=== PATIENT | female | born 1945 | race Caucasian/White ===

== ENCOUNTER 2016-09-16 19:18 | Inpatient (IN) | payer MEDICARE, BC ==
[~2016-09-16] VITALS: Ht 167.6 cm; Wt 63.6 kg
[2016-09-16 19:18] VITALS: BP 130/80; PULSE 80; RESP 22; TEMP 98.9; O2SAT 98
[~2016-09-16 19:18] MED LIST: ADVA100A INH; ALBU1AER INH; ALPR-138 PO; AMPH1TAB36 PO; B COTAB3 PO; BIOT10004 PO; BUPR150T PO; CALC600T34 PO; CYMB60CA PO; FLEX10TA PEG; LEVO112T17 PO; ONDANSETRON HCL 4 MG/2 ML VIAL IV PUSH ONE; PARENTERAL ELECTROLYTES PH 7.4 1000 ML BAG IV ONE; PILO5 PO; PREG100 PO; PROPOFOL 200 MG/20 ML AMP IV ONE; TAB-TAB PO; TOPI25 PO; VALT500T PO; VITA100T55 OR; VITD400 PO
[2016-09-16] MEDS ORDERED: SODIUM CHLORIDE 0.9% FLUSH 10 ML FLUSH IV FLUSH PRN (19:45)
[2016-09-16] MEDS ORDERED: ONDANSETRON HCL 4 MG/2 ML VIAL IVP ONE (19:45)
[2016-09-16] MEDS ORDERED: MORPHINE SULFATE 8 MG/ML INJ IV PUSH ONE (19:45)
--- NOTE | 2016-09-16 19:56 | PD ---
HPI Chief Complaint: abdominal pain Time Seen by Provider: 19:35 Travel History International Travel<30 days: No Contact w/Intl Traveler<30days: No History of Present Illness HPI Patient 70-year-old female presents emergency department for evaluation of abdominal pain the left lower quadrant. Patient states he got fairly severe approximately 1500 this afternoon. She endorses mild nausea without vomiting. She also endorses some mild blood in stool. Patient states this feels like the last time she had an intussusception. Patient relates a complex abdominal surgical history from a gastric bypass sometime in the past where she had 80% of her stomach removed as well as a hernia repair which was Located by an intussusception. Patient states he pain is been gradually worsening since onset. Denies any dysuria. PFSH Past Medical History ADD: Yes Blood Disorders: No Anxiety: Yes Depression: Yes Cancer: No Cardiovascular Problems: No Diabetes: No Diminished Hearing: No Endocrine: Yes Fibromyalgia: Yes GERD: Yes Glaucoma: No Headaches: Yes Immune Disorder: No Kidney Stones: Yes Musculoskeletal: Yes (RIGHT ROTATOR CUFF REPAIR) Psychiatric: Yes (ADD) Reproductive: No Respiratory: No Migraines: Yes Thyroid Disease: Yes PNEUMOCCOCAL Vaccine (Year): 1 Menopausal: Yes Past Surgical History Abdominal Surgery: Yes (GASTRIC BYPASS, INTUSSUSCEPTION 2009) Gynecologic Surgery: Yes ( SECTION) Other Surgery: Yes (GASTRIC BYPASS) Social History Alcohol Use: Yes (occasionally) Tobacco Use: Yes (1 PPD) Substance Use: No Allergies-Medications (Allergen,Severity, Reaction): Coded Allergies: No Known Allergies (Verified , 07/17/15) Reported Meds & Prescriptions Reported Meds & Active Scripts Active Reported Topamax (Topiramate) 50 Mg Tab 50 Mg PO BID Synthroid (Levothyroxine Sodium) 100 Mcg Tab 100 Mcg PO DAILY Lyrica (Pregabalin) 100 Mg Cap 100 Mg PO BID Losartan (Losartan Potassium) 25 Mg Tab 12.5 Mg PO DAILY Cymbalta DR (Duloxetine HCl) 60 Mg Capdr 60 Mg PO DAILY Wellbutrin SR 12 HR (Bupropion HCl) 100 Mg Tab 100 Mg PO Q12HR Adderall Xr 24 HR (Amphetamine/Dextroamphetamine) 20 Mg Cap 20 Mg PO DAILY Once daily in the morning. Xanax (Alprazolam) 0.25 Mg Tab 0.25 Mg PO Q4H PRN Review of Systems Except as stated in HPI: all other systems reviewed are Neg Physical Exam Narrative GENERAL: Well-developed, thin line on her side in minimal discomfort. SKIN: Focused skin assessment warm/dry. HEAD: Atraumatic. Normocephalic. EYES: Pupils equal and round. No scleral icterus. No injection or drainage. ENT: No nasal bleeding or discharge. Mucous membranes pink and moist. NECK: Trachea midline. No JVD. CARDIOVASCULAR: Regular rate and rhythm. No murmur appreciated. RESPIRATORY: No accessory muscle use. Clear to auscultation. Breath sounds equal bilaterally. GASTROINTESTINAL: Abdomen soft, moderately tender in the left lower quadrant, nondistended. Voluntary guarding. No rebound no percussive tenderness. Hepatic and splenic margins not palpable. MUSCULOSKELETAL: No obvious deformities. No clubbing. No cyanosis. No edema. NEUROLOGICAL: Awake and alert. No obvious cranial nerve deficits. Motor grossly within normal limits. Normal speech. PSYCHIATRIC: Appropriate mood and affect; insight and judgment normal. Data Data Last Documented VS Vital Signs Date Time Temp Pulse Resp B/P Pulse Ox O2 Delivery O2 Flow Rate FiO2 09/16/16 19:18 22 09/16/16 19:18 98 Room Air 09/16/16:18 98.9 80 130/80 Orders Complete Blood Count With Diff (09/16/16 19:39) Comprehensive Metabolic Panel (09/16/16 19:39) Lipase (09/16/16 19:39) Lactic Acid (09/16/16 19:39) Prothrombin Time / Inr (Pt) (09/16/16:39) Act Partial Throm Time (Ptt) (09/16/16 19:39) Urinalysis - C+S If Indicated (09/16/16 19:39) Ct Abd/Pel W Iv Contrast(Rout) (09/16/16 19:39) Iv Access Insert/Monitor (09/16/16 19:39) Ecg Monitoring (09/16/16 19:39) Oximetry (09/16/16 19:39) Ondansetron Inj (Zofran Inj) (09/16/16 19:45) Sodium Chloride 0.9% Flush (Ns Flush) (09/16/16 19:45) Electrocardiogram (09/16/16 19:39) Morphine Inj (Morphine Inj) (09/16/16 19:45) Sodium Chlor 0.9% 1000 Ml Inj (Ns 1000 M (09/16/16 20:15) Type And Screen (09/16/16 20:03) Ed Poc Ultrasound (09/16/16 ) Hydromorphone Pf Inj (Dilaudid Pf Inj) (09/16/16 21:45) Iohexol 350 Inj (Omnipaque 350 Inj) (09/16/16 21:36) Hydromorphone Pf Inj (Dilaudid Pf Inj) (09/16/16 22:30) Sodium Chlor 0.9% 1000 Ml Inj (Ns 1000 M (09/16/16 22:45) Chest, Single Ap (09/16/16 ) Admit Order (Ed Use Only) (09/16/16 ) Ampicillin-Sulbactam Inj (Unasyn Inj) (09/16/16 23:15) Labs Laboratory Tests Test 09/16/16 19:50 White Blood Count 8.9 TH/MM3 Red Blood Count 3.39 MIL/MM3 Hemoglobin 9.7 GM/DL Hematocrit 28.7 % Mean Corpuscular Volume 84.8 FL Mean Corpuscular Hemoglobin 28.5 PG Mean Corpuscular Hemoglobin 33.7 % Concent Red Cell Distribution Width 17.9 % Platelet Count 134 TH/MM3 Mean Platelet Volume 10.7 FL Neutrophils (%) (Auto) 78.1 % Lymphocytes (%) (Auto) 14.4 % Monocytes (%) (Auto) 4.4 % Eosinophils (%) (Auto) 2.6 % Basophils (%) (Auto) 0.5 % Neutrophils # (Auto) 6.9 TH/MM3 Lymphocytes # (Auto) 1.3 TH/MM3 Monocytes # (Auto) 0.4 TH/MM3 Eosinophils # (Auto) 0.2 TH/MM3 Basophils # (Auto) 0.0 TH/MM3 CBC Comment DIFF FINAL Differential Comment Prothrombin Time 10.9 SEC Prothromb Time International 1.0 RATIO Ratio Activated Partial 24.4 SEC Thromboplast Time Sodium Level 141 MEQ/L Potassium Level 4.0 MEQ/L Chloride Level 107 MEQ/L Carbon Dioxide Level 26.5 MEQ/L Anion Gap 8 MEQ/L Blood Urea Nitrogen 11 MG/DL Creatinine 0.92 MG/DL Estimat Glomerular Filtration 61 ML/MIN Rate Random Glucose 98 MG/DL Lactic Acid Level 0.8 mmol/L Calcium Level 8.2 MG/DL Total Bilirubin 0.2 MG/DL Aspartate Amino Transf 15 U/L (AST/SGOT) Alanine Aminotransferase 26 U/L (ALT/SGPT) Alkaline Phosphatase 78 U/L Total Protein 5.9 GM/DL Albumin 3.3 GM/DL Lipase 119 U/L Blood Type A NEGATIVE Antibody Screen NEGATIVE Blood Bank Comment MDM Medical Decision Making Medical Screen Exam Complete: Yes Emergency Medical Condition: Yes Interpretation(s) EKG shows normal sinus rhythm normal axis and normal R-wave progression. There is T-wave flattening in 2,3,aVF as well as V5 and V6. No ST elevation seen.. Possible left atrial enlargement. This is a borderline EKG. Differential Diagnosis Intussusception, acute abdomen, ruptured aortic aneurysm, sepsis, urinary tract infection, chronic abdominal pain. Narrative Course Patient roomed in emergency department, my initial impression is a hypotensive patient with a blood pressure of 70 systolic. While nursing is read taking blood pressure I have fast the patient and found that she has no free fluid in the abdomen.. Aorta is normal in caliber. While I have completed this the patient has had her blood pressure cuff adjusted and retaken and her blood pressure is 120/80. Likely this was a falsely low reading. Patient is a very complicated abdominal surgical history, gastric bypass, gastric bypass leakage, intussusception repaired by Dr. Oren Castelan in 2009. Patient has obvious need for repeat CAT scan. Last 24 hours Impressions Abdomen/Pelvis CT 09/16/161938 Signed Impressions: Service Date/Time: Friday, September 16, 2016 21:31 - CONCLUSION: 1. Intussuscepted and dilated small bowel in the lower anterior mid abdomen extending over a length of at least 10 cm. Appearance is similar to a prior study from May 2010. 2. Mild constipation. No free air or free fluid. 3. Nonobstructing calculi right kidney. Previous gastric bypass surgery. Jese Ochoa MD Discussed with Dr. Brunner at 2230 he is in route to the hospital. Dr. Nereida Vázquez has seen and evaluated the patient and the plan is to give a dose of Unasyn on the way to the operating room. The time being I have placed an order for floor admit. Patient care was titrated to Dr. Brunner and the patient was taken to the operating room. Diagnosis Primary Impression: Intussusception of small intestine Admitting Information Admitting Physician Requests: Admit Condition: Stable Kevin Mackenzie MD Sep 16, 2016 19:56
[2016-09-16] MEDS ORDERED: SODIUM CHLOR 0.9% 1000 ML INJ 1,000 ML IV ONE ×2 (20:15→22:45)
[2016-09-16 20:35] LABS: APTT (PATIENT) 24.4 SEC (24.3-30.1); AUTOMATED NEUTROPHIL # 6.9 TH/MM3 (1.8-7.7); BASOPHIL % 0.5 % (0.0-2.0); EOSINOPHIL # 0.2 TH/MM3 (0-0.4); EOSINOPHIL % 2.6 % (0.0-4.0); HEMATOCRIT 28.7 % (35.0-46.0); HEMO FLAGS DIFF FINAL; LYMPH % 14.4 % (9.0-44.0); LYMPHOCYTE # 1.3 TH/MM3 (1.0-4.8); MEAN CELL VOLUME 84.8 FL (80.0-100.0); MEAN CORPUSCULAR HEMOGLOBIN 28.5 PG (27.0-34.0); MEAN CORPUSCULAR HGB CONC 33.7 % (32.0-36.0); MONO % 4.4 % (0.0-8.0); NEUT % 78.1 % (16.0-70.0); PLATELET COUNT 134 TH/MM3 (150-450); PROTHROMBIN TIME - PATIENT 10.9 SEC (9.8-11.6); RED BLOOD COUNT 3.39 MIL/MM3 (4.00-5.30); RED CELL DISTRIBUTION WIDTH 17.9 % (11.6-17.2); WHITE BLOOD COUNT 8.9 TH/MM3 (4.0-11.0)
[2016-09-16 20:41] LABS: ANION GAP 8 MEQ/L (5-15); AST (GOT) 15 U/L (15-37); BICARBONATE 26.5 MEQ/L (21.0-32.0); BLOOD UREA NITROGEN 11 MG/DL (7-18); CHLORIDE 107 MEQ/L (98-107); GLOMERULAR FILTRATION RATE 61 ML/MIN (>89); SODIUM (NA) 141 MEQ/L (136-145)
[2016-09-16 20:44] LABS: ALKALINE PHOSPHATASE 78 U/L (45-117); ALT (GPT) 26 U/L (10-53); TOTAL BILIRUBIN ADULT 0.2 MG/DL (0.2-1.0)
[2016-09-16] MEDS ORDERED: IOHEXOL 350 MG/ML 10 ML VIAL (for RAD DIAG) IV ONE (21:36)
[2016-09-16] MEDS ORDERED: HYDROmorphone HCL PF 1 MG/ML VIAL IV PUSH ONE ×2 (21:45→22:30)
--- NOTE | 2016-09-16 21:56 | RADRPT ---
EXAM DATE/TIME: 09/16/2016 21:31 [facility] COMPARISON: No previous studies available for comparison. INDICATIONS : Left lower quadrant pain. IV CONTRAST: 70 cc Omnipaque 350 (iohexol) IV ORAL CONTRAST: No oral contrast ingested. RADIATION DOSE: 4.73 CTDIvol (mGy) MEDICAL HISTORY : Renal calculi. SURGICAL HISTORY : Gastric bypass. Intussusception ENCOUNTER: Initial ACUITY: 1 day PAIN SCALE: 6/10 LOCATION: Left lower quadrant TECHNIQUE: Volumetric scanning of the abdomen and pelvis was performed. Using automated exposure control and ad justment of the mA and/or kV according to patient size, radiation dose was kept as low as reasonably achievable to obtain optimal diagnostic quality images. FINDINGS: There is a loop of intussuscepted bowel in the lower midline and left abdomen that is very similar ap pearance to prior CT examination from May 2010. There is mild dilatation of more proximal small bowel. There is also mild constipation. No free air. Minimal linear scarring at the lung bases. No acute findings in the liver, spleen, adrenals or pancreas. Previous gastric bypass surgery. No obs tructing calculus upper pole right kidney. Left kidney unremarkable. CONCLUSION: 1. Intussuscepted and dilated small bowel in the lower anterior mid abdomen extending over a length o f at least 10 cm. Appearance is similar to a prior study from May 2010. 2. Mild constipation. No free air or free fluid. 3. Nonobstructing calculi right kidney. Previous gastric bypass surgery. Jese Ochoa MD on September 16, 2016 at 21:46 Board Certified Radiologist. This report was verified electronically.
[2016-09-16] MEDS ORDERED: LOSA25TA PO (22:03)
[2016-09-16] MEDS ORDERED: ALPR.25 PO (22:03)
[2016-09-16] MEDS ORDERED: ADDE20XR PO (22:03)
[2016-09-16] MEDS ORDERED: LEVO.1 PO (22:03)
[2016-09-16] MEDS ORDERED: LYRI100C PO (22:03)
[2016-09-16] MEDS ORDERED: CYMB60CA PO (22:03)
[2016-09-16] MEDS ORDERED: BUPR100CR PO (22:03)
[2016-09-16] MEDS ORDERED: TOPA50TA7 PO (22:03)
--- NOTE | 2016-09-16 22:59 | EKG ---
Date Performed: 09/16/2016 Time Performed: 19:42:36 PTAGE: 70 years EKG: Sinus rhythm POSSIBLE LEFT ATRIAL ENLARGEMENT NONSPECIFIC T-WAVE ABNORMALITY BORDERLINE ECG PREVIOUS TRACING : 07/25/2011 13.04 Compared to prior tracing no significant change DOCTOR: Raman Barragan Interpretating Date/Time 09/16/2016 22:57:37
[2016-09-16 23:00] VITALS: BP 141/69; PULSE 79; RESP 18; O2SAT 98
[2016-09-16] MEDS ORDERED: AMPICILLIN-SULBACTAM INJ 3 GM in SODIUM CHLORIDE 0.9% INJ 100 ML IV ONE (23:15)
[2016-09-16] MEDS ORDERED: DEXAMETHASONE SOD PHOS 4 MG/ML VIAL ONE (23:31)
[2016-09-16] MEDS ORDERED: fentaNYL CITRATE 250 MCG/5 ML AMP ONE (23:31)
[2016-09-16] MEDS ORDERED: SUGAMMADEX SODIUM 200 MG/2 ML VIAL IV PUSH ONE ×2 (23:31)
[2016-09-16] MEDS ORDERED: ACETAMINOPHEN 1000 MG/100 ML VIAL IV ONE (23:31)
[2016-09-16] MEDS ORDERED: BUPIVACAINE/EPINEPHRINE 0.25% PF 30 ML VIAL ONE (23:33)
[2016-09-17] VITALS (8 sets, daily range): BP systolic 107–157; BP diastolic 48–72; PULSE 63–72; RESP 16–20; TEMP 97–99.5; O2SAT 93–99
--- NOTE | 2016-09-17 00:05 | RADRPT ---
EXAM DATE/TIME: 09/16/2016 23:38 [facility] COMPARISON: No previous studies available for comparison. INDICATIONS : Shortness of breath. MEDICAL HISTORY : Renal calculi. SURGICAL HISTORY : Gastric bypass. Intussusception ENCOUNTER: Initial ACUITY: 1 day PAIN SCORE: 6/10 LOCATION: Bilateral chest FINDINGS: A single view of the chest demonstrates the lungs to be symmetrically aerated without evidence of mas s, infiltrate or effusion. The cardiomediastinal contours are unremarkable. Osseous structures are intact. CONCLUSION: Normal examination. Leon Sorenson MD on September 17, 2016 at 0:04 Board Certified Radiologist. This report was verified electronically.
[2016-09-17] MEDS: SODIUM CHLOR 0.9% 1000 ML INJ 1,000 ML IV SCH ×2 (00:33→13:53)
--- NOTE | 2016-09-17 00:41 | HHI.PR ---
Immediate Post Op Note Procedure Date: Sep 17, 2016 Pre Op Diagnosis: (1) Intussusception of small intestine Post Op Diagnosis: (1) Intussusception of small intestine Surgeon: Israel Stauffer [employer] Consultant(s): none Procedure: exploratory laparotomy, reduction of intussusception Findings: intussusception Complications: none Specimen(s) removed: none Estimated blood loss: 10ml Anesthesia: General, Local Drains: None IVF Patient to: PACU Patient Condition: Good Israel Stauffer MD Sep 17, 2016 00:41
[2016-09-17] MEDS ORDERED: SODIUM CHLORIDE 0.9% FLUSH 10 ML FLUSH IV FLUSH PRN (00:45)
[2016-09-17] MEDS ORDERED: PILL SPLITTER OTHER PRN (01:00)
[2016-09-17] MEDS: KETOROLAC TROMETHAMINE 30 MG/ML (IVP) VIAL IV PUSH PRN ×2 (01:14→09:15)
[2016-09-17] MEDS: SODIUM CHLORIDE 0.9% FLUSH 10 ML FLUSH IV FLUSH SCH ×3 (02:11→20:52)
[2016-09-17] MEDS: ACETAMINOPHEN/HYDROcodone 325 MG/5 MG TAB PO PRN ×5 (02:12→22:30)
[2016-09-17] MEDS: LEVOTHYROXINE SODIUM 100 MCG TAB PO SCH (04:16)
--- NOTE | 2016-09-17 05:39 | MH ---
cc: VICK HERRERA DATE OF ADMISSION: 09/16/2016 CHIEF COMPLAINT Intussusception. HISTORY OF PRESENT ILLNESS The patient is a 60-year-old female with complex past surgical history to include gastric bypass who presents in the emergency department at [facility] with severe abdominal pain. The patient underwent CT scan for abdominal pain which showed an acute intussusception. The patient had a previous episode of intussusception in 2009 treated by Oren Castelan MD, with laparotomy and reduction of intussusception. The patient also underwent a recent robotic revision of a gastric bypass followed by emergency exploration for a complication, so the patient describes in March at the [facility]. The patient states that since her surgery at the [facility] she has done well until a today at 3 o'clock this afternoon when she developed mild nausea without vomiting, with worsening pain and blood in her stool. REVIEW OF SYSTEMS A 12-point review of systems done with the patient and is negative except for the pertinent positives mentioned above in the History of Present Illness. PAST MEDICAL HISTORY 1. Anxiety and depression. 2. Fibromyalgia. 3. Gastroesophageal reflux disease. 4. Headaches. PAST SURGICAL HISTORY 1. Gastric bypass in early 1999. 2. Intussusception in 2009. 3. Revision of gastric bypass surgeries at [facility] in March x 2, robotic followed by open. SOCIAL HISTORY Occasionally drinks alcohol. ALLERGIES No known drug allergies. MEDICATIONS 1. Topamax. 2. Synthroid. 3. Lyrica. 4. Losartan. 5. Cymbalta. 6. Wellbutrin. 7. Adderall. 8. Xanax. FAMILY HISTORY Noncontributory. PHYSICAL EXAMINATION VITAL SIGNS: Temperature 98.9 degrees, pulse 80, blood pressure 130/80, O2 saturation 98%. GENERAL: The patient is a female and very uncomfortable, in no acute distress. HEENT: Head normocephalic, atraumatic. Pupils round and reactive to accommodate and light. Sclerae anicteric. LUNGS: Clear to auscultation bilaterally. Nonlabored breathing pattern. HEART: Regular rhythm. ABDOMEN: Soft, nondistended. Severe pain in epigastric. No focal peritonitis in epigastric area; without diffuse rebound or guarding or peritonitis. No ascites. Previous surgical scars without hernia. EXTREMITIES: No clubbing, cyanosis or edema. BACK: No CVA tenderness. NEUROLOGIC EXAM: The patient is alert, oriented x 3. Moving all extremities nonfocally. Cranial nerves II-XII are grossly intact. ASSESSMENT/PLAN The patient is a 70-year-old female with acute abdominal pain and intussusception found on CT scan. I discussed with the patient options including transfer to a tertiary center for bariatric surgery and surgical evaluation due to her complexity as well as nonoperative management versus operation here at [facility] urgently. The patient very much wishes to undergo urgent surgery at [facility] at this time. The risks, benefits and alternatives to exploratory laparotomy, reduction of intussusception and possible bowel resection were explained to the patient in detail and she agrees to undergo the procedure. We will proceed to the emergency room urgently for exploratory laparotomy. Vick Herrera MD AWG/SSB /11:16 PM /5:26 AM
[2016-09-17] MEDS: buPROPion HCL 100 MG SUSTAINED RELEASE TAB PO SCH ×2 (09:00→20:51)
[2016-09-17] MEDS: DEXTROAMPHETAMINE/AMPHETAMINE XR 20 MG CAP PO SCH (09:00)
[2016-09-17] MEDS: LOSARTAN 25 MG TAB PO SCH (09:00)
[2016-09-17] MEDS: PANTOPRAZOLE SODIUM 40 MG VIAL IV SCH (09:14)
[2016-09-17] MEDS: PREGABALIN 100 MG CAP PO SCH ×2 (09:15→20:51)
[2016-09-17] MEDS: TOPIRAMATE 25 MG TAB PO SCH ×2 (09:15→20:51)
[2016-09-17] MEDS: DULoxetine HCl DR 60 MG CAP PO SCH (09:16)
[2016-09-17 09:26] LABS: BLOOD, URINE NEG (NEG); GLUCOSE,URINE NEG (NEG); KETONE, URINE NEG (NEG); NITRITE,URINE NEG (NEG); URINE COLOR YELLOW (YELLW/STRAW)
[2016-09-17 09:30] LABS: COMMENT (UR) CULT NOT INDICATED; CULTURE IF INDICATED CULT NOT INDICATED
[2016-09-17] MEDS: MORPHINE SULFATE 4 MG/ML INJ IV PUSH PRN ×2 (12:08→21:02)
[2016-09-17] MEDS: ALPRAZolam 0.25 MG TAB PO PRN ×2 (12:08→22:15)
--- NOTE | 2016-09-17 18:02 | HHI.PR ---
Subjective Subjective Notes pain controlled Objective Vitals/I&O Vital Signs Date Time Temp Pulse Resp B/P Pulse Ox O2 Delivery O2 Flow Rate FiO2 09/17/16 16:30 99.5 68 20 140/65 97 09/17/16 12:11 Nasal Cannula 2.00 Labs Laboratory Tests Test 09/16/16 09/17/16 19:50 09:00 Prothrombin Time 10.9 Prothromb Time International 1.0 Ratio Activated Partial 24.4 Thromboplast Time Sodium Level 141 Potassium Level 4.0 Chloride Level 107 Carbon Dioxide Level 26.5 Anion Gap 8 Blood Urea Nitrogen 11 Creatinine 0.92 Estimat Glomerular Filtration 61 Rate Random Glucose 98 Lactic Acid Level 0.8 Calcium Level 8.2 Total Bilirubin 0.2 Aspartate Amino Transf 15 (AST/SGOT) Alanine Aminotransferase 26 (ALT/SGPT) Alkaline Phosphatase 78 Total Protein 5.9 Albumin 3.3 Lipase 119 Blood Type A NEGATIVE Antibody Screen NEGATIVE Blood Bank Comment White Blood Count 8.9 Red Blood Count 3.39 Hemoglobin 9.7 Hematocrit 28.7 Mean Corpuscular Volume 84.8 Mean Corpuscular Hemoglobin 28.5 Mean Corpuscular Hemoglobin 33.7 Concent Red Cell Distribution Width 17.9 Platelet Count 134 Mean Platelet Volume 10.7 Neutrophils (%) (Auto) 78.1 Lymphocytes (%) (Auto) 14.4 Monocytes (%) (Auto) 4.4 Eosinophils (%) (Auto) 2.6 Basophils (%) (Auto) 0.5 Neutrophils # (Auto) 6.9 Lymphocytes # (Auto) 1.3 Monocytes # (Auto) 0.4 Eosinophils # (Auto) 0.2 Basophils # (Auto) 0.0 CBC Comment DIFF FINAL Differential Comment Urine Color YELLOW Urine Turbidity CLEAR Urine pH 5.0 Urine Specific [place] 1.037 Urine Protein NEG Urine Glucose (UA) NEG Urine Ketones NEG Urine Occult Blood NEG Urine Nitrite NEG Urine Bilirubin NEG Urine Urobilinogen LESS THAN 2.0 Urine Leukocyte Esterase NEG Urine RBC LESS THAN 1 Urine WBC 1 Microscopic Urinalysis Comment CULT NOT INDICATED Cardiovascular: Regular Lungs: Clear Abdomen: Non-distended, Post-op tenderness Extremities: No edema, Perfused Narrative Exam incision c/d/i A/P Assessment and Plan 70yo female s/p exLap, reduction of intussusception, stable clears pain control OOB Israel Stauffer MD Sep 17, 2016 18:02
[2016-09-17] MEDS: ENOXAPARIN SODIUM 40 MG/0.4 ML SYRINGE SQ SCH (22:16)
[2016-09-18 00:35] VITALS: BP 125/64; PULSE 75; RESP 17; TEMP 99.3; O2SAT 96
[2016-09-18] MEDS: SODIUM CHLOR 0.9% 1000 ML INJ 1,000 ML IV SCH ×2 (02:14→16:33)
[2016-09-18] MEDS: LEVOTHYROXINE SODIUM 100 MCG TAB PO SCH (03:55)
[2016-09-18] MEDS: ACETAMINOPHEN/HYDROcodone 325 MG/5 MG TAB PO PRN ×5 (03:56→20:10)
[2016-09-18] MEDS: ALPRAZolam 0.25 MG TAB PO PRN ×3 (04:10→20:10)
[2016-09-18 08:00] VITALS: BP 146/79; PULSE 81; RESP 20; TEMP 96.3; O2SAT 94
[2016-09-18] MEDS: DULoxetine HCl DR 60 MG CAP PO SCH (08:10)
[2016-09-18] MEDS: buPROPion HCL 100 MG SUSTAINED RELEASE TAB PO SCH ×2 (08:10→20:09)
[2016-09-18] MEDS: PREGABALIN 100 MG CAP PO SCH ×2 (08:10→20:09)
[2016-09-18] MEDS: TOPIRAMATE 25 MG TAB PO SCH ×2 (08:10→20:09)
[2016-09-18] MEDS: LOSARTAN 25 MG TAB PO SCH (08:11)
[2016-09-18] MEDS: PANTOPRAZOLE SODIUM 40 MG VIAL IV SCH (08:11)
[2016-09-18] MEDS: DEXTROAMPHETAMINE/AMPHETAMINE XR 20 MG CAP PO SCH (08:12)
[2016-09-18] MEDS: KETOROLAC TROMETHAMINE 30 MG/ML (IVP) VIAL IV PUSH PRN ×3 (08:12→23:37)
[2016-09-18] MEDS: SODIUM CHLORIDE 0.9% FLUSH 10 ML FLUSH IV FLUSH SCH ×2 (08:24→20:12)
--- NOTE | 2016-09-18 11:29 | RADRPT ---
EXAM DATE/TIME: 09/18/2016 10:37 [facility] COMPARISON: CT ABDOMEN & PELVIS W CONTRAST, September 16, 2016, 21:31. INDICATIONS : Abdominal intussception. MEDICAL HISTORY : Renal calculi. SURGICAL HISTORY : Gastric bypass. Intussusception ENCOUNTER: Subsequent ACUITY: 3 days PAIN SCORE: 3/10 LOCATION: Abdomen, all quadrants. FINDINGS: The cecum is distended measuring 11.3 cm in size. There is moderate amount of stool involving the lashawn cending colon. No definite free air is identified for technique. Small bowel loops are nonspecific. T he patient's prior CT examination demonstrated small bowel intussusception. Inhomogeneous area of gas collection is present across the upper abdomen from the patient's transverse colon collapsed. CONCLUSION: Dilated cecum and the rest of the colon appears decompressed with extensive stool and the visualized bowel gas appear nonspecific for technique in this patient with known intussusception. Dawit Curtis MD on September 18, 2016 at 11:25 Board Certified Radiologist. This report was verified electronically.
[2016-09-18 12:00] VITALS: BP 119/57; PULSE 68; RESP 20; TEMP 96.1; O2SAT 96
--- NOTE | 2016-09-18 12:07 | MP ---
cc: VICK HERRERA DATE OF SURGERY 09/16/2016 PREOPERATIVE DIAGNOSES 1. History of gastric bypass. 2. Intussusception. POSTOPERATIVE DIAGNOSES 1. History of gastric bypass. 2. Intussusception. PROCEDURE 1. Exploratory laparotomy. 2. Open reduction of intussusception. ATTENDING SURGEON MD [employer] Staff. ANESTHESIA General. BLOOD LOSS Less than 10 cc. COMPLICATIONS None. FINDINGS A long intussusception, approximately 25 cm, completely reduced without evidence of any bowel ischemia or injury, lead point being the J/J anastomosis. INDICATIONS FOR PROCEDURE The patient is a 70-year-old female with a history of [place]-en-Y gastric bypass and previous history of intussusception who presented to [facility] with severe onset of abdominal pain. The patient states that the pain is similar to her episode of intussusception seven years ago that was treated with open reduction by Dr. Oren Castelan. The patient underwent a CT scan which was concerning for intussusception. The patient was seen and noted to be stable, without peritonitis but significant tenderness and discussion with the patient about treatment including the risks, benefits and alternatives to exploratory laparotomy were discussed with the patient. The patient agreed to undergo the procedure. All her questions were answered to her satisfaction. PROCEDURE After informed consent was obtained, the patient was taken to the operating and placed in position, the patient given general endotracheal anesthesia. The patient's abdomen was prepped and draped in the usual sterile fashion. Time-out was performed. The abdomen was entered just above the umbilicus. There was an approximately 6 cm incision in the patient's previous scar with an 11 blade scalpel. Using Bovie electrocautery, dissected the subcutaneous tissue, carried down to the midline fascia. The belly was reopened with the Bovie electrocautery over a hemostat. Once we got the layer to the peritoneum, we were able to place our finger into the abdominal cavity and were able to retract the abdominal wall up and opened the fascia the complete length of the incision. There were minimal adhesions. We lysed a few small adhesions and then we identified intussusception under the incision. This was somewhat delivered into the incision and we found the proximal and distal areas. There was an intussusception with the lead point at the J/J anastomosis with distal bowel intussuscepted into the more proximal point of the J/J anastomosis. This was milked back with very minimal retraction placed on the intussuscepted bowel and this delivered quite easily with some slow, constant pressure. The bowel was clearly viable and intact with no signs of any significant ischemia or trauma. There was a little mild edema of the bowel on the external portion of the intussusception. At this point in time we did quickly evaluated the remainder of the abdomen. There was no evidence of any intraabdominal pathology. There were minimal adhesions throughout the abdomen and the liver, the intraperitoneal portion of the colon and small bowel felt normal and in normal anatomic position. At this point in time, the bowel was in normal anatomic position and turned our attention towards closure. We closed the abdomen with a single #1 looped PDS. We closed the skin with 3-0 Vicryl, 4-0 Monocryl and Dermabond. Of note, the patient did have some local anesthetic instilled into the incision prior to closure of the skin. The patient was brought to the recovery room in stable condition. The patient tolerated the procedure well with no apparent complications. All counts were correct present. I was present and scrubbed for the entire procedure. MD EDUARD Biggs/MILLI /12:53 AM /11:46 AM
--- NOTE | 2016-09-18 18:40 | HHI.PR ---
Subjective Subjective Notes gas pain, KUB with dilated colon/constipation Objective Vitals/I&O Vital Signs Date Time Temp Pulse Resp B/P Pulse Ox O2 Delivery O2 Flow Rate FiO2 09/18/16 17:40 21 09/18/16 12:00 96.1 68 20 119/57 96 09/17/16 18:30 Nasal Cannula 2.00 Cardiovascular: Regular Lungs: Clear Abdomen: Post-op tenderness Extremities: No edema, Perfused Narrative Exam incision c/d/i A/P Assessment and Plan 70yo female s/p exLap, reduction of intussusception, stable clears constipation, try fleets enema OOB Israel Stauffer MD Sep 18, 2016 18:40
[2016-09-18 20:15] VITALS: BP 113/51; PULSE 70; RESP 17; TEMP 98.3; O2SAT 98
[2016-09-18] MEDS ORDERED: SOD PHOSPHATE/SOD BIPHOSPHATE (ADULT) ENEMA 133ML RECTAL ONE (20:15)
[2016-09-18] MEDS: ENOXAPARIN SODIUM 40 MG/0.4 ML SYRINGE SQ SCH (23:00)
[2016-09-19] VITALS (7 sets, daily range): BP systolic 116–138; BP diastolic 56–82; PULSE 66–88; RESP 16–18; TEMP 96.3–98.4; O2SAT 95–100
[2016-09-19] MEDS: ACETAMINOPHEN/HYDROcodone 325 MG/5 MG TAB PO PRN ×4 (03:40→17:47)
[2016-09-19] MEDS: SODIUM CHLOR 0.9% 1000 ML INJ 1,000 ML IV SCH ×2 (05:53→19:13)
[2016-09-19] MEDS: LEVOTHYROXINE SODIUM 100 MCG TAB PO SCH (06:13)
--- NOTE | 2016-09-19 07:02 | RADRPT ---
EXAM DATE/TIME: 09/19/2016 06:33 [facility] COMPARISON: ABDOMEN KUB ONLY, September 18, 2016, 10:37. INDICATIONS : Abdominal intussusception, evaluate ileus MEDICAL HISTORY : Renal calculi. intussusception SURGICAL HISTORY : repair of intussusception, partial gastrectomy ENCOUNTER: Subsequent ACUITY: 3 days PAIN SCORE: 3/10 LOCATION: Bilateral abdomen FINDINGS: Supine view of the abdomen was performed. The abdominal bowel gas pattern is normal. Gas-filled loop s of nondilated large and small bowel. No abnormal masses, calcifications, or organomegaly is seen. The osseous structures are unremarkable. CONCLUSION: Normal examination. Nestor Park Jr., MD on September 19, 2016 at 7:00 Board Certified Radiologist. This report was verified electronically.
[2016-09-19] MEDS: DULoxetine HCl DR 60 MG CAP PO SCH (08:23)
[2016-09-19] MEDS: DEXTROAMPHETAMINE/AMPHETAMINE XR 20 MG CAP PO SCH (08:25)
[2016-09-19] MEDS: ALPRAZolam 0.25 MG TAB PO PRN ×3 (08:25→17:46)
[2016-09-19] MEDS: SODIUM CHLORIDE 0.9% FLUSH 10 ML FLUSH IV FLUSH SCH ×2 (08:25→20:26)
[2016-09-19] MEDS: PREGABALIN 100 MG CAP PO SCH ×2 (08:26→20:26)
[2016-09-19] MEDS: buPROPion HCL 100 MG SUSTAINED RELEASE TAB PO SCH ×2 (08:26→20:26)
[2016-09-19] MEDS: TOPIRAMATE 25 MG TAB PO SCH ×2 (08:27→20:26)
[2016-09-19] MEDS: LOSARTAN 25 MG TAB PO SCH (08:27)
[2016-09-19] MEDS: PANTOPRAZOLE SODIUM 40 MG VIAL IV SCH (08:27)
[2016-09-19] MEDS: KETOROLAC TROMETHAMINE 30 MG/ML (IVP) VIAL IV PUSH PRN ×2 (09:50→16:41)
--- NOTE | 2016-09-19 13:01 | HHI.PR ---
Subjective Subjective Notes feels better, passing flatus Objective Vitals/I&O Vital Signs Date Time Temp Pulse Resp B/P Pulse Ox O2 Delivery O2 Flow Rate FiO2 09/19/16 09:36 98 09/19/16 08:00 97.8 85 16 138/74 09/18/16 20:00 Room Air 09/18/16 17:40 21 09/17/16 18:30 2.00 Cardiovascular: Regular Lungs: Clear Abdomen: Post-op tenderness Extremities: No edema, Perfused Narrative Exam incision c/d/i A/P Assessment and Plan 70yo female s/p exLap, reduction of intussusception, stable regular diet constipation, add colace OOB KUB looks better Israel Stauffer MD Sep 19, 2016 13:01
[2016-09-19] MEDS ORDERED: MAGNESIUM HYDROXIDE SUSP 30 ML CUP PO ONE (13:15)
[2016-09-19] MEDS: DOCUSATE SODIUM 100 MG CAP PO SCH ×2 (13:25→20:26)
[2016-09-19] MEDS: ENOXAPARIN SODIUM 40 MG/0.4 ML SYRINGE SQ SCH (23:00)
[2016-09-20] VITALS: BP_SYST 0; BP_SYST 121; BP_DIAS 0; BP_DIAS 59; PULSE 0; PULSE 93; RESP 0; RESP 20; TEMP 100.6; O2SAT 0; O2SAT 93
[2016-09-20 04:10] VITALS: TEMP 98.9
[2016-09-20] MEDS: KETOROLAC TROMETHAMINE 30 MG/ML (IVP) VIAL IV PUSH PRN ×2 (04:27→10:12)
[2016-09-20] MEDS: LEVOTHYROXINE SODIUM 100 MCG TAB PO SCH (04:32)
[2016-09-20 08:00] VITALS: BP 103/58; PULSE 75; RESP 18; TEMP 98.4; O2SAT 100
[2016-09-20] MEDS: SODIUM CHLOR 0.9% 1000 ML INJ 1,000 ML IV SCH (08:33)
[2016-09-20] MEDS: DEXTROAMPHETAMINE/AMPHETAMINE XR 20 MG CAP PO SCH (09:00)
[2016-09-20] MEDS: LOSARTAN 25 MG TAB PO SCH (09:00)
[2016-09-20 09:26] VITALS: O2SAT 96
[2016-09-20] MEDS: buPROPion HCL 100 MG SUSTAINED RELEASE TAB PO SCH (10:02)
[2016-09-20] MEDS: TOPIRAMATE 25 MG TAB PO SCH (10:03)
[2016-09-20] MEDS: DULoxetine HCl DR 60 MG CAP PO SCH (10:03)
[2016-09-20] MEDS: DOCUSATE SODIUM 100 MG CAP PO SCH (10:03)
[2016-09-20] MEDS: PREGABALIN 100 MG CAP PO SCH (10:04)
[2016-09-20] MEDS: PANTOPRAZOLE SODIUM 40 MG VIAL IV SCH (10:05)
[2016-09-20] MEDS: SODIUM CHLORIDE 0.9% FLUSH 10 ML FLUSH IV FLUSH SCH (10:06)
--- NOTE | 2016-09-20 11:32 | HHI.DS ---
Discharge Summary Admission Date Sep 16, 2016 at 23:08 Discharge Date: Sep 20, 2016 Admitting Diagnosis Intussception (1) Intussusception of small intestine Diagnosis: Principal Procedures Exploratory Laparotomy, reduction of intussusception Brief History The patient is a 70yo female with history of gastric bypass and intussusception who [place] [facility] [place] and recurrent intussusception. CBC/BMP: 09/16/16 1950 09/16/16 1950 PE at Discharge incision c/d/i Hospital Course The patient is a 70yo female with history of gastric bypass and intussusception who presented [place] [facility] [place] pain and recurrent intussusception. She was taken to the OR for Exploratory Laparotomy, reduction of intussusception, which she tolerated well. Her pain was controlled and she remained stable postoperatively. She was discharged home after an uncomplicated course. Pt Condition on Discharge: Good Discharge Disposition: Discharge Home Discharge Instructions DIET: Follow Instructions for: As Tolerated, No Restrictions Activities you can perform: Partial Weight Bearing Israel Stauffer MD Sep 20, 2016 11:32
== END 2016-09-20 13:32 | disposition home or self-care (01) | DRG 346 ==
LOC: NEPD 19:18 → NEDA 23:08 → N06B 09-17 02:26
PROVIDERS: ADMIT Surgery; ATTEND Surgery
PROC: 0WJP0ZZ Inspection of Gastrointestinal Tract, Open Approach (ICD-10-PCS; 2016-09-16)
PROC: 0DSA0ZZ Reposition Jejunum, Open Approach (ICD-10-PCS; principal; 2016-09-16 23:53)
DX: K56.1 Intussusception (principal); N20.0 Calculus of kidney; F32.9 Major depressive disorder, single episode, unspecified; F41.9 Anxiety disorder, unspecified; Z98.84 Bariatric surgery status; M79.7 Fibromyalgia; K21.9 Gastro-esophageal reflux disease without esophagitis; Z87.442 Personal history of urinary calculi; F17.210 Nicotine dependence, cigarettes, uncomplicated; K59.00 Constipation, unspecified
CPT/HCPCS: 71010; 74000; 74177; 80053; 81001; 83605; 83690; 85025; 85610; 85730; 86850; 86900; 86901; 93005; 96361; 96374; 96375; 96376; C9113; J0131; J0295; J1100; J1170; J1885; J2270; J2405; J3010; J7030; Q9967

== ENCOUNTER 2016-10-11 07:57 | Inpatient (IN) | payer MEDICARE, BC ==
[~2016-10-11] VITALS: Ht 167.6 cm; Wt 53.0 kg
[2016-10-11] VITALS (7 sets, daily range): BP systolic 132–159; BP diastolic 64–74; PULSE 86–105; RESP 14–20; TEMP 98.6–101.2; O2SAT 96–98
[~2016-10-11 07:57] MED LIST changes: +ADDE20XR PO; -ADVA100A INH; -ALBU1AER INH; -ALPR-138 PO; +ALPR.25 PO; -AMPH1TAB36 PO; -B COTAB3 PO; -BIOT10004 PO; +BUPR100CR PO; -BUPR150T PO; -CALC600T34 PO; -FLEX10TA PEG; +LEVO.1 PO; -LEVO112T17 PO; +LOSA25TA PO; +LYRI100C PO; -ONDANSETRON HCL 4 MG/2 ML VIAL IV PUSH ONE; -PARENTERAL ELECTROLYTES PH 7.4 1000 ML BAG IV ONE; -PILO5 PO; -PREG100 PO; -PROPOFOL 200 MG/20 ML AMP IV ONE; -TAB-TAB PO; +TOPA50TA7 PO; -TOPI25 PO; -VALT500T PO; -VITA100T55 OR; -VITD400 PO
--- NOTE | 2016-10-11 08:26 | PD ---
HPI Chief Complaint: Wound/Suture/Staple Re-Check Time Seen by Provider: 08:11 Travel History International Travel<30 days: No Contact w/Intl Traveler<30days: No Traveled to known affect area: No History of Present Illness HPI 71yo F with a complicated surgical history presents with c/o worsening abdominal pain. Pt had ex lap and reduction of intussusception for Dr. Stauffer 09/16/16 and was hospitalized till 09/20/16. Pt followed up with Dr. Stauffer October [address] scan in [place] October 08. That was reviewed by surgery and did not show any abscess but pt was informed to come to the ED if pain worsens. Pt states that pain has worsened and is periumbilical and right sided. Denies any fever at home. Denies any chest pains, sob, n/v, urinary complaints. Took narco this morning which did help with pain. Last drank water /coffee at 7am. PFSH Past Medical History ADD: Yes Arthritis: No Asthma: No Blood Disorders: No Anxiety: Yes Depression: Yes Cancer: No Cardiovascular Problems: No Cerebrovascular Accident: No Diabetes: No Diminished Hearing: No Endocrine: Yes Fibromyalgia: Yes GERD: Yes Glaucoma: No Headaches: Yes Immune Disorder: No Kidney Stones: Yes Musculoskeletal: Yes (RIGHT ROTATOR CUFF REPAIR) Psychiatric: Yes (ADD) Reproductive: No Respiratory: No Migraines: Yes Thyroid Disease: Yes Ulcer: No PNEUMOCCOCAL Vaccine (Year): 1 Menopausal: Yes Past Surgical History Abdominal Surgery: Yes (GASTRIC BYPASS, INTUSSUSCEPTION 2009) Gynecologic Surgery: Yes ( SECTION) Other Surgery: Yes (GASTRIC BYPASS) Social History Alcohol Use: No Tobacco Use: No Substance Use: No Allergies-Medications (Allergen,Severity, Reaction): Coded Allergies: No Known Allergies (Verified , 07/17/15) Reported Meds & Prescriptions Reported Meds & Active Scripts Active Reported Lortab (Hydrocodone-Acetaminophen) 5-325 Mg Tab 1 Tab PO Q6H PRN Topamax (Topiramate) 50 Mg Tab 50 Mg PO BID Synthroid (Levothyroxine Sodium) 100 Mcg Tab 100 Mcg PO DAILY Lyrica (Pregabalin) 100 Mg Cap 100 Mg PO BID Losartan (Losartan Potassium) 25 Mg Tab 12.5 Mg PO DAILY Cymbalta DR (Duloxetine HCl) 60 Mg Capdr 60 Mg PO DAILY Wellbutrin SR 12 HR (Bupropion HCl) 100 Mg Tab 100 Mg PO Q12HR Adderall Xr 24 HR (Amphetamine/Dextroamphetamine) 20 Mg Cap 20 Mg PO DAILY Once daily in the morning. Xanax (Alprazolam) 0.25 Mg Tab 0.25 Mg PO Q4H PRN Review of Systems Except as stated in HPI: all other systems reviewed are Neg Physical Exam Narrative GENERAL: 71yo F in mild distress. SKIN: Focused skin assessment warm/dry. HEAD: Atraumatic. Normocephalic. CARDIOVASCULAR: Regular rate and rhythm. No murmur appreciated. RESPIRATORY: No accessory muscle use. Clear to auscultation. Breath sounds equal bilaterally. GASTROINTESTINAL: Abdomen soft, +Midline surgical scar with some surrounding erythema but no purulent discharge or drainage. Mild edema surrounding surgical site and pt states it has gotten worst, ttp. +TTP suprapubic, LUQ, RUQ , RLQ. MUSCULOSKELETAL: No obvious deformities. No clubbing. No cyanosis. No edema. NEUROLOGICAL: Awake and alert. No obvious cranial nerve deficits. Motor grossly within normal limits. Normal speech. PSYCHIATRIC: Appropriate mood and affect; insight and judgment normal. Data Data Last Documented VS Vital Signs Date Time Temp Pulse Resp B/P Pulse Ox O2 Delivery O2 Flow Rate FiO2 10/11/16 10:40 90 18 133/67 98 Room Air 10/11/16 08:12 98.6 Orders Complete Blood Count With Diff (10/11/16 08:20) Comprehensive Metabolic Panel (10/11/16 08:20) Lipase (10/11/16 08:20) Prothrombin Time / Inr (Pt) (10/11/16 08:20) Act Partial Throm Time (Ptt) (10/11/16 08:20) Urinalysis - C+S If Indicated (10/11/16 08:20) Ct Abd/Pel W Iv Contrast(Rout) (10/11/16 08:20) Iv Access Insert/Monitor (10/11/16 08:20) Ecg Monitoring (10/11/16 08:20) Oximetry (10/11/16 08:20) Sodium Chloride 0.9% Flush (Ns Flush) (10/11/16 08:30) Morphine Inj (Morphine Inj) (10/11/16 08:30) Urine Culture (10/11/16 08:25) Piperacil-Tazo 3.375 Gm Premix (Zosyn 3. (10/11/16 09:30) Blood Culture (10/11/16 09:19) Lactic Acid Sepsis Protocol (10/11/16 09:19) Sodium Chlor 0.9% 1000 Ml Inj (Ns 1000 M (10/11/16 09:30) Iohexol 350 Inj (Omnipaque 350 Inj) (10/11/16 09:36) Morphine Inj (Morphine Inj) (10/11/16 10:15) Consult General Surgery (10/11/16 ) Admit Order (Ed Use Only) (10/11/16 10:58) Labs Laboratory Tests Test 10/11/16 10/11/16 08:25 09:00 White Blood Count 21.4 TH/MM3 Red Blood Count 3.55 MIL/MM3 Hemoglobin 9.4 GM/DL Hematocrit 29.1 % Mean Corpuscular Volume 82.1 FL Mean Corpuscular Hemoglobin 26.6 PG Mean Corpuscular Hemoglobin 32.4 % Concent Red Cell Distribution Width 18.1 % Platelet Count 355 TH/MM3 Mean Platelet Volume 9.9 FL Neutrophils (%) (Auto) 87.9 % Lymphocytes (%) (Auto) 5.3 % Monocytes (%) (Auto) 6.0 % Eosinophils (%) (Auto) 0.2 % Basophils (%) (Auto) 0.6 % Neutrophils # (Auto) 18.8 TH/MM3 Lymphocytes # (Auto) 1.1 TH/MM3 Monocytes # (Auto) 1.3 TH/MM3 Eosinophils # (Auto) 0.0 TH/MM3 Basophils # (Auto) 0.1 TH/MM3 CBC Comment DIFF FINAL Differential Comment Prothrombin Time 11.4 SEC Prothromb Time International 1.0 RATIO Ratio Activated Partial 33.7 SEC Thromboplast Time Urine Color YELLOW Urine Turbidity HAZY Urine pH 6.0 Urine Specific [place] 1.019 Urine Protein 30 mg/dL Urine Glucose (UA) NEG mg/dL Urine Ketones 10 mg/dL Urine Occult Blood SMALL Urine Nitrite NEG Urine Bilirubin NEG Urine Urobilinogen 2.0 MG/DL Urine Leukocyte Esterase MOD Urine RBC 4 /hpf Urine WBC 10 /hpf Urine Squamous Epithelial 18 /hpf Cells Urine Bacteria MOD /hpf Urine Mucus MANY /lpf Microscopic Urinalysis Comment CULTURE INDICATED Sodium Level 132 MEQ/L Potassium Level 4.4 MEQ/L Chloride Level 98 MEQ/L Carbon Dioxide Level 24.1 MEQ/L Anion Gap 10 MEQ/L Blood Urea Nitrogen 7 MG/DL Creatinine 0.72 MG/DL Estimat Glomerular Filtration 80 ML/MIN Rate Random Glucose 96 MG/DL Calcium Level 8.5 MG/DL Total Bilirubin 0.4 MG/DL Aspartate Amino Transf 55 U/L (AST/SGOT) Alanine Aminotransferase 22 U/L (ALT/SGPT) Alkaline Phosphatase 144 U/L Total Protein 7.0 GM/DL Albumin 2.3 GM/DL Lipase 45 U/L Lactic Acid Level 1.4 mmol/L [facility] Medical Decision Making Medical Screen Exam Complete: Yes Emergency Medical Condition: Yes Interpretation(s) Laboratory Tests Test 10/11/16 10/11/16 08:25 09:00 White Blood Count 21.4 TH/MM3 (4.0-11.0) Red Blood Count 3.55 MIL/MM3 (4.00-5.30) Hemoglobin 9.4 GM/DL (11.6-15.3) Hematocrit 29.1 % (35.0-46.0) Mean Corpuscular Volume 82.1 FL (80.0-100.0) Mean Corpuscular Hemoglobin 26.6 PG (27.0-34.0) Mean Corpuscular Hemoglobin 32.4 % Concent (32.0-36.0) Red Cell Distribution Width 18.1 % (11.6-17.2) Platelet Count 355 TH/MM3 (150-450) Mean Platelet Volume 9.9 FL (7.0-11.0) Neutrophils (%) (Auto) 87.9 % (16.0-70.0) Lymphocytes (%) (Auto) 5.3 % (9.0-44.0) Monocytes (%) (Auto) 6.0 % (0.0-8.0) Eosinophils (%) (Auto) 0.2 % (0.0-4.0) Basophils (%) (Auto) 0.6 % (0.0-2.0) Neutrophils # (Auto) 18.8 TH/MM3 (1.8-7.7) Lymphocytes # (Auto) 1.1 TH/MM3 (1.0-4.8) Monocytes # (Auto) 1.3 TH/MM3 (0-0.9) Eosinophils # (Auto) 0.0 TH/MM3 (0-0.4) Basophils # (Auto) 0.1 TH/MM3 (0-0.2) CBC Comment DIFF FINAL Differential Comment Prothrombin Time 11.4 SEC (9.8-11.6) Prothromb Time International 1.0 RATIO Ratio Activated Partial 33.7 SEC Thromboplast Time (24.3-30.1) Urine Color YELLOW (YELLW/STRAW) Urine Turbidity HAZY (CLEAR) Urine pH 6.0 (5.0-8.5) Urine Specific [place] 1.019 (1.002-1.035) Urine Protein 30 mg/dL (NEG-TRACE) Urine Glucose (UA) NEG mg/dL (NEG) Urine Ketones 10 mg/dL (NEG) Urine Occult Blood SMALL (NEG) Urine Nitrite NEG (NEG) Urine Bilirubin NEG (NEG) Urine Urobilinogen 2.0 MG/DL (LESS THAN 2.0) Urine Leukocyte Esterase MOD (NEG) Urine RBC 4 /hpf (0-3) Urine WBC 10 /hpf (0-5) Urine Squamous Epithelial 18 /hpf (0-5) Cells Urine Bacteria MOD /hpf (NONE) Urine Mucus MANY /lpf (OCC) Microscopic Urinalysis Comment CULTURE INDICATED Sodium Level 132 MEQ/L (136-145) Potassium Level 4.4 MEQ/L (3.5-5.1) Chloride Level 98 MEQ/L (98-107) Carbon Dioxide Level 24.1 MEQ/L (21.0-32.0) Anion Gap 10 MEQ/L (5-15) Blood Urea Nitrogen 7 MG/DL (7-18) Creatinine 0.72 MG/DL (0.50-1.00) Estimat Glomerular Filtration 80 ML/MIN (>89) Rate Random Glucose 96 MG/DL (74-106) Calcium Level 8.5 MG/DL (8.5-10.1) Total Bilirubin 0.4 MG/DL (0.2-1.0) Aspartate Amino Transf 55 U/L (15-37) (AST/SGOT) Alanine Aminotransferase 22 U/L (10-53) (ALT/SGPT) Alkaline Phosphatase 144 U/L (45-117) Total Protein 7.0 GM/DL (6.4-8.2) Albumin 2.3 GM/DL (3.4-5.0) Lactic Acid Level 1.4 mmol/L (0.4-2.0) Last Impressions Abdomen/Pelvis CT 10/11/16 0820 Signed Impressions: Service Date/Time: Tuesday, October 11, 2016 09:31 - CONCLUSION: 1. There is an abscess arising the right lower quadrant tracking superiorly and anteriorly communicating with the skin where patient had previous incision from previous surgery. This is amenable to percutaneous CT-guided drainage placement. 2. Nonobstructing right-sided renal calculi. 3. Gastric bypass. Lars Bishop MD Differential Diagnosis Abdominal abscess vs. intussusception vs. fistula vs. nephrolithiasis vs. pyelonephritis Narrative Course 71yo F with periumbilical abdominal pain that is worsening. Labs reviewed, leukocytosis at 21.4. H/H is low, similar to last admission. Elevated AST and alk phos. Lactic acid 1.4. Na 132. UA showed moderate leukocyte WBC only 10. CT a/p showed abscess arising the right lower quadrant tracking superiorly and anteriorly communicating with the skin where patient had previous incision from previous surgery. This is amendable to percutaneous CT guided drainage placement. Nonobstructing right sided renal calculi. Discussed with Dr. Velasquez who is covering Dr. Stauffer and he recommended to admit to medicine , consult IR for drainage and he will see the patient as a consult. Discussed with Dr. Galaviz and accepted to his service. Placed a consult for IR for drainage. Pt given NS IVF, morphine 4mg IV x2, and zosyn. Critical Care Narrative Aggregate critical care time was 40 minutes. Time to perform other separately billable procedures was not included in the critical care time. My time did not include minutes spent treating any other patients simultaneously or on activities that did not directly contribute to the patient's treatment. The services I provided to this patient were to treat and/or prevent clinically significant deterioration that could result in: cardiovascular collapse or . I provided critical care services requiring my management, as noted below: Chart data review, documentation time, medication orders and management, vital sign assessments/reviewing monitor data, ordering and reviewing lab tests, ordering and interpreting/reviewing x-rays and diagnostic studies, care of the patient and discussion of the patient with the admitting physicians. Sepsis Criteria SIRS Criteria (2 or more): Temp > 100.9 or < 96.8, Heart rate over 90, WBC > 04789, < 4000 or > 10% bands Sepsis Criteria (SIRS+source): Infect source susp/known Diagnosis Primary Impression: Abdominal abscess Admitting Information Admitting Physician Requests: Admit Юлия Ji DO October 11, 2016 08:26
[2016-10-11] MEDS ORDERED: MORPHINE SULFATE 4 MG/ML INJ IV PUSH ONE ×2 (08:30→10:15)
[2016-10-11] MEDS ORDERED: SODIUM CHLORIDE 0.9% FLUSH 10 ML FLUSH IV FLUSH PRN ×2 (08:30→11:00)
[2016-10-11 08:53] LABS: AUTOMATED NEUTROPHIL # 18.8 TH/MM3 (1.8-7.7); BASOPHIL # 0.1 TH/MM3 (0-0.2); BASOPHIL % 0.6 % (0.0-2.0); EOSINOPHIL % 0.2 % (0.0-4.0); HEMATOCRIT 29.1 % (35.0-46.0); HEMO FLAGS DIFF FINAL; LYMPH % 5.3 % (9.0-44.0); LYMPHOCYTE # 1.1 TH/MM3 (1.0-4.8); MEAN CELL VOLUME 82.1 FL (80.0-100.0); MEAN CORPUSCULAR HEMOGLOBIN 26.6 PG (27.0-34.0); MEAN CORPUSCULAR HGB CONC 32.4 % (32.0-36.0); NEUT % 87.9 % (16.0-70.0); PLATELET COUNT 355 TH/MM3 (150-450); RED BLOOD COUNT 3.55 MIL/MM3 (4.00-5.30); RED CELL DISTRIBUTION WIDTH 18.1 % (11.6-17.2); WHITE BLOOD COUNT 21.4 TH/MM3 (4.0-11.0)
[2016-10-11] MEDS ORDERED: HYDR-3533 PO (09:00)
[2016-10-11 09:03] LABS: APTT (PATIENT) 33.7 SEC (24.3-30.1); BACTERIA, URINE MOD /hpf; BLOOD, URINE SMALL (NEG); COMMENT (UR) CULTURE INDICATED; CULTURE IF INDICATED CULTURE INDICATED; GLUCOSE,URINE NEG (NEG); KETONE, URINE 10 mg/dL (NEG); MUCUS URINE MANY /lpf (OCC); NITRITE,URINE NEG (NEG); PROTHROMBIN TIME - PATIENT 11.4 SEC (9.8-11.6); SQUAMOUS EPITHELIAL CELL URINE 18 /hpf (0-5); URINE COLOR YELLOW (YELLW/STRAW)
[2016-10-11 09:21] LABS: ALKALINE PHOSPHATASE 144 U/L (45-117); ALT (GPT) 22 U/L (10-53); ANION GAP 10 MEQ/L (5-15); AST (GOT) 55 U/L (15-37); BICARBONATE 24.1 MEQ/L (21.0-32.0); BLOOD UREA NITROGEN 7 MG/DL (7-18); CHLORIDE 98 MEQ/L (98-107); GLOMERULAR FILTRATION RATE 80 ML/MIN (>89); SODIUM (NA) 132 MEQ/L (136-145); TOTAL BILIRUBIN ADULT 0.4 MG/DL (0.2-1.0)
[2016-10-11 09:22] LABS: POTASSIUM 4.4 MEQ/L (3.5-5.1)
[2016-10-11] MEDS ORDERED: SODIUM CHLOR 0.9% 1000 ML INJ 1,000 ML IV ONE (09:30)
[2016-10-11] MEDS ORDERED: PIPERACIL-TAZO 3.375 GM PREMIX 50 ML IV ONE (09:30)
[2016-10-11] MEDS ORDERED: IOHEXOL 350 MG/ML 10 ML VIAL (for RAD DIAG) IV ONE (09:36)
--- NOTE | 2016-10-11 10:01 | RADRPT ---
EXAM DATE/TIME: 10/11/2016 09:31 [place] COMPARISON: No previous studies available for comparison. INDICATIONS : Worsening periumbilical pain for thee days; status post intussusception reduction. IV CONTRAST: 85 cc Omnipaque 350 (iohexol) IV ORAL CONTRAST: No oral contrast ingested. RADIATION DOSE: 9.96 CTDIvol (mGy) MEDICAL HISTORY : Renal calculi. Intussusception. SURGICAL HISTORY : Gastric bypass. section.Intussusception reduction. ENCOUNTER: Initial ACUITY: 3 days PAIN SCALE: 6/10 LOCATION: Bilateral periumbilical. TECHNIQUE: Volumetric scanning of the abdomen and pelvis was performed. Using automated exposure control and ad justment of the mA and/or kV according to patient size, radiation dose was kept as low as reasonably achievable to obtain optimal diagnostic quality images. FINDINGS: LOWER LUNGS: The visualized lower lungs are clear. LIVER: Homogeneous density without lesion. There is no dilation of the biliary tree. No calcified gallston es. SPLEEN: Normal size without lesion. PANCREAS: Within normal limits. KIDNEYS: Normal in size and shape. There is no mass, stone or hydronephrosis on the left. Several punctate no nobstructing upper pole calculi again seen measuring 2-3 mm.. ADRENAL GLANDS: Within normal limits. VASCULAR: There is no aortic aneurysm. BOWEL/MESENTERY: There is no free intraperitoneal air or fluid. Evidence of previous gastric bypass. There is an absce ss in the right lower quadrant tracking superiorly and anteriorly extending to the skin surface for p atient had previous incision. There is air and enhancement of the wall. This measures approximately 5 .5 x 3.4 x 11.9 cm. ABDOMINAL WALL: Within normal limits. RETROPERITONEUM: There is no lymphadenopathy. BLADDER: No wall thickening or mass. REPRODUCTIVE: Within normal limits. INGUINAL: There is no lymphadenopathy or hernia. MUSCULOSKELETAL: Within normal limits for patient age. CONCLUSION: 1. There is an abscess arising the right lower quadrant tracking superiorly and anteriorly communicat ing with the skin where patient had previous incision from previous surgery. This is amenable to perc utaneous CT-guided drainage placement. 2. Nonobstructing right-sided renal calculi. 3. Gastric bypass. Lars Bishop MD on October 11, 2016 at 9:54 Board Certified Radiologist. This report was verified electronically.
[2016-10-11] MEDS ORDERED: ONDANSETRON HCL 4 MG/2 ML VIAL IVP PRN (11:00)
[2016-10-11] MEDS ORDERED: NALOXONE HCL 0.4 MG/ML AMP IV PRN (11:00)
[2016-10-11] MEDS ORDERED: TEMAZEPAM 15 MG CAP PO PRN (11:00)
[2016-10-11] MEDS ORDERED: ACETAMINOPHEN 325 MG TAB PO PRN ×2 (11:00)
[2016-10-11] MEDS ORDERED: RESP: ALBUTEROL 2.5 MG/IPRATROPIUM 0.5 MG NEB (PRN) NEB (11:00)
[2016-10-11] MEDS ORDERED: MORPHINE SULFATE 4 MG/ML INJ IV PRN (11:00)
[2016-10-11] MEDS: SODIUM CHLOR 0.9% 1000 ML INJ 1,000 ML IV SCH (13:07)
[2016-10-11] MEDS: metroNIDAZOLE 500 MG INJ 100 ML IV SCH ×2 (13:23→22:04)
[2016-10-11] MEDS: ACETAMINOPHEN/HYDROcodone 325 MG/5 MG TAB PO PRN (13:45)
--- NOTE | 2016-10-11 14:15 | HHI.HP ---
[facility] Service [facility] Primary Care Physician Francisco Beltran MD Admission Diagnosis Abdominal abscess Diagnoses: (1) Abdominal abscess Chief Complaint: Abdominal pain Travel History International Travel<30 Days: No Contact w/Intl Traveler <30 Da: No Traveled to Known Affected Are: No Sepsis Criteria SIRS Criteria (2 or more): Heart rate over 90, WBC > 83163, < 4000 or > 10% bands Sepsis Criteria (SIRS+source): Infect source susp/known Criteria Outcome: Meets sepsis criteria History of Present Illness 71 year-old female was had a few abdominal surgeries complicated by intussusception for which she has been seen by Dr. Stauffer who had Performed lap and reduction of intussusception on 09/16/16; presented to the ED today for evaluation of worsening abdominal pain rated 10/10 in intensity with radiation without any associated nausea and vomiting or febrile episode. Patient was seen recently by general surgery on 10/06/[address] abdomen was ordered which was performed on 10/08/16 and review by without any evidence of abscess at a time. Current CT abdomen/pelvis revealed abscess and patient has elevated WBC. She denies any GI bleed Review of Systems Other 12 systems reviewed and are negative except for the one mentioned in history of present illness Past Family Social History Past Medical History ADD: Yes Anxiety: Yes Depression: Yes Endocrine: Yes Fibromyalgia: Yes GERD: Yes Headaches: Yes Kidney Stones: Yes Musculoskeletal: Yes (RIGHT ROTATOR CUFF REPAIR) Migraines: Yes Thyroid Disease: Yes Past Surgical History Abdominal Surgery: Yes (GASTRIC BYPASS, INTUSSUSCEPTION 2009) Gynecologic Surgery: Yes ( SECTION) Other Surgery: Yes (GASTRIC BYPASS) Reported Medications Lortab (Hydrocodone-Acetaminophen) 5-325 Mg Tab 1 Tab PO Q6H PRN Topamax (Topiramate) 50 Mg Tab 50 Mg PO BID Synthroid (Levothyroxine Sodium) 100 Mcg Tab 100 Mcg PO DAILY Lyrica (Pregabalin) 100 Mg Cap 100 Mg PO BID Losartan (Losartan Potassium) 25 Mg Tab 12.5 Mg PO DAILY Cymbalta DR (Duloxetine HCl) 60 Mg Capdr 60 Mg PO DAILY Wellbutrin SR 12 HR (Bupropion HCl) 100 Mg Tab 100 Mg PO Q12HR Adderall Xr 24 HR (Amphetamine/Dextroamphetamine) 20 Mg Cap 20 Mg PO DAILY Once daily in the morning. Xanax (Alprazolam) 0.25 Mg Tab 0.25 Mg PO Q4H PRN Allergies: Coded Allergies: No Known Allergies (Verified , 07/17/15) Family History father had head disease Mother has CVA Social History Alcohol Use: No Tobacco Use: No Substance Use: No Physical Exam Vital Signs Vital Signs Date Time Temp Pulse Resp B/P Pulse Ox O2 Delivery O2 Flow Rate FiO2 10/11/16 12:35 89 16 133/67 98 Room Air 10/11/16 10:40 90 18 133/67 98 Room Air 10/11/16 08:12 98.6 92 18 132/74 96 Room Air 10/11/16 08:11 89 18 10/11/16 08:01 99.0 105 14 137/66 98 Physical Exam GENERAL: This is a well-nourished, well-developed patient, in no apparent distress. SKIN: No rashes, ecchymoses or lesions. Cool and dry. HEAD: Atraumatic. Normocephalic. No temporal or scalp tenderness. EYES: Pupils equal round and reactive. Extraocular motions intact. No scleral icterus. No injection or drainage. ENT: Nose without bleeding, purulent drainage or septal hematoma. Throat without erythema, tonsillar hypertrophy or exudate. Uvula midline. Airway patent. NECK: Trachea midline. No JVD or lymphadenopathy. Supple, nontender, no meningeal signs. CARDIOVASCULAR: Regular rate and rhythm without murmurs, gallops, or rubs. RESPIRATORY: Clear to auscultation. Breath sounds equal bilaterally. No wheezes , rales, or rhonchi. GASTROINTESTINAL: Abdomen soft, non-tender, nondistended. +palpable masses at incision site with some surrounding cellulitis. No guarding. MUSCULOSKELETAL: Extremities without clubbing, cyanosis, or edema. No joint tenderness, effusion, or edema noted. No calf tenderness. Negative Homans sign bilaterally. NEUROLOGICAL: Awake and alert. Cranial nerves II through XII intact. Motor and sensory grossly within normal limits. Five out of 5 muscle strength in all muscle groups. Normal speech. Laboratory Laboratory Tests Test 10/11/16 10/11/16 08:25 09:00 White Blood Count 21.4 Red Blood Count 3.55 Hemoglobin 9.4 Hematocrit 29.1 Mean Corpuscular Volume 82.1 Mean Corpuscular Hemoglobin 26.6 Mean Corpuscular Hemoglobin 32.4 Concent Red Cell Distribution Width 18.1 Platelet Count 355 Mean Platelet Volume 9.9 Neutrophils (%) (Auto) 87.9 Lymphocytes (%) (Auto) 5.3 Monocytes (%) (Auto) 6.0 Eosinophils (%) (Auto) 0.2 Basophils (%) (Auto) 0.6 Neutrophils # (Auto) 18.8 Lymphocytes # (Auto) 1.1 Monocytes # (Auto) 1.3 Eosinophils # (Auto) 0.0 Basophils # (Auto) 0.1 CBC Comment DIFF FINAL Differential Comment Prothrombin Time 11.4 Prothromb Time International 1.0 Ratio Activated Partial 33.7 Thromboplast Time Urine Color YELLOW Urine Turbidity HAZY Urine pH 6.0 Urine Specific [place] 1.019 Urine Protein 30 Urine Glucose (UA) NEG Urine Ketones 10 Urine Occult Blood SMALL Urine Nitrite NEG Urine Bilirubin NEG Urine Urobilinogen 2.0 Urine Leukocyte Esterase MOD Urine RBC 4 Urine WBC 10 Urine Squamous Epithelial 18 Cells Urine Bacteria MOD Urine Mucus MANY Microscopic Urinalysis Comment CULTURE INDICATED Sodium Level 132 Potassium Level 4.4 Chloride Level 98 Carbon Dioxide Level 24.1 Anion Gap 10 Blood Urea Nitrogen 7 Creatinine 0.72 Estimat Glomerular Filtration 80 Rate Random Glucose 96 Calcium Level 8.5 Total Bilirubin 0.4 Aspartate Amino Transf 55 (AST/SGOT) Alanine Aminotransferase 22 (ALT/SGPT) Alkaline Phosphatase 144 Total Protein 7.0 Albumin 2.3 Lipase 45 Lactic Acid Level 1.4 Date/Time Procedure Status Source Growth 10/11/16 09:05 Aerobic Blood Culture Received Blood Peripheral Pending 10/11/16 09:05 Anaerobic Blood Culture Received Blood Peripheral Pending 10/11/16 08:25 Urine Culture Received Urine Clean Catch Pending Result Diagram: 10/11/1682410/11/16824 Imaging Last Impressions Abdomen/Pelvis CT 10/11/16819 Signed Impressions: Service Date/Time: Tuesday, October 11, 2016 09:31 - CONCLUSION: 1. There is an abscess arising the right lower quadrant tracking superiorly and anteriorly communicating with the skin where patient had previous incision from previous surgery. This is amenable to percutaneous CT-guided drainage placement. 2. Nonobstructing right-sided renal calculi. 3. Gastric bypass. Lars Bishop MD Assessment and Plan Problem List: (1) Abdominal abscess ICD Code: K65.1 Status: Acute (2) Sepsis ICD Code: A41.9 Status: Acute Assessment and Plan CC 11-year-old female with Sepsis: Meets sepsis criteria; Heart rate over 90, WBC > 59869, < 4000 or > 10% bands; Infect source susp/known (abdominal abscess); s/p Zosyn IV x1 in ED, Start Flagyl 500mg IV Q8H and continue with Zosyn IV Q8H pending culture Abdominal abscess CT abdomen/pelvics noted and review by me with finding of There is an abscess arising the right lower quadrant tracking superiorly and anteriorly communicating with the skin where patient had previous incision from previous surgery. Status post Zosyn in ED 1, continue with antibiotics and start Flagyl 500 mg IV every 8 Gen. surgery consultation and consider interventional radiology consultation for evaluation for CT-guided drainage Pain management accordingly Keep nothing by mouth, IV fluid hydration DVT prophylaxis: Bilateral SCDs Code Status Full code Discussed Condition With Patient, ED physician Physician Certification 2 Midnight Certification Type: Admission for Inpatient Services Order for Inpatient Services The services are ordered in accordance with Medicare regulations or non- Medicare payer requirements, as applicable. In the case of services not specified as inpatient-only, they are appropriately provided as inpatient services in accordance with the 2-midnight benchmark. Estimated LOS (days): 2 days is the estimated time the patient will need to remain in the hospital, assuming treatment plan goals are met and no additional complications. Post-Hospital Plan: Not yet determined Lars Galaviz MD October 11, 2016 14:15
[2016-10-11] MEDS ORDERED: PILL SPLITTER OTHER PRN (14:30)
[2016-10-11] MEDS ORDERED: LIDOCAINE 1%/EPINEPHrine 1:100,000 SOLN 20 ML VIAL ONE (16:22)
--- NOTE | 2016-10-11 16:29 | MB ---
cc: LOUISE KWON M.D. DATE OF CONSULTATION: 10/11/2016. REASON FOR CONSULTATION: Intra-abdominal abscess. HISTORY OF PRESENT ILLNESS: This is a pleasant 71-year-old female who has had a few surgeries in the who past developed intussusception. She was operated on by Dr. Stauffer over a month ago and then subsequently developed an intraabdominal abscess. She was admitted to the hospital to aid in treatment. Surgery was consulted to assist in management. PAST MEDICAL HISTORY: 1. Significant for intussusception previously done a few years back by Dr. Oren Castelan and then after that she had a gastric bypass up at the [place] complicated by what sounds like a wound infection and/or fistula and then she got better and then had another intussusception recently that was reduced by Dr. Stauffer and then developed this intra-abdominal abscess. 2. She has never had any cardiac problems. Her blood pressure is a little bit elevated sometimes. 3. No GI complaints except for the gastric bypass surgery and the intussusception. 4. Some reflux in the past. 5. She has had a section as well. 6. History of kidney stones. ALLERGIES: No known allergies. MEDICATIONS Outpatient medications include: 1. Xanax. 2. Adderall. 3. Wellbutrin. 4. Cymbalta. 5. Lortab. 6. Synthroid. 7. Losartan. 8. Lyrica. 9. Topamax. PHYSICAL EXAMINATION: GENERAL: On physical exam she is sitting up. She is a thin lady. NECK: Supple. CHEST: Clear. HEART: Regular rate. ABDOMEN: Thin soft with surgical wound with some puffiness in the midline at the inferior aspect. She has some mild soreness of the right lower quadrant. EXTREMITIES: Moves all extremities. No cyanosis or edema. NEUROLOGIC: She is alert and oriented. LABORATORY DATA: She had a white count of 21, hemoglobin and hematocrit of 9 and 29. Coags normal. Comprehensive metabolic panel is fairly normal. RADIOLOGICAL STUDIES: Imaging studies show an intra-abdominal abscess and subcutaneous abscess. Measured the abscess in the abdomen about 11 cm. ASSESSMENT: Intra-abdominal abscess with small subcutaneous components. PLAN: I talked to Dr. Bishop_. He feels this is amenable to CT-guided drainage, which I agree with. She may have some to rain in the subcutaneous tissue as well but with her recent surgery and her clinical status at this time, I think she is best served with CT-guided drainage of the intra-abdominal process. This was explained to the patient and the and they appeared to understand. MD PABLO Argueta/NELDA /3:46 PM /4:20 PM MTDTrish
[2016-10-11] MEDS ORDERED: LORazepam 2 MG/ML VIAL ONE (16:42)
[2016-10-11] MEDS ORDERED: fentaNYL CITRATE 250 MCG/5 ML AMP ONE (16:42)
[2016-10-11] MEDS ORDERED: MIDAZOLAM HCL 2 MG/2 ML VIAL ONE (17:07)
--- NOTE | 2016-10-11 17:38 | PD.RAD ---
Post CT Procedure Prog Note Pre Procedure Diagnosis: (1) Abdominal abscess (2) Sepsis Post Procedure Diagnosis: (1) Abdominal abscess (2) Sepsis Procedure Date: October 11, 2016 Supervising Radiologist: Tim Green Anesthesia: Local, Conscious Sedation Plan of Activity Patient to Unit: Nursing Unit Patient Condition: Fair See PACS Report for procedural detail/treatment Drainage Procedure Procedure 1 Imaging Guidance: CT Side: Right Procedure Type: Abscess Drainage Procedure: Placement Drainage: Suction Fluid Removal (CCs): 200 Fluid Description: Purulent Tim Green MD October 11, 2016 17:38
[2016-10-11] MEDS: PIPERACIL-TAZO 3.375 GM PREMIX 50 ML IV SCH (20:29)
[2016-10-11] MEDS: SODIUM CHLORIDE 0.9% FLUSH 10 ML FLUSH IV FLUSH SCH (21:00)
[2016-10-11] MEDS: PREGABALIN 100 MG CAP PO SCH (22:04)
[2016-10-11] MEDS: buPROPion HCL 100 MG SUSTAINED RELEASE TAB PO SCH (22:04)
[2016-10-11] MEDS: TOPIRAMATE 25 MG TAB PO SCH (22:05)
[2016-10-12] VITALS: BP 135/62; PULSE 92; RESP 20; TEMP 101.4; O2SAT 96
[2016-10-12] MEDS: SODIUM CHLOR 0.9% 1000 ML INJ 1,000 ML IV SCH ×2 (01:30→16:02)
[2016-10-12] MEDS: PIPERACIL-TAZO 3.375 GM PREMIX 50 ML IV SCH ×3 (02:15→18:02)
[2016-10-12 04:00] VITALS: BP 138/75; PULSE 85; RESP 20; TEMP 100.7; O2SAT 96
[2016-10-12 05:24] LABS: AUTOMATED NEUTROPHIL # 16.3 TH/MM3 (1.8-7.7); BASOPHIL % 0.2 % (0.0-2.0); EOSINOPHIL % 0.1 % (0.0-4.0); HEMATOCRIT 23.8 % (35.0-46.0); HEMO FLAGS DIFF FINAL; LYMPH % 5.4 % (9.0-44.0); MEAN CELL VOLUME 81.6 FL (80.0-100.0); MEAN CORPUSCULAR HEMOGLOBIN 26.7 PG (27.0-34.0); MEAN CORPUSCULAR HGB CONC 32.8 % (32.0-36.0); MONO % 6.2 % (0.0-8.0); NEUT % 88.1 % (16.0-70.0); PLATELET COUNT 281 TH/MM3 (150-450); RED BLOOD COUNT 2.91 MIL/MM3 (4.00-5.30); RED CELL DISTRIBUTION WIDTH 17.5 % (11.6-17.2); WHITE BLOOD COUNT 18.5 TH/MM3 (4.0-11.0)
[2016-10-12] MEDS: metroNIDAZOLE 500 MG INJ 100 ML IV SCH ×3 (05:47→20:28)
[2016-10-12] MEDS: LEVOTHYROXINE SODIUM 100 MCG TAB PO SCH (05:47)
[2016-10-12 05:51] LABS: ALKALINE PHOSPHATASE 144 U/L (45-117); ALT (GPT) 16 U/L (10-53); ANION GAP 11 MEQ/L (5-15); AST (GOT) 20 U/L (15-37); BICARBONATE 22.3 MEQ/L (21.0-32.0); BLOOD UREA NITROGEN 4 MG/DL (7-18); CHLORIDE 103 MEQ/L (98-107); GLOMERULAR FILTRATION RATE 122 ML/MIN (>89); POTASSIUM 3.3 MEQ/L (3.5-5.1); SODIUM (NA) 136 MEQ/L (136-145); TOTAL BILIRUBIN ADULT 0.5 MG/DL (0.2-1.0)
[2016-10-12] MEDS ORDERED: POTASSIUM CHLORIDE 10 MEQ CONTROLLED RELEASE TAB PO ONE (07:15)
[2016-10-12 08:00] VITALS: BP 138/69; PULSE 76; RESP 16; TEMP 99.6; O2SAT 97
[2016-10-12] MEDS: SODIUM CHLORIDE 0.9% 10 ML VIAL IRRIGATION SCH (09:00)
--- NOTE | 2016-10-12 09:27 | HHI.PR ---
Subjective Remarks Follow-up abdominal abscess 10/12/16-patient seen and examined, she is status post CT-guided aspiration of abdominal abscess, denies any significant abdominal pain. Spiking fevers. by the bedside. Objective Vitals Vital Signs Date Time Temp Pulse Resp B/P Pulse Ox O2 Delivery O2 Flow Rate FiO2 10/12/16 04:00 100.7 85 20 138/75 96 10/12/16 00:00 101.4 92 20 135/62 96 10/11/16 23:23 18 10/11/16 23:23 18 10/11/16 20:00 100.1 95 20 146/69 97 10/11/16 18:44 83 18 135/53 96 Room Air 10/11/16 18:30 86 23 136/60 99 Room Air 10/11/16 18:15 89 22 145/57 100 Room Air 10/11/16 18:00 88 22 155/70 100 Nasal Cannula 2 10/11/16 17:49 100.2 90 16 148/65 97 Nasal Cannula 2 10/11/16 16:00 100.3 86 18 133/64 96 10/11/16 14:00 101.2 94 18 159/73 98 10/11/16 12:35 89 16 133/67 98 Room Air 10/11/16 10:40 90 18 133/67 98 Room Air I/O 10/11/16 10/11/16 10/11/16 10/12/16 10/12/16 10/12/16 07:00 15:00 23:00 07:00 15:00 23:00 Intake Total 0 ml 100 ml 1224 ml Output Total 200 ml 75 ml Balance 0 ml -100 ml 1149 ml Intake Oral 0 ml 0 ml 480 ml IV Total 0 ml 744 ml Other 100 ml Output Drainage Total 200 ml 75 ml # Voids 1 5 Result Diagram: 10/12/16 0448 10/12/16 0448 Imaging Last Impressions Abdomen/Pelvis CT 10/11/16 0820 Signed Impressions: Service Date/Time: Tuesday, October 11, 2016 09:31 - CONCLUSION: 1. There is an abscess arising the right lower quadrant tracking superiorly and anteriorly communicating with the skin where patient had previous incision from previous surgery. This is amenable to percutaneous CT-guided drainage placement. 2. Nonobstructing right-sided renal calculi. 3. Gastric bypass. Lars Bishop MD Objective Remarks GENERAL: NAD SKIN: Warm and dry. HEAD: Normocephalic. EYES: No scleral icterus. No injection or drainage. NECK: Supple, trachea midline. No JVD or lymphadenopathy. CARDIOVASCULAR: Regular rate and rhythm without murmurs, gallops, or rubs. RESPIRATORY: Breath sounds equal bilaterally. No accessory muscle use. GASTROINTESTINAL: Abdomen soft, non-tender, nondistended. Surrounding and improving erythema at incision site. Drain in place MUSCULOSKELETAL: No cyanosis, or edema. BACK: Nontender without obvious deformity. No CVA tenderness. A/P Problem List: (1) Abdominal abscess ICD Code: K65.1 Status: Acute (2) Sepsis ICD Code: A41.9 Status: Acute Assessment and Plan 71-year-old female with Sepsis: Heart rate over 90, WBC > 04856, < 4000 or > 10% bands; Infect source susp/known (abdominal abscess); s/p Zosyn IV x1 in ED, continue Flagyl 500mg IV Q8H and continue with Zosyn IV Q8H pending culture Abdominal abscess Febrile episodes CT abdomen/pelvics finding of There is an abscess arising the right lower quadrant tracking superiorly and anteriorly communicating with the skin where patient had previous incision from previous surgery. Status post CT-guided drainage of abscess 10/11/16 and monitor drain output Currently on Zosyn and Flagyl 500 mg IV every 8H pending culture reports Appreciate input from neurosurgery Pain management accordingly, IV fluid hydration DVT prophylaxis: Bilateral SCDs Lars Galaviz MD October 12, 2016 09:27 Lars Galaviz MD October 12, 2016 09:27
[2016-10-12] MEDS: ACETAMINOPHEN/HYDROcodone 325 MG/5 MG TAB PO PRN ×3 (10:12→20:29)
[2016-10-12] MEDS: LOSARTAN 25 MG TAB PO SCH (10:13)
[2016-10-12] MEDS: DEXTROAMPHETAMINE/AMPHETAMINE XR 20 MG CAP PO SCH (10:13)
[2016-10-12] MEDS: DULoxetine HCl DR 60 MG CAP PO SCH (10:13)
[2016-10-12] MEDS: buPROPion HCL 100 MG SUSTAINED RELEASE TAB PO SCH ×2 (10:14→20:25)
[2016-10-12] MEDS: PREGABALIN 100 MG CAP PO SCH ×2 (10:14→20:25)
[2016-10-12] MEDS: TOPIRAMATE 25 MG TAB PO SCH ×2 (10:16→20:25)
[2016-10-12 12:00] VITALS: BP 128/76; PULSE 77; RESP 22; TEMP 97.2; O2SAT 99
[2016-10-12] MEDS: SODIUM CHLORIDE 0.9% FLUSH 10 ML FLUSH IV FLUSH SCH ×2 (12:32→20:24)
--- NOTE | 2016-10-12 13:04 | HHI.PR ---
Subjective Subjective Notes feels much better Objective Vitals/I&O Vital Signs Date Time Temp Pulse Resp B/P Pulse Ox O2 Delivery O2 Flow Rate FiO2 10/12/16 04:00 100.7 85 20 138/75 96 10/11/16 18:44 Room Air 10/11/16 18:00 2 Labs Laboratory Tests Test 10/12/16 04:48 White Blood Count 18.5 Red Blood Count 2.91 Hemoglobin 7.8 Hematocrit 23.8 Mean Corpuscular Volume 81.6 Mean Corpuscular Hemoglobin 26.7 Mean Corpuscular Hemoglobin 32.8 Concent Red Cell Distribution Width 17.5 Platelet Count 281 Mean Platelet Volume 9.2 Neutrophils (%) (Auto) 88.1 Lymphocytes (%) (Auto) 5.4 Monocytes (%) (Auto) 6.2 Eosinophils (%) (Auto) 0.1 Basophils (%) (Auto) 0.2 Neutrophils # (Auto) 16.3 Lymphocytes # (Auto) 1.0 Monocytes # (Auto) 1.1 Eosinophils # (Auto) 0.0 Basophils # (Auto) 0.0 CBC Comment DIFF FINAL Differential Comment Sodium Level 136 Potassium Level 3.3 Chloride Level 103 Carbon Dioxide Level 22.3 Anion Gap 11 Blood Urea Nitrogen 4 Creatinine 0.50 Estimat Glomerular Filtration 122 Rate Random Glucose 94 Calcium Level 8.4 Total Bilirubin 0.5 Aspartate Amino Transf 20 (AST/SGOT) Alanine Aminotransferase 16 (ALT/SGPT) Alkaline Phosphatase 144 Total Protein 5.5 Albumin 2.1 Date/Time Procedure Status Source Growth 10/11/16 18:42 Gram Stain - Final Resulted Wound Abdomen 10/11/16 18:42 Wound Culture Resulted Wound Abdomen Pending 10/11/16 09:05 Aerobic Blood Culture - Preliminary Resulted Blood Peripheral NO GROWTH IN 1 DAY 10/11/16 09:05 Anaerobic Blood Culture - Preliminary Resulted Blood Peripheral NO GROWTH IN 1 DAY 10/11/16 08:25 Urine Culture - Final Complete Urine Clean Catch 50-100,000 CFU/ML MIXED ESEQUIEL... Abdomen: Non-distended, Non-tender Narrative Exam incision c/d/i A/P Assessment and Plan 71yo female with IAA after reduction of intussusception, doing well. continue ABX, drain, likely infected hematoma will ask bariatrics to see f/u culture, ask ID to see on Thursday Israel Stauffer MD October 12, 2016 13:04
[2016-10-12 16:00] VITALS: BP 129/68; PULSE 75; RESP 20; TEMP 97.7; O2SAT 98
[2016-10-12 20:00] VITALS: BP 130/77; PULSE 86; RESP 20; TEMP 97.6; O2SAT 100
[2016-10-13] VITALS: BP 132/75; PULSE 82; RESP 20; TEMP 98.2; O2SAT 98
[2016-10-13] MEDS: ACETAMINOPHEN/HYDROcodone 325 MG/5 MG TAB PO PRN ×4 (00:50→16:39)
[2016-10-13] MEDS: PIPERACIL-TAZO 3.375 GM PREMIX 50 ML IV SCH ×2 (00:51→08:42)
[2016-10-13] MEDS: SODIUM CHLOR 0.9% 1000 ML INJ 1,000 ML IV SCH ×2 (05:05→23:20)
[2016-10-13] MEDS: metroNIDAZOLE 500 MG INJ 100 ML IV SCH ×2 (05:14→12:26)
[2016-10-13] MEDS: LEVOTHYROXINE SODIUM 100 MCG TAB PO SCH (05:15)
[2016-10-13 08:00] VITALS: BP 138/70; PULSE 68; RESP 16; TEMP 96; O2SAT 99
[2016-10-13] MEDS: SODIUM CHLORIDE 0.9% 10 ML VIAL IRRIGATION SCH (08:42)
[2016-10-13] MEDS: SODIUM CHLORIDE 0.9% FLUSH 10 ML FLUSH IV FLUSH SCH ×2 (08:42→20:41)
[2016-10-13] MEDS: TOPIRAMATE 25 MG TAB PO SCH ×2 (08:42→20:41)
[2016-10-13] MEDS: DEXTROAMPHETAMINE/AMPHETAMINE XR 20 MG CAP PO SCH (08:42)
[2016-10-13] MEDS: buPROPion HCL 100 MG SUSTAINED RELEASE TAB PO SCH ×2 (08:42→20:41)
[2016-10-13] MEDS: DULoxetine HCl DR 60 MG CAP PO SCH (08:42)
[2016-10-13] MEDS: LOSARTAN 25 MG TAB PO SCH (08:42)
[2016-10-13] MEDS: PREGABALIN 100 MG CAP PO SCH ×2 (08:42→20:40)
--- NOTE | 2016-10-13 10:50 | PD.ID.CON ---
History of Present Illness Service ID Consult Requested By Dr Calderon Reason for Consult IAA Primary Care Physician Francisco Beltran MD Diagnoses: History of Present Illness 71 yo female with remote gastric bypass underwent open reduction of intersusseption on 09/[address] Richards Pt followed up with Dr. Stauffer October [address] scan in [place] October 08 which showed no abscess She presented 2 days ago with c/o worsening abdominal pain. She presented with significant leukocytosis of 21 K and fever of 101.4 CT from 10/11 showed an abscess arising the right lower quadrant tracking superiorly and anteriorly communicating with the skin where patient had previous incision from previous surgery Pt was started on zosyn and flagyl and she was seen by Dr Calderon who recommended CT guided drainage Pt underwent CT guided drainage with 200 cc of purulent fluid removed The clx growing satrr S E.coli she co that tender red area around her drain is gettig lasrger " spreding to the back" she also co maliase, poor appetite and abd pain No BM Review of Systems Constitutional: COMPLAINS OF: Diaphoretic episodes, Fatigue, Weight loss, Change in appetite Gastrointestinal: COMPLAINS OF: Abdominal pain, Constipation, Nausea, Anorexia Except as stated in HPI: all other systems reviewed are Neg Past Family Social History Allergies: Coded Allergies: No Known Allergies (Verified , 07/17/15) Past Medical History fibromyalgia depresision Past Surgical History gastric bypass 1999 intussuption sp sx by Dr Castelan 2009 revision in March,, followed by open Active Ordered Medications Medications where reviewed in EMR Antibiotics Include: zosyn flagyl Family History Non-Contributory. Social History No Tobacco. No ETOH. No Illicit Drugs. Physical Exam Vital Signs Vital Signs Date Time Temp Pulse Resp B/P Pulse Ox O2 Delivery O2 Flow Rate FiO2 10/13/16 08:00 96.0 68 16 138/70 99 10/13/16 00:00 98.2 82 20 132/75 98 10/12/16 20:00 97.6 86 20 130/77 100 10/12/16 16:00 97.7 75 20 129/68 98 10/12/16 12:00 97.2 77 22 128/76 99 Physical Exam CONSTITUTIONAL/GENERAL: This is a thin poorly nourished patient, in no apparent distress. TUBES/LINES/DRAINS: SKIN: No jaundice, rashes, or lesions. Skin temperature appropriate. Not diaphoretic. HEAD: Atraumatic. Normocephalic. EYES: Pupils equal and round and reactive. Extraocular motions intact. No scleral icterus. No injection or drainage. Fundi not examined. ENT: Hearing grossly normal. Nose without bleeding or purulent drainage. Oral mucosae without visible erythema, exudates, masses, or lesions. NECK: Trachea midline. Supple, nontender. CARDIOVASCULAR: Regular rate and rhythm without murmurs, gallops, or rubs. No JVD. Peripheral pulses symmetric. RESPIRATORY/CHEST: Symmetric, unlabored respirations. Clear to auscultation. Breath sounds equal bilaterally. No wheezes, rales, or rhonchi. GASTROINTESTINAL: Abdomen soft, + tender LLQ, minimallly distended. drain i place LLQ with brown thick purulent drainage The re is a large area of erythema, induration and tenderness arounf the drain spreading to the back No hepato-splenomegaly, or palpable masses. No guarding. Bowel sounds present. GENITOURINARY: Without palpable bladder distension. MUSCULOSKELETAL: Extremities without clubbing, cyanosis, or edema. No joint tenderness or effusion noted. No calf tenderness. No mottling or clubbing. LYMPHATICS: No palpable cervical or supraclavicular adenopathy. NEUROLOGICAL: Awake and alert. Motor and sensory grossly within normal limits. Follows commands. Normal speech . Moves all extremities. PSYCHIATRIC: No obvious anxiety/depression. no apparent hallucinations or other psychotic thought process. Laboratory Date/Time Procedure Status Source Growth 10/11/16 18:42 Gram Stain - Final Complete Wound Abdomen 10/11/16 18:42 Wound Culture - Final Complete Escherichia Coli 10/11/16 09:05 Aerobic Blood Culture - Preliminary Resulted Blood Peripheral NO GROWTH IN 1 DAY 10/11/16 09:05 Anaerobic Blood Culture - Preliminary Resulted Blood Peripheral NO GROWTH IN 1 DAY 10/11/16 08:25 Urine Culture - Final Complete Urine Clean Catch 50-100,000 CFU/ML MIXED ESEQUIEL... Result Diagram: 10/12/16 0448 10/12/16 0448 Imaging Last Impressions Abdomen/Pelvis CT 10/11/16 0820 Signed Impressions: Service Date/Time: Tuesday, October 11, 2016 09:31 - CONCLUSION: 1. There is an abscess arising the right lower quadrant tracking superiorly and anteriorly communicating with the skin where patient had previous incision from previous surgery. This is amenable to percutaneous CT-guided drainage placement. 2. Nonobstructing right-sided renal calculi. 3. Gastric bypass. Lars Bishop MD Assessment and Plan Assessment and Plan Intraabdominal abscess, E.coli - CT with air/enchanceent in abd wall sp recent surgery for intusseption Abdominal wall cellulitis related to the infection Multile intraabdominal surgeries dc current abd - Unasyn - anticipate transion to po abx - monitor the area of cellulitis and consider to repeat CT if worse or non resolving quickly will quirino hart call placed Aydee Mai MD October 13, 2016 10:50
--- NOTE | 2016-10-13 11:13 | RADRPT ---
EXAM DATE/TIME: 10/11/2016 16:43 [facility] COMPARISON: CT ABDOMEN & PELVIS W CONTRAST, October 11, 2016, 9:31. INDICATIONS : Abscess. SEDATION TIME: 45 minutes MEDICATION(S): 1.) 2 mg midazolam (Versed) IV 2.) 150 mcg fentanyl (Sublimaze) IV DEVICE(S): 1.) 18 gauge Alcantara blunt needle 2.) Locking pigtail 14 Fr FLUID: Total volume of 200 cc of purulent foul-smelling fluid was removed. Fluid was sent for laboratory ordered studies. MEDICAL HISTORY : Renal calculi. Gastroesophageal reflux disease. SURGICAL HISTORY : section. ENCOUNTER: Initial ACUITY: 1 day PAIN SCORE: 7/10 LOCATION: Bilateral lower quadrant PROCEDURE: 1.) Conscious sedation with continuous EKG and oximetry monitoring. 2.) EKG and oximetry remained stable throughout the procedure. PROCEDURE : 1. CT guided drainage of the right-sided abdominal abscess 2. Conscious sedation with continuous EKG and oximetry monitoring. The risks, benefits and alternatives to the procedure were explained and verbal and written consent w as obtained. Using automated exposure control and adjustment of the mA and/or kV according to patient size, radiation dose was kept as low as reasonably achievable to obtain optimal diagnostic quality i mages. The site was prepped in sterile fashion. Full sterile technique was used, including cap, ma sk, sterile gloves and gown and a large sterile sheet. Hand hygiene and 2% chlorhexidine and/or beta dine/alcohol prep was utilized per protocol for cutaneous antisepsis. The skin and subcutaneous tiss ues were infiltrated with local anesthetic solution. Using CT guidance the prescribed site was localized. Drainage was performed using the prescribed cat heter The patient tolerated the procedure well and there were no complications. Conscious sedation was per formed with the prescribed dosages and duration as above in the presence of an independent trained ra diology nurse to assist in the monitoring of the patient. EKG and oximetry remained stable throughou t the procedure. The patient tolerated the procedure well and there were no complications. The patient was sent to pos t anesthesia recovery in stable condition. CONCLUSION: Uncomplicated CT guided drainage. Tim Green MD on October 13, 2016 at 11:07 Board Certified Radiologist. This report was verified electronically.
--- NOTE | 2016-10-13 11:16 | HHI.PR ---
Subjective Remarks Follow-up abdominal abscess 10/12/16-patient seen and examined, she is status post CT-guided aspiration of abdominal abscess, denies any significant abdominal pain. Spiking fevers. by the bedside. 10/13/16-patient seen and examined, complains of right-sided masslike pain, afebrile Objective Vitals Vital Signs Date Time Temp Pulse Resp B/P Pulse Ox O2 Delivery O2 Flow Rate FiO2 10/13/16 08:00 96.0 68 16 138/70 99 10/13/16 00:00 98.2 82 20 132/75 98 10/12/16 20:00 97.6 86 20 130/77 100 10/12/16 16:00 97.7 75 20 129/68 98 10/12/16 12:00 97.2 77 22 128/76 99 I/O 10/12/16 10/12/16 10/12/16 10/13/16 10/13/16 10/13/16 07:00 15:00 23:00 07:00 15:00 23:00 Intake Total 1224 ml 1469 ml 1852 ml 520 ml Output Total 75 ml 625 ml Balance 1149 ml 1469 ml 1852 ml -105 ml Intake Oral 480 ml 840 ml 440 ml 220 ml IV Total 744 ml 629 ml 1412 ml 300 ml Output Urine Total 550 ml Drainage Total 75 ml Estimated Blood Loss 75 ml # Voids 5 5 3 # Bowel Movements 0 0 0 Result Diagram: 10/12/1644710/12/16447 Objective Remarks GENERAL: NAD SKIN: Warm and dry. HEAD: Normocephalic. EYES: No scleral icterus. No injection or drainage. NECK: Supple, trachea midline. No JVD or lymphadenopathy. CARDIOVASCULAR: Regular rate and rhythm without murmurs, gallops, or rubs. RESPIRATORY: Breath sounds equal bilaterally. No accessory muscle use. GASTROINTESTINAL: Abdomen soft, tender, nondistended. Right sided masslike with improving erythema . Drain in place MUSCULOSKELETAL: No cyanosis, or edema. BACK: Nontender without obvious deformity. No CVA tenderness. A/P Problem List: (1) Abdominal abscess ICD Code: K65.1 Status: Acute (2) Sepsis ICD Code: A41.9 Status: Acute (3) Infection of hematoma of wound ICD Code: T14.8 Status: Acute Assessment and Plan 71-year-old female with Sepsis: Heart rate over 90, WBC > 83294, < 4000 or > 10% bands; Infect source susp/known (abdominal abscess); s/p Zosyn IV x1 in ED, continue Flagyl 500mg IV Q8H and continue with Zosyn IV Q8H pending culture Abdominal abscess Infected hematoma-Escherichia coli Febrile episodes CT abdomen/pelvics finding of There is an abscess arising the right lower quadrant tracking superiorly and anteriorly communicating with the skin where patient had previous incision from previous surgery. Status post CT-guided drainage of abscess 10/11/16 and monitor drain output Currently on Zosyn and Flagyl 500 mg IV every 8H with culture Escherichia coli positive Appreciate input from Gen. surgery Infectious disease patient has been consulted Pain management accordingly, IV fluid hydration DVT prophylaxis: Bilateral SCDs Lars Galaviz MD October 13, 2016 11:16
[2016-10-13 12:00] VITALS: BP 127/84; PULSE 84; RESP 15; TEMP 97.7; O2SAT 92
[2016-10-13] MEDS ORDERED: AMPICILLIN-SULBACTAM INJ 3 GM VIAL IM SCH (13:15)
[2016-10-13] MEDS: AMPICILLIN/SULBAC 3 GM/NS 100 ML IV SCH ×4 (13:41→20:43)
--- NOTE | 2016-10-13 15:04 | HHI.PR ---
Subjective Subjective Notes Resting in bed at bedside Request Boost supplement drink Objective Vitals/I&O Vital Signs Date Time Temp Pulse Resp B/P Pulse Ox O2 Delivery O2 Flow Rate FiO2 10/13/16 12:00 97.7 84 15 127/84 92 10/11/16 18:44 Room Air 10/11/16 18:00 2 Labs Date/Time Procedure Status Source Growth 10/11/16 18:42 Gram Stain - Final Complete Wound Abdomen 10/11/16 18:42 Wound Culture - Final Complete Escherichia Coli 10/11/16 09:05 Aerobic Blood Culture - Preliminary Resulted Blood Peripheral NO GROWTH IN 2 DAYS 10/11/16 09:05 Anaerobic Blood Culture - Preliminary Resulted Blood Peripheral NO GROWTH IN 2 DAYS 10/11/16 08:25 Urine Culture - Final Complete Urine Clean Catch 50-100,000 CFU/ML MIXED ESEQUIEL... Cardiovascular: Regular Lungs: Clear Abdomen: Other (healed midline incision; accodrian drain with thick purulent fluid in collection bag ) Extremities: No edema A/P Assessment and Plan 71 year old female s/p drainage of intra-abdominal abscess -Cultures show E.Coli -Consult to ID -Regular diet + Ensure -OOB and mobilize -Pain control Attending Statement The exam, history, and the medical decision-making described in the above note were completed with the assistance of the mid-level provider. I reviewed and agree with the findings presented. I attest that I had a [id number] encounter with the patient on the same day, and personally performed and documented my assessment and findings in the medical record. Abdominal exam stable, minimal tenderness on exam, no rebound tenderness or peritonitis, continue ABX per ID, likely infected hematoma from previous exlap, will follow Elaine Mahoney October 13, 2016 15:04 Israel Stauffer MD October 28, 2016 16:51
[2016-10-13 16:00] VITALS: BP 144/68; PULSE 69; RESP 16; TEMP 96.5; O2SAT 100
[2016-10-13 20:00] VITALS: BP 173/98; PULSE 82; RESP 20; TEMP 97.6; O2SAT 97
[2016-10-13] MEDS: ACETAMINOPHEN/HYDROcodone 325 MG/7.5 MG TAB PO PRN (20:41)
[2016-10-13] MEDS: ALPRAZolam 0.25 MG TAB PO PRN (20:41)
[2016-10-14] VITALS: BP 161/79; PULSE 78; RESP 20; TEMP 98; O2SAT 97
[2016-10-14] MEDS: AMPICILLIN/SULBAC 3 GM/NS 100 ML IV SCH ×8 (01:38→20:07)
[2016-10-14] MEDS: ACETAMINOPHEN/HYDROcodone 325 MG/7.5 MG TAB PO PRN ×2 (03:54→07:56)
[2016-10-14] MEDS: LEVOTHYROXINE SODIUM 100 MCG TAB PO SCH (05:47)
[2016-10-14] MEDS: DULoxetine HCl DR 60 MG CAP PO SCH (07:55)
[2016-10-14] MEDS: buPROPion HCL 100 MG SUSTAINED RELEASE TAB PO SCH ×2 (07:55→20:06)
[2016-10-14] MEDS: PREGABALIN 100 MG CAP PO SCH ×2 (07:55→20:06)
[2016-10-14] MEDS: TOPIRAMATE 25 MG TAB PO SCH ×2 (07:55→20:06)
[2016-10-14] MEDS: LOSARTAN 25 MG TAB PO SCH (07:56)
[2016-10-14] MEDS: SODIUM CHLORIDE 0.9% FLUSH 10 ML FLUSH IV FLUSH SCH ×2 (07:56→20:09)
[2016-10-14] MEDS: SODIUM CHLORIDE 0.9% 10 ML VIAL IRRIGATION SCH (07:56)
[2016-10-14] MEDS: DEXTROAMPHETAMINE/AMPHETAMINE XR 20 MG CAP PO SCH (07:56)
[2016-10-14] MEDS: SODIUM CHLOR 0.9% 1000 ML INJ 1,000 ML IV SCH (07:57)
[2016-10-14 08:00] VITALS: BP 156/78; PULSE 69; RESP 17; TEMP 96.8; O2SAT 100
--- NOTE | 2016-10-14 10:07 | HHI.PR ---
Subjective Remarks Follow-up abdominal abscess 10/12/16-patient seen and examined, she is status post CT-guided aspiration of abdominal abscess, denies any significant abdominal pain. Spiking fevers. by the bedside. 10/13/16-patient seen and examined, complains of right-sided masslike pain, afebrile 10/14/16-patient seen and examined, denies any significant right lower quadrant and side pain. Afebrile and currently on Unasyn Objective Vitals Vital Signs Date Time Temp Pulse Resp B/P Pulse Ox O2 Delivery O2 Flow Rate FiO2 10/14/16 08:00 96.8 69 17 156/78 100 10/14/16 00:00 98.0 78 20 161/79 97 10/13/16 20:00 97.6 82 20 173/98 97 10/13/16 16:00 96.5 69 16 144/68 100 10/13/16 12:00 97.7 84 15 127/84 92 I/O 10/13/16 10/13/16 10/13/16 10/14/16 10/14/16 10/14/16 07:00 15:00 23:00 07:00 15:00 23:00 Intake Total 520 ml 1137 ml 1357 ml 852 ml Output Total 625 ml 35 ml 575 ml 510 ml Balance -105 ml 1102 ml 782 ml 342 ml Intake Oral 220 ml 480 ml 720 ml 240 ml IV Total 300 ml 657 ml 637 ml 612 ml Output Urine Total 550 ml 550 ml 500 ml Drainage Total 35 ml 25 ml 10 ml Estimated Blood Loss 75 ml # Voids 3 # Bowel Movements 0 0 0 Result Diagram: 10/12/16 0448 10/12/16 0448 Objective Remarks GENERAL: NAD SKIN: Warm and dry. HEAD: Normocephalic. EYES: No scleral icterus. No injection or drainage. NECK: Supple, trachea midline. No JVD or lymphadenopathy. CARDIOVASCULAR: Regular rate and rhythm without murmurs, gallops, or rubs. RESPIRATORY: Breath sounds equal bilaterally. No accessory muscle use. GASTROINTESTINAL: Abdomen soft, tender, nondistended. Improving Right sided masslike with improving erythema . Drain in place MUSCULOSKELETAL: No cyanosis, or edema. BACK: Nontender without obvious deformity. No CVA tenderness. A/P Problem List: (1) Abdominal abscess ICD Code: K65.1 Status: Acute (2) Sepsis ICD Code: A41.9 Status: Acute (3) Infection of hematoma of wound ICD Code: T14.8 Status: Acute Assessment and Plan 71-year-old female with Sepsis: Resolved Abdominal abscess Infected hematoma-Escherichia coli Febrile episodes CT abdomen/pelvics finding of There is an abscess arising the right lower quadrant tracking superiorly and anteriorly communicating with the skin where patient had previous incision from previous surgery. Status post CT-guided drainage of abscess 10/11/16 and monitor drain output Currently on Unasyn with culture Escherichia coli positive Appreciate input from Gen. surgery Infectious disease following Pain management accordingly,d/c IV fluid hydration Plan for repeat CT abdomen/pelvics today 10/14/16 DVT prophylaxis: Bilateral SCDs Lars Galaviz MD October 14, 2016 10:07
--- NOTE | 2016-10-14 11:14 | HHI.PR ---
Addendum to Inpatient Note Additional Information case was dw Dr Stauffer will get a fu CT with IV contrast Aydee Mai MD October 14, 2016 11:13
[2016-10-14 12:00] VITALS: BP 157/81; PULSE 77; RESP 18; TEMP 96.7; O2SAT 100
--- NOTE | 2016-10-14 12:13 | HHI.PR ---
Subjective Subjective Notes Seen just prior to leaving for CT scan Objective Vitals/I&O Vital Signs Date Time Temp Pulse Resp B/P Pulse Ox O2 Delivery O2 Flow Rate FiO2 10/14/16 08:00 96.8 69 17 156/78 100 10/11/16 18:44 Room Air 10/11/16 18:00 2 Labs Date/Time Procedure Status Source Growth 10/11/16 18:42 Gram Stain - Final Complete Wound Abdomen 10/11/16 18:42 Wound Culture - Final Complete Escherichia Coli 10/11/16 09:05 Aerobic Blood Culture - Preliminary Resulted Blood Peripheral NO GROWTH IN 3 DAYS 10/11/16 09:05 Anaerobic Blood Culture - Preliminary Resulted Blood Peripheral NO GROWTH IN 3 DAYS 10/11/16 08:25 Urine Culture - Final Complete Urine Clean Catch 50-100,000 CFU/ML MIXED ESEQUIEL... Cardiovascular: Regular Lungs: Clear Abdomen: Other (drain in place; redness decreased; tender around drain site otherwise soft; midline incision healing ) Extremities: No edema A/P Assessment and Plan 71 year old female s/p drainage of intra-abdominal abscess -CT abd/pelvis today to eval abscess -Cultures show E.Coli -Ampicillin IV -Regular diet + Boost -OOB and mobilize -Pain control Attending Statement The exam, history, and the medical decision-making described in the above note were completed with the assistance of the mid-level provider. I reviewed and agree with the findings presented. I attest that I had a [id number] encounter with the patient on the same day, and personally performed and documented my assessment and findings in the medical record. Abdominal exam stable, tenderness on exam, no rebound tenderness or peritonitis , improving overall Elaine Mahoney October 14, 2016 12:13 Israel Stauffer MD October 28, 2016 16:55
[2016-10-14] MEDS ORDERED: IOHEXOL 350 MG/ML 10 ML VIAL (for RAD DIAG) IV ONE ×2 (12:19→12:51)
--- NOTE | 2016-10-14 12:37 | RADRPT ---
EXAM DATE/TIME: 10/14/2016 12:15 [place] COMPARISON: CT ABDOMEN & PELVIS W CONTRAST, October 11, 2016, 9:31. INDICATIONS : Evaluate abdominal abscess. IV CONTRAST: 71 cc Omnipaque 350 (iohexol) IV ORAL CONTRAST: No oral contrast ingested. RADIATION DOSE: 4.57 CTDIvol (mGy) MEDICAL HISTORY : Hypertension. Renal calculi. Abdominal abscess,intussusception SURGICAL HISTORY : Gastric bypass. intussusception repair ENCOUNTER: Initial ACUITY: 3 days PAIN SCALE: 4/10 LOCATION: Bilateral abdominal TECHNIQUE: Volumetric scanning of the abdomen and pelvis was performed. Using automated exposure control and ad justment of the mA and/or kV according to patient size, radiation dose was kept as low as reasonably achievable to obtain optimal diagnostic quality images. FINDINGS: Examination of the lung bases demonstrates no abnormality. No pleural fluid is identified. No pulmona ry nodules are present. A drain is present in the right upper quadrant and the previously seen absces s has resolved. The liver and spleen are normal in size and no focal defects are identified. A staple line is present at the gastroesophageal junction. The gallbladder and pancreas are unremarkable. No intrahepatic or extrahepatic ductal dilatation is seen. The adrenal glands and kidneys appear normal bilaterally. No hydronephrosis or mass lesions are identified. Examination of the pelvis demonstrates no evidence of free fluid or pelvic mass. No abnormally enlarg ed inguinal or retroperitoneal lymph nodes are present. The bladder is unremarkable. CONCLUSION: 1. Resolution of the previously seen abdominal abscess Ashkan Parry MD on October 14, 2016 at 12:31 Board Certified Radiologist. This report was verified electronically.
--- NOTE | 2016-10-14 13:02 | HHI.IDPN ---
Subjective Subjective Remarks pt feels better eating no BM + tender spot around the drain CT A/P from today showed resolution of the abscess Antibiotics Unasyn Allergies: Coded Allergies: No Known Allergies (Verified , 07/17/15) Objective . Vital Signs Date Time Temp Pulse Resp B/P Pulse Ox O2 Delivery O2 Flow Rate FiO2 10/14/16 12:00 96.7 77 18 157/81 100 10/14/16 08:00 96.8 69 17 156/78 100 10/14/16 00:00 98.0 78 20 161/79 97 10/13/16 20:00 97.6 82 20 173/98 97 10/13/16 16:00 96.5 69 16 144/68 100 10/13/16 10/13/16 10/14/16 15:00 23:00 07:00 Intake Total 1137 ml 1357 ml 852 ml Output Total 35 ml 575 ml 510 ml Balance 1102 ml 782 ml 342 ml Intake Oral 480 ml 720 ml 240 ml IV Total 657 ml 637 ml 612 ml Output Urine Total 550 ml 500 ml Drainage Total 35 ml 25 ml 10 ml # Voids 3 # Bowel Movements 0 0 . Microbiology Date/Time Procedure Status Source Growth 10/11/16 18:42 Gram Stain - Final Complete Abscess Abdomen 10/11/16 18:42 Wound Culture - Final Complete Escherichia Coli 10/11/16 18:42 Gram Stain - Final Complete Wound Abdomen 10/11/16 18:42 Wound Culture - Final Complete Escherichia Coli Imaging Last Impressions Abdomen/Pelvis CT 10/11/16 0820 Signed Impressions: Service Date/Time: Tuesday, October 11, 2016 09:31 - CONCLUSION: 1. There is an abscess arising the right lower quadrant tracking superiorly and anteriorly communicating with the skin where patient had previous incision from previous surgery. This is amenable to percutaneous CT-guided drainage placement. 2. Nonobstructing right-sided renal calculi. 3. Gastric bypass. Lars Bishop MD Abscess Drainage CT 10/11/16 0000 Signed Impressions: Service Date/Time: Tuesday, October 11, 2016 16:43 - CONCLUSION: Uncomplicated CT guided drainage. Tim Green MD Physical Exam CONSTITUTIONAL/GENERAL: This is a thin poorly nourished patient, in no apparent distress. TUBES/LINES/DRAINS: SKIN: No jaundice, rashes, or lesions. CARDIOVASCULAR: Regular rate and rhythm without murmurs, gallops, or rubs. RESPIRATORY/CHEST: Symmetric, unlabored respirations. Clear to auscultation. GASTROINTESTINAL: Abdomen soft, + tender LLQ, not distended. drain i place LLQ with minimal primarily serosang drainage The previously seen large area of erythema markedly im[proved though induration and exquisit tenderness arounf the drain still persist; no fluctuance No hepato-splenomegaly, or palpable masses. No guarding. Bowel sounds present. GENITOURINARY: Without palpable bladder distension. MUSCULOSKELETAL: Extremities without clubbing, cyanosis, or edema. NEUROLOGICAL: Awake and alert. Non focal Assessment & Plan Remarks Intraabdominal abscess, E.coli - repeat CT with no fluid collection Suspect phlegmone of abdominal wall sp recent surgery for intusseption Abdominal wall cellulitis related to the infection Multile intraabdominal surgeries - cont Unasyn - anticipate transion to po abx - monitor the area of cellulitis for developping abscess and need of I&D dw Aydee Marie MD October 14, 2016 13:02
[2016-10-14 16:00] VITALS: BP 160/88; PULSE 79; RESP 18; TEMP 98.6; O2SAT 100
[2016-10-14 20:00] VITALS: BP 153/74; PULSE 92; RESP 16; TEMP 98; O2SAT 99
[2016-10-14] MEDS: ACETAMINOPHEN/HYDROcodone 325 MG/5 MG TAB PO PRN (20:10)
[2016-10-14] MEDS: ALPRAZolam 0.25 MG TAB PO PRN (23:15)
[2016-10-15] MEDS: AMPICILLIN/SULBAC 3 GM/NS 100 ML IV SCH ×8 (02:11→20:02)
[2016-10-15] MEDS: LEVOTHYROXINE SODIUM 100 MCG TAB PO SCH (05:52)
[2016-10-15 08:00] VITALS: BP 162/77; PULSE 64; RESP 16; TEMP 96.4; O2SAT 97
[2016-10-15] MEDS: SODIUM CHLORIDE 0.9% 10 ML VIAL IRRIGATION SCH (09:00)
[2016-10-15] MEDS: LOSARTAN 25 MG TAB PO SCH (09:05)
[2016-10-15] MEDS: DULoxetine HCl DR 60 MG CAP PO SCH (09:05)
[2016-10-15] MEDS: DEXTROAMPHETAMINE/AMPHETAMINE XR 20 MG CAP PO SCH (09:05)
[2016-10-15] MEDS: buPROPion HCL 100 MG SUSTAINED RELEASE TAB PO SCH ×2 (09:05→20:02)
[2016-10-15] MEDS: TOPIRAMATE 25 MG TAB PO SCH ×2 (09:05→20:02)
[2016-10-15] MEDS: PREGABALIN 100 MG CAP PO SCH ×2 (09:05→20:02)
[2016-10-15] MEDS: SODIUM CHLORIDE 0.9% FLUSH 10 ML FLUSH IV FLUSH SCH ×2 (09:06→20:02)
[2016-10-15] MEDS: ACETAMINOPHEN/HYDROcodone 325 MG/7.5 MG TAB PO PRN ×3 (09:18→20:33)
--- NOTE | 2016-10-15 10:44 | HHI.PR ---
Subjective Remarks Follow-up abdominal abscess 10/12/16-patient seen and examined, she is status post CT-guided aspiration of abdominal abscess, denies any significant abdominal pain. Spiking fevers. by the bedside. 10/13/16-patient seen and examined, complains of right-sided masslike pain, afebrile 10/14/16-patient seen and examined, denies any significant right lower quadrant and side pain. Afebrile and currently on Unasyn 10/15/16-patient seen and examined, denies any abdominal pain. CT abdomen with improved resolution of abdominal abscess Objective Vitals Vital Signs Date Time Temp Pulse Resp B/P Pulse Ox O2 Delivery O2 Flow Rate FiO2 10/15/16 08:00 96.4 64 16 162/77 97 10/14/16 20:00 98.0 92 16 153/74 99 10/14/16 16:00 98.6 79 18 160/88 100 10/14/16 12:00 96.7 77 18 157/81 100 I/O 10/14/16 10/14/16 10/14/16 10/15/16 10/15/16 10/15/16 07:00 15:00 23:00 07:00 15:00 23:00 Intake Total 852 ml 661 ml 221 ml 100 ml Output Total 510 ml 5 ml 1 ml 20 ml Balance 342 ml 656 ml 220 ml 80 ml Intake Oral 240 ml 240 ml 120 ml IV Total 612 ml 421 ml 101 ml 100 ml Output Urine Total 500 ml 1 ml Drainage Total 10 ml 5 ml 0 ml 20 ml # Voids 9 # Bowel Movements 0 0 1 Result Diagram: 10/12/16 0448 10/12/16 0448 Imaging Last Impressions Abdomen/Pelvis CT 10/14/16 0000 Signed Impressions: Service Date/Time: Friday, October 14, 2016 12:15 - CONCLUSION: 1. Resolution of the previously seen abdominal abscess Ashkan Parry MD Abscess Drainage CT 10/11/16 0000 Signed Impressions: Service Date/Time: Tuesday, October 11, 2016 16:43 - CONCLUSION: Uncomplicated CT guided drainage. Tim Green MD Objective Remarks GENERAL: NAD SKIN: Warm and dry. HEAD: Normocephalic. EYES: No scleral icterus. No injection or drainage. NECK: Supple, trachea midline. No JVD or lymphadenopathy. CARDIOVASCULAR: Regular rate and rhythm without murmurs, gallops, or rubs. RESPIRATORY: Breath sounds equal bilaterally. No accessory muscle use. GASTROINTESTINAL: Abdomen soft, tender, nondistended. Drain in place MUSCULOSKELETAL: No cyanosis, or edema. BACK: Nontender without obvious deformity. No CVA tenderness. A/P Problem List: (1) Abdominal abscess ICD Code: K65.1 Status: Acute (2) Sepsis ICD Code: A41.9 Status: Acute (3) Infection of hematoma of wound ICD Code: T14.8 Status: Acute (4) Benign labile hypertension ICD Code: I10 Status: Acute (5) Macrocytic anemia ICD Code: D53.9 Status: Acute Assessment and Plan 71-year-old female with Sepsis: Resolved Abdominal abscess Infected hematoma-Escherichia coli Febrile episodes CT abdomen/pelvics finding of There is an abscess arising the right lower quadrant tracking superiorly and anteriorly communicating with the skin where patient had previous incision from previous surgery. Status post CT-guided drainage of abscess 10/11/16 and monitor drain output Currently on Unasyn with culture Escherichia coli positive Appreciate input from Gen. surgery Infectious disease following Pain management accordingly,s/p IV fluid hydration repeat CT abdomen/pelvics 10/14/16 noted a review by me with Resolution of the previously seen abdominal abscess Macrocytic anemia Stable however will check iron study and treat accordingly Transfuse for hemoglobin less than 7 Repeat H&H in a.m. Labile benign hypertension Give extra 25 mg times one of losartan now Increase losartan to 25 mg by mouth daily DVT prophylaxis: Bilateral SCDs Lars Galaviz MD October 15, 2016 10:44
[2016-10-15] MEDS ORDERED: LOSARTAN 25 MG TAB PO ONE (10:45)
[2016-10-15 12:00] VITALS: BP 138/80; PULSE 68; RESP 14; TEMP 97.4; O2SAT 99
--- NOTE | 2016-10-15 14:52 | HHI.PR ---
Subjective Subjective Notes Resting in bed No issues overnight Pain better today Has been ambulating in the hallway at bedside Objective Vitals/I&O Vital Signs Date Time Temp Pulse Resp B/P Pulse Ox O2 Delivery O2 Flow Rate FiO2 10/15/16 12:00 97.4 68 14 138/80 99 10/11/16 18:44 Room Air 10/11/16 18:00 2 Labs Date/Time Procedure Status Source Growth 10/11/16 18:42 Gram Stain - Final Complete Wound Abdomen 10/11/16 18:42 Wound Culture - Final Complete Escherichia Coli 10/11/16 09:05 Aerobic Blood Culture - Preliminary Resulted Blood Peripheral NO GROWTH IN 4 DAYS 10/11/16 09:05 Anaerobic Blood Culture - Preliminary Resulted Blood Peripheral NO GROWTH IN 4 DAYS 10/11/16 08:25 Urine Culture - Final Complete Urine Clean Catch 50-100,000 CFU/ML MIXED ESEQUIEL... Cardiovascular: Regular Lungs: Clear Abdomen: Other (abdomen soft; tender at drain insertion site---purulent drainage in collectin bag; healed midline incision ) Extremities: No edema A/P Assessment and Plan 71 year old female s/p drainage of intra-abdominal abscess -CT abd/pelvis yesterday to eval abscess shows resolution of abscess -Cultures show E.Coli -Antibiotics per ID -Regular diet + Boost -OOB and mobilize -Pain control Attending Statement The exam, history, and the medical decision-making described in the above note were completed with the assistance of the mid-level provider. I reviewed and agree with the findings presented. I attest that I had a [id number] encounter with the patient on the same day, and personally performed and documented my assessment and findings in the medical record. Abdominal exam stable, no cellulitis, infection clearing up Elaine Mahoney October 15, 2016 14:52 Israel Stauffer MD October 28, 2016 16:56
[2016-10-15 16:00] VITALS: BP 160/71; PULSE 81; RESP 18; TEMP 98.3; O2SAT 95
[2016-10-15] MEDS: ALPRAZolam 0.25 MG TAB PO PRN ×2 (16:16→20:33)
--- NOTE | 2016-10-15 16:55 | HHI.IDPN ---
Subjective Subjective Remarks pt feels better tenderness, pain resolving draining less Antibiotics Unasyn Allergies: Coded Allergies: No Known Allergies (Verified , 07/17/15) Objective . Vital Signs Date Time Temp Pulse Resp B/P Pulse Ox O2 Delivery O2 Flow Rate FiO2 10/15/16 12:00 97.4 68 14 138/80 99 10/15/16 08:00 96.4 64 16 162/77 97 10/14/16 20:00 98.0 92 16 153/74 99 10/14/16 10/14/16 10/15/16 15:00 23:00 07:00 Intake Total 661 ml 221 ml 100 ml Output Total 5 ml 1 ml 20 ml Balance 656 ml 220 ml 80 ml Intake Oral 240 ml 120 ml IV Total 421 ml 101 ml 100 ml Output Urine Total 1 ml Drainage Total 5 ml 0 ml 20 ml # Voids 9 # Bowel Movements 0 1 Imaging Last Impressions Abdomen/Pelvis CT 10/11/16 0820 Signed Impressions: Service Date/Time: Tuesday, October 11, 2016 09:31 - CONCLUSION: 1. There is an abscess arising the right lower quadrant tracking superiorly and anteriorly communicating with the skin where patient had previous incision from previous surgery. This is amenable to percutaneous CT-guided drainage placement. 2. Nonobstructing right-sided renal calculi. 3. Gastric bypass. Lars Bishop MD Abscess Drainage CT 10/11/16 0000 Signed Impressions: Service Date/Time: Tuesday, October 11, 2016 16:43 - CONCLUSION: Uncomplicated CT guided drainage. Tim Green MD Physical Exam CONSTITUTIONAL/GENERAL: This is a thin poorly nourished patient, in no apparent distress. TUBES/LINES/DRAINS: SKIN: No jaundice, rashes, or lesions. CARDIOVASCULAR: Regular rate and rhythm without murmurs, gallops, or rubs. RESPIRATORY/CHEST: Symmetric, unlabored respirations. Clear to auscultation. GASTROINTESTINAL: Abdomen soft, + tender LLQ, not distended. drain i place LLQ with minimal primarily serosang drainage The previously seen large area of erythema completely resolved Are of indurated lump persists, though its less tender no fluctuance drain in place with serosang cloudy dc No hepato-splenomegaly, or palpable masses. No guarding. Bowel sounds present. GENITOURINARY: Without palpable bladder distension. MUSCULOSKELETAL: Extremities without clubbing, cyanosis, or edema. NEUROLOGICAL: Awake and alert. Non focal Assessment & Plan Remarks Intraabdominal abscess, E.coli - repeat CT with no fluid collection Suspect phlegmone of abdominal wall sp recent surgery for intusseption Abdominal wall cellulitis related to the infection - she might develop abdominal abscess in the area next to the drain Multile intraabdominal surgeries - cont Unasyn - - monitor the area of cellulitis for developping abscess and need of I&D; ? utrasound to re-evauate the area call placed to Aydee Marie MD October 15, 2016 16:55
[2016-10-15 20:00] VITALS: BP 138/77; PULSE 72; RESP 16; TEMP 98.5; O2SAT 97
[2016-10-15 23:51] VITALS: BP 146/73; PULSE 72; RESP 16; TEMP 97.4; O2SAT 98
[2016-10-16] MEDS: AMPICILLIN/SULBAC 3 GM/NS 100 ML IV SCH ×4 (01:03→08:36)
[2016-10-16] MEDS: LEVOTHYROXINE SODIUM 100 MCG TAB PO SCH (05:02)
[2016-10-16 06:52] LABS: AUTOMATED NEUTROPHIL # 4.1 TH/MM3 (1.8-7.7); BASOPHIL # 0.1 TH/MM3 (0-0.2); BASOPHIL % 0.9 % (0.0-2.0); EOSINOPHIL # 0.4 TH/MM3 (0-0.4); EOSINOPHIL % 5.2 % (0.0-4.0); HEMATOCRIT 26.9 % (35.0-46.0); LYMPH % 31.3 % (9.0-44.0); LYMPHOCYTE # 2.3 TH/MM3 (1.0-4.8); MEAN CELL VOLUME 80.8 FL (80.0-100.0); MEAN CORPUSCULAR HEMOGLOBIN 26.7 PG (27.0-34.0); MONO % 8.4 % (0.0-8.0); NEUT % 54.2 % (16.0-70.0); PLATELET COUNT 465 TH/MM3 (150-450); RED BLOOD COUNT 3.34 MIL/MM3 (4.00-5.30); WHITE BLOOD COUNT 7.5 TH/MM3 (4.0-11.0)
[2016-10-16 06:55] LABS: HEMO FLAGS AUTO DIFF
[2016-10-16 07:17] LABS: ANION GAP 9 MEQ/L (5-15); BICARBONATE 25.9 MEQ/L (21.0-32.0); BLOOD UREA NITROGEN 5 MG/DL (7-18); CHLORIDE 109 MEQ/L (98-107); GLOMERULAR FILTRATION RATE 112 ML/MIN (>89); POTASSIUM 3.1 MEQ/L (3.5-5.1); SODIUM (NA) 144 MEQ/L (136-145); TRANSFERRIN IRON PROFILE 122 MG/DL (200-360)
[2016-10-16] MEDS ORDERED: POTASSIUM CHLORIDE 20 MEQ CONTROLLED RELEASE TAB PO ONE (07:30)
[2016-10-16 08:00] VITALS: BP_SYST 148; BP_SYST 154; BP_DIAS 64; BP_DIAS 67; PULSE 63; PULSE 64; RESP 14; RESP 16; TEMP 97.4; TEMP 98.1; O2SAT 98
[2016-10-16] MEDS: DEXTROAMPHETAMINE/AMPHETAMINE XR 20 MG CAP PO SCH (08:35)
[2016-10-16] MEDS: SODIUM CHLORIDE 0.9% 10 ML VIAL IRRIGATION SCH (08:36)
[2016-10-16] MEDS: PREGABALIN 100 MG CAP PO SCH ×2 (08:36→19:59)
[2016-10-16] MEDS: TOPIRAMATE 25 MG TAB PO SCH ×2 (08:36→19:59)
[2016-10-16] MEDS: buPROPion HCL 100 MG SUSTAINED RELEASE TAB PO SCH ×2 (08:36→19:59)
[2016-10-16] MEDS: LOSARTAN 25 MG TAB PO SCH (08:36)
[2016-10-16] MEDS: DULoxetine HCl DR 60 MG CAP PO SCH (08:36)
[2016-10-16] MEDS: SODIUM CHLORIDE 0.9% FLUSH 10 ML FLUSH IV FLUSH SCH ×2 (08:37→20:01)
[2016-10-16 08:51] LABS: BANDS 2 % (0-6); BASOPHILS 1 % (0-2); EOSINOPHILS 7 % (0-4); METAMYELOCYTES 1 % (0-1); NEUTROPHIL # MANUAL DIFF 4.5 TH/MM3 (1.8-7.7); POLYS (SEG NEUTROPHILS) 57 % (16-70); WBC DIFF SAMPLE 100
[2016-10-16 08:52] LABS: KERATOCYTES OCC (NORMAL); PLATELET ESTIMATE SMEAR HIGH (NORMAL); PLATELET MORPHOLOGY NORMAL (NORMAL); SCAN/DIFF FINAL DIFF MANUAL
[2016-10-16 12:00] VITALS: BP 148/64; PULSE 64; RESP 16; TEMP 98.1; O2SAT 98
[2016-10-16] MEDS: ACETAMINOPHEN/HYDROcodone 325 MG/7.5 MG TAB PO PRN ×2 (12:16→19:59)
--- NOTE | 2016-10-16 12:54 | HHI.PR ---
Subjective Remarks Follow-up abdominal abscess 10/12/16-patient seen and examined, she is status post CT-guided aspiration of abdominal abscess, denies any significant abdominal pain. Spiking fevers. by the bedside. 10/13/16-patient seen and examined, complains of right-sided masslike pain, afebrile 10/14/16-patient seen and examined, denies any significant right lower quadrant and side pain. Afebrile and currently on Unasyn 10/15/16-patient seen and examined, denies any abdominal pain. CT abdomen with improved resolution of abdominal abscess 10/16/16-patient seen and examined, complains of squeezing however denies any nausea and vomiting. Drain was removed yesterday Objective Vitals Vital Signs Date Time Temp Pulse Resp B/P Pulse Ox O2 Delivery O2 Flow Rate FiO2 10/16/16 12:00 98.1 64 16 148/64 98 10/16/16 08:00 97.4 63 14 154/67 98 10/15/16 23:51 97.4 72 16 146/73 98 10/15/16 20:00 98.5 72 16 138/77 97 10/15/16 16:00 98.3 81 18 160/71 95 I/O 10/15/16 10/15/16 10/15/16 10/16/16 10/16/16 10/16/16 07:00 15:00 23:00 07:00 15:00 23:00 Intake Total 100 ml 1000 ml 380 ml 360 ml Output Total 20 ml 950 ml Balance 80 ml 50 ml 380 ml 360 ml Intake Oral 1000 ml 380 ml 360 ml IV Total 100 ml Output Urine Total 900 ml Drainage Total 20 ml 50 ml # Voids 2 2 # Bowel Movements 0 Result Diagram: 10/16/16 0602 10/16/16 0602 Objective Remarks GENERAL: NAD SKIN: Warm and dry. HEAD: Normocephalic. EYES: No scleral icterus. No injection or drainage. NECK: Supple, trachea midline. No JVD or lymphadenopathy. CARDIOVASCULAR: Regular rate and rhythm without murmurs, gallops, or rubs. RESPIRATORY: Breath sounds equal bilaterally. No accessory muscle use. GASTROINTESTINAL: Abdomen soft, tender, nondistended. MUSCULOSKELETAL: No cyanosis, or edema. BACK: Nontender without obvious deformity. No CVA tenderness. A/P Problem List: (1) Abdominal abscess ICD Code: K65.1 Status: Acute (2) Sepsis ICD Code: A41.9 Status: Acute (3) Infection of hematoma of wound ICD Code: T14.8 Status: Acute (4) Benign labile hypertension ICD Code: I10 Status: Acute (5) Macrocytic anemia ICD Code: D53.9 Status: Acute Assessment and Plan 71-year-old female with Sepsis: Resolved Abdominal abscess Infected hematoma-Escherichia coli Febrile episodes CT abdomen/pelvics finding of There is an abscess arising the right lower quadrant tracking superiorly and anteriorly communicating with the skin where patient had previous incision from previous surgery. Status post CT-guided drainage of abscess 10/11/16 Currently on Unasyn with culture Escherichia coli positive Appreciate input from Gen. surgery Infectious disease following Pain management accordingly,s/p IV fluid hydration Repeat CT abdomen/pelvics 10/14/16 with Resolution of the previously seen abdominal abscess Plan for abdominal ultrasound today 10/16/16 Macrocytic anemia Stable however will check iron study and treat accordingly Transfuse for hemoglobin less than 7 Labile benign hypertension Continue losartan DVT prophylaxis: Bilateral SCDs Lars Galaviz MD October 16, 2016 12:53
--- NOTE | 2016-10-16 13:32 | HHI.PR ---
Subjective Subjective Notes feels better Objective Vitals/I&O Vital Signs Date Time Temp Pulse Resp B/P Pulse Ox O2 Delivery O2 Flow Rate FiO2 10/16/16 12:00 98.1 64 16 148/64 98 Labs Laboratory Tests Test 10/16/16 06:02 White Blood Count 7.5 Red Blood Count 3.34 Hemoglobin 8.9 Hematocrit 26.9 Mean Corpuscular Volume 80.8 Mean Corpuscular Hemoglobin 26.7 Mean Corpuscular Hemoglobin 33.0 Concent Red Cell Distribution Width 18.0 Platelet Count 465 Mean Platelet Volume 8.4 Neutrophils (%) (Auto) 54.2 Lymphocytes (%) (Auto) 31.3 Monocytes (%) (Auto) 8.4 Eosinophils (%) (Auto) 5.2 Basophils (%) (Auto) 0.9 Neutrophils # (Auto) 4.1 Lymphocytes # (Auto) 2.3 Monocytes # (Auto) 0.6 Eosinophils # (Auto) 0.4 Basophils # (Auto) 0.1 CBC Comment AUTO DIFF Differential Total Cells 100 Counted Neutrophils % (Manual) 57 Band Neutrophils % 2 Lymphocytes % 24 Monocytes % 8 Eosinophils % 7 Basophils % 1 Neutrophils # (Manual) 4.5 Metamyelocytes 1 Differential Comment FINAL DIFF MANUAL Platelet Estimate HIGH Platelet Morphology Comment NORMAL Keratocytes OCC Sodium Level 144 Potassium Level 3.1 Chloride Level 109 Carbon Dioxide Level 25.9 Anion Gap 9 Blood Urea Nitrogen 5 Creatinine 0.54 Estimat Glomerular Filtration 112 Rate Random Glucose 95 Calcium Level 8.3 Iron Level 21 Total Iron Binding Capacity 171 Percent Iron Saturation 12.3 Date/Time Procedure Status Source Growth 10/11/16 18:42 Gram Stain - Final Complete Wound Abdomen 10/11/16 18:42 Wound Culture - Final Complete Escherichia Coli Abdomen: Non-distended, Non-tender Narrative Exam drain site c/d/i no fluctuance or cellulitis A/P Assessment and Plan 71yo female with IAA after reduction of intussusception, doing well. infection resolving, ok to DC home today, f/u in 1 week wit me, ABX per ID rec. f/u with [facility] for gastric bypass issues dry gauze of bandaid to drain site bid, ok to shower Israel Stauffer MD October 16, 2016 13:32
--- NOTE | 2016-10-16 14:50 | HHI.IDPN ---
Subjective Subjective Remarks pt co abdominal pain, disconmfort after meal Her RLQ lump is less tender drain was removed afebrile Antibiotics Unasyn Allergies: Coded Allergies: No Known Allergies (Verified , 07/17/15) Objective . Vital Signs Date Time Temp Pulse Resp B/P Pulse Ox O2 Delivery O2 Flow Rate FiO2 10/16/16 12:00 98.1 64 16 148/64 98 10/16/16 08:00 97.4 63 14 154/67 98 10/15/16 23:51 97.4 72 16 146/73 98 10/15/16 20:00 98.5 72 16 138/77 97 10/15/16 16:00 98.3 81 18 160/71 95 10/15/16 10/15/16 10/16/16 15:00 23:00 07:00 Intake Total 1000 ml 380 ml 360 ml Output Total 950 ml Balance 50 ml 380 ml 360 ml Intake Oral 1000 ml 380 ml 360 ml Output Urine Total 900 ml Drainage Total 50 ml # Voids 2 2 # Bowel Movements 0 . Laboratory Tests Test 10/16/16 06:02 White Blood Count 7.5 TH/MM3 Red Blood Count 3.34 MIL/MM3 Hemoglobin 8.9 GM/DL Hematocrit 26.9 % Mean Corpuscular Volume 80.8 FL Mean Corpuscular Hemoglobin 26.7 PG Mean Corpuscular Hemoglobin 33.0 % Concent Red Cell Distribution Width 18.0 % Platelet Count 465 TH/MM3 Mean Platelet Volume 8.4 FL Neutrophils (%) (Auto) 54.2 % Lymphocytes (%) (Auto) 31.3 % Monocytes (%) (Auto) 8.4 % Eosinophils (%) (Auto) 5.2 % Basophils (%) (Auto) 0.9 % Neutrophils # (Auto) 4.1 TH/MM3 Lymphocytes # (Auto) 2.3 TH/MM3 Monocytes # (Auto) 0.6 TH/MM3 Eosinophils # (Auto) 0.4 TH/MM3 Basophils # (Auto) 0.1 TH/MM3 CBC Comment AUTO DIFF Differential Total Cells 100 Counted Neutrophils % (Manual) 57 % Band Neutrophils % 2 % Lymphocytes % 24 % Monocytes % 8 % Eosinophils % 7 % Basophils % 1 % Neutrophils # (Manual) 4.5 TH/MM3 Metamyelocytes 1 % Differential Comment FINAL DIFF MANUAL Platelet Estimate HIGH Platelet Morphology Comment NORMAL Keratocytes OCC Laboratory Tests Test 10/16/16 06:02 Sodium Level 144 MEQ/L Potassium Level 3.1 MEQ/L Chloride Level 109 MEQ/L Carbon Dioxide Level 25.9 MEQ/L Anion Gap 9 MEQ/L Blood Urea Nitrogen 5 MG/DL Creatinine 0.54 MG/DL Estimat Glomerular Filtration 112 ML/MIN Rate Random Glucose 95 MG/DL Calcium Level 8.3 MG/DL Iron Level 21 MCG/DL Total Iron Binding Capacity 171 MCG/DL Percent Iron Saturation 12.3 % Imaging Last Last Impressions Abdomen/Pelvis CT 10/14/16 0000 Signed Impressions: Service Date/Time: Friday, October 14, 2016 12:15 - CONCLUSION: 1. Resolution of the previously seen abdominal abscess Ashkan Parry MD Abscess Drainage CT 10/11/16 0000 Signed Impressions: Service Date/Time: Tuesday, October 11, 2016 16:43 - CONCLUSION: Uncomplicated CT guided drainage. Tim Green MD Physical Exam CONSTITUTIONAL/GENERAL: This is a thin poorly nourished patient, in no apparent distress. SKIN: No jaundice, rashes, or lesions. RESPIRATORY/CHEST: unlabored respirations. GASTROINTESTINAL: Abdomen soft, mildly diffusely tender to deep palpation, mildly distended. previous drain site with minimal serous drainage No erythema LLQ indurated lump is much smaller insize, softer and not tender there is no fluctuance No hepato-splenomegaly, or palpable masses. No guarding. Bowel sounds present and quite ac tive GENITOURINARY: Without palpable bladder distension. MUSCULOSKELETAL: Extremities without clubbing, cyanosis, or edema. NEUROLOGICAL: Awake and alert. Non focal Assessment & Plan Remarks Intraabdominal abscess, E.coli - repeat CT with no fluid collection Suspect phlegmone of abdominal wall sp recent surgery for intusseption Abdominal wall cellulitis related to the infection - no e/o abdominal wall abscess in the area next to the drain - area of concern is improving Multile intraabdominal surgeries Clinically apparent intermittent intussusception, Leukocytosis - resolved - change Unasyn to augmentin 875 mg bid x 7 days - fu with Dr Stauffer -cont to monitor the area of induration untill complete resolutions OK to dc home from ID perspective dw Aydee Marie MD October 16, 2016 14:50
[2016-10-16 16:00] VITALS: BP 164/74; PULSE 69; RESP 14; TEMP 95.6; O2SAT 99
[2016-10-16] MEDS ORDERED: AUGM875T PO (17:11)
[2016-10-16] MEDS: AMOXICILLIN/CLAVULANATE K 875 MG TAB PO SCH (18:11)
[2016-10-16] MEDS: ALPRAZolam 0.25 MG TAB PO PRN (19:59)
[2016-10-16 20:00] VITALS: BP 142/69; PULSE 79; RESP 16; TEMP 96.5; O2SAT 98
[2016-10-16 23:49] VITALS: BP 132/65; PULSE 63; RESP 18; TEMP 97.8; O2SAT 97
[2016-10-17] MEDS: LEVOTHYROXINE SODIUM 100 MCG TAB PO SCH (06:02)
[2016-10-17] MEDS: AMOXICILLIN/CLAVULANATE K 875 MG TAB PO SCH (06:02)
[2016-10-17 08:00] VITALS: BP 132/69; PULSE 67; RESP 20; TEMP 98.1; O2SAT 99
[2016-10-17] MEDS: SODIUM CHLORIDE 0.9% 10 ML VIAL IRRIGATION SCH (09:00)
[2016-10-17] MEDS: buPROPion HCL 100 MG SUSTAINED RELEASE TAB PO SCH (09:40)
[2016-10-17] MEDS: DEXTROAMPHETAMINE/AMPHETAMINE XR 20 MG CAP PO SCH (09:40)
[2016-10-17] MEDS: LOSARTAN 25 MG TAB PO SCH (09:40)
[2016-10-17] MEDS: TOPIRAMATE 25 MG TAB PO SCH (09:40)
[2016-10-17] MEDS: SODIUM CHLORIDE 0.9% FLUSH 10 ML FLUSH IV FLUSH SCH (09:40)
[2016-10-17] MEDS: PREGABALIN 100 MG CAP PO SCH (09:40)
[2016-10-17] MEDS: DULoxetine HCl DR 60 MG CAP PO SCH (09:40)
--- NOTE | 2016-10-17 11:37 | HHI.PR ---
Subjective Remarks Follow-up abdominal abscess 10/12/16-patient seen and examined, she is status post CT-guided aspiration of abdominal abscess, denies any significant abdominal pain. Spiking fevers. by the bedside. 10/13/16-patient seen and examined, complains of right-sided masslike pain, afebrile 10/14/16-patient seen and examined, denies any significant right lower quadrant and side pain. Afebrile and currently on Unasyn 10/15/16-patient seen and examined, denies any abdominal pain. CT abdomen with improved resolution of abdominal abscess 10/16/16-patient seen and examined, complains of squeezing however denies any nausea and vomiting. Drain was removed yesterday 10/17/16-patient seen and examined; no abdominal pain and afebrile. Ready for discharge Objective Vitals Vital Signs Date Time Temp Pulse Resp B/P Pulse Ox O2 Delivery O2 Flow Rate FiO2 10/17/16 08:00 98.1 67 20 132/69 99 10/16/16 23:49 97.8 63 18 132/65 97 10/16/16 20:00 96.5 79 16 142/69 98 10/16/16 16:00 95.6 69 14 164/74 99 10/16/16 12:00 98.1 64 16 148/64 98 I/O 10/16/16 10/16/16 10/16/16 10/17/16 10/17/16 10/17/16 07:00 15:00 23:00 07:00 15:00 23:00 Intake Total 360 ml 1000 ml 480 ml 380 ml Output Total 800 ml Balance 360 ml 200 ml 480 ml 380 ml Intake Oral 360 ml 1000 ml 480 ml 380 ml IV Total 0 ml Output Urine Total 800 ml # Voids 2 2 2 # Bowel Movements 0 Result Diagram: 10/16/16 0602 10/16/16 0602 Imaging Last Impressions Abdomen/Pelvis CT 10/14/16 0000 Signed Impressions: Service Date/Time: Friday, October 14, 2016 12:15 - CONCLUSION: 1. Resolution of the previously seen abdominal abscess Ashkan Parry MD Abscess Drainage CT 10/11/16 0000 Signed Impressions: Service Date/Time: Tuesday, October 11, 2016 16:43 - CONCLUSION: Uncomplicated CT guided drainage. Tim Green MD Objective Remarks GENERAL: NAD SKIN: Warm and dry. HEAD: Normocephalic. EYES: No scleral icterus. No injection or drainage. NECK: Supple, trachea midline. No JVD or lymphadenopathy. CARDIOVASCULAR: Regular rate and rhythm without murmurs, gallops, or rubs. RESPIRATORY: Breath sounds equal bilaterally. No accessory muscle use. GASTROINTESTINAL: Abdomen soft,non tender, nondistended. MUSCULOSKELETAL: No cyanosis, or edema. BACK: Nontender without obvious deformity. No CVA tenderness. Procedures CT guided drainage of abscess A/P Problem List: (1) Abdominal abscess ICD Code: K65.1 Status: Acute (2) Sepsis ICD Code: A41.9 Status: Acute (3) Infection of hematoma of wound ICD Code: T14.8 Status: Acute (4) Benign labile hypertension ICD Code: I10 Status: Acute (5) Macrocytic anemia ICD Code: D53.9 Status: Acute Assessment and Plan 71-year-old female with Sepsis: Resolved Abdominal abscess Infected hematoma-Escherichia coli Febrile episodes CT abdomen/pelvics finding of There is an abscess arising the right lower quadrant tracking superiorly and anteriorly communicating with the skin where patient had previous incision from previous surgery. Status post CT-guided drainage of abscess 10/11/16 Currently on Unasyn with culture Escherichia coli positive and will discharge on PO Augmentin Appreciate input from Gen. surgery Infectious disease following Pain management accordingly,s/p IV fluid hydration Repeat CT abdomen/pelvics 10/14/16 with Resolution of the previously seen abdominal abscess Macrocytic anemia Transfuse for hemoglobin less than 7 Labile benign hypertension Continue losartan DVT prophylaxis: Bilateral SCDs Lars Galaviz MD October 17, 2016 11:37
--- NOTE | 2016-10-17 12:00 | HHI.DS ---
Discharge Summary Admission Date October 11, 2016 at 10:59 Discharge Date: October 17, 2016 Admitting Diagnosis Abdominal abscess (1) Abdominal abscess ICD Code: K65.1 Diagnosis: Principal (2) Sepsis ICD Code: A41.9 Diagnosis: Principal (3) Infection of hematoma of wound ICD Code: T14.8 (4) Benign labile hypertension ICD Code: I10 (5) Macrocytic anemia ICD Code: D53.[address] guided drainage of abscess Brief History - From Admission 71 year-old female was had a few abdominal surgeries complicated by intussusception for which she has been seen by Dr. Stauffer who had Performed lap and reduction of intussusception on 09/16/16; presented to the ED today for evaluation of worsening abdominal pain rated 10/10 in intensity with radiation without any associated nausea and vomiting or febrile episode. Patient was seen recently by general surgery on 10/06/[address] abdomen was ordered which was performed on 10/08/16 and review by without any evidence of abscess at a time. Current CT abdomen/pelvis revealed abscess and patient has elevated WBC. She denies any GI bleed CBC/BMP: 10/16/16 0602 10/16/16 0602 Significant Findings Laboratory Tests Test 10/16/16 06:02 Red Blood Count 3.34 MIL/MM3 (4.00-5.30) Hemoglobin 8.9 GM/DL (11.6-15.3) Hematocrit 26.9 % (35.0-46.0) Mean Corpuscular Hemoglobin 26.7 PG (27.0-34.0) Red Cell Distribution Width 18.0 % (11.6-17.2) Platelet Count 465 TH/MM3 (150-450) Monocytes (%) (Auto) 8.4 % (0.0-8.0) Eosinophils (%) (Auto) 5.2 % (0.0-4.0) Eosinophils % 7 % (0-4) Platelet Estimate HIGH (NORMAL) Keratocytes OCC (NORMAL) Potassium Level 3.1 MEQ/L (3.5-5.1) Chloride Level 109 MEQ/L (98-107) Blood Urea Nitrogen 5 MG/DL (7-18) Calcium Level 8.3 MG/DL (8.5-10.1) Iron Level 21 MCG/DL (50-170) Total Iron Binding Capacity 171 MCG/DL (250-450) Percent Iron Saturation 12.3 % (20-50) Imaging Last Impressions Abdomen/Pelvis CT 10/14/16 0000 Signed Impressions: Service Date/Time: Friday, October 14, 2016 12:15 - CONCLUSION: 1. Resolution of the previously seen abdominal abscess Ashkan Parry MD Abscess Drainage CT 10/11/16 0000 Signed Impressions: Service Date/Time: Tuesday, October 11, 2016 16:43 - CONCLUSION: Uncomplicated CT guided drainage. Tim Green MD PE at Discharge GENERAL: NAD SKIN: Warm and dry. HEAD: Normocephalic. EYES: No scleral icterus. No injection or drainage. NECK: Supple, trachea midline. No JVD or lymphadenopathy. CARDIOVASCULAR: Regular rate and rhythm without murmurs, gallops, or rubs. RESPIRATORY: Breath sounds equal bilaterally. No accessory muscle use. GASTROINTESTINAL: Abdomen soft,non tender, nondistended. MUSCULOSKELETAL: No cyanosis, or edema. BACK: Nontender without obvious deformity. No CVA tenderness. Hospital Course Patient admitted secondary to sepsis due to abdominal abscess for which Gen. surgery was consulted. She was started on IV antibiotics with monitoring of cultures by infectious disease specialist was consulted. Patient underwent CT- guided drainage of abdominal abscess by interventional radiology and the drain was placed. Repeat CT abdomen revealed resolution of abdominal abscess for which the drain was removed and patient prior to discharge was subsequently switched to by mouth antibiotic. She was continued on all medication for other chronic medical conditions. All electrolyte abnormalities were corrected accordingly. DVT and GI prophylaxis were provided. Prior to discharge, patient 's condition improved and vitals remained stable. Patient will be discharged home on Augmentin 875mg twice a day 7 days total Pt Condition on Discharge: Stable Discharge Disposition: Discharge Home Discharge Time: > 30 minutes Discharge Instructions DIET: Follow Instructions for: Heart Healthy Diet Activities you can perform: Regular-No Restrictions Follow up Referrals: PCP Follow-up - 1 Week Surgical New Medications: Amoxicillin-Clavulanate (Augmentin) 875-125 mg Tab 875 MG PO BID not for use in CrCl <30 ml/min. Infection Days 7 Ref 0 TAB Continued Medications: Alprazolam (Xanax) 0.25 Mg Tab 0.25 MG PO Q4H PRN ANXIETY Ref 0 TAB Amphetamine-Dextroamphetamine ER 24 HR (Adderall Xr 24 HR) 20 Mg Cap 20 MG PO DAILY Once daily in the morning. Hyperactivity Control #30 Ref 0 CAP Bupropion HCl ER 12 HR (Wellbutrin SR 12 HR) 100 Mg Tab 100 MG PO Q12HR Control Depression Ref [address] (Cymbalta DR) 60 Mg Capdr 60 MG PO DAILY #30 Ref 0 CAP Hydrocodone-Acetaminophen (Lortab) 5-325 Mg Tab 1 TAB PO Q6H PRN PAIN Ref 0 TAB Levothyroxine (Synthroid) 100 Mcg Tab 100 MCG PO DAILY Thyroid #30 Ref 0 TAB Losartan (Losartan) 25 Mg Tab 12.5 MG PO DAILY Blood Pressure Management #15 Ref 0 TAB Pregabalin (Lyrica) 100 Mg Cap 100 MG PO BID #60 Ref 0 CAP Topiramate (Topamax) 50 Mg Tab 50 MG PO BID Control Seizures #60 Ref 0 TAB Additional Information Over 30 minutes spent for the discharge of the patient Lars Galaviz MD October 17, 2016 12:00
== END 2016-10-17 11:41 | disposition home or self-care (01) | DRG 871 ==
LOC: NEPE 07:57 → NEDA 10:59 → N07A 12:47
PROVIDERS: ADMIT Hospitalist; ATTEND Hospitalist
PROC: 0W9J30Z Drainage of Pelvic Cavity with Drainage Device, Percutaneous Approach (ICD-10-PCS; principal; 2016-10-13)
DX: A41.9 Sepsis, unspecified organism (principal); K65.1 Peritoneal abscess; L03.311 Cellulitis of abdominal wall; I10 Essential (primary) hypertension; D53.9 Nutritional anemia, unspecified; K21.9 Gastro-esophageal reflux disease without esophagitis; M79.7 Fibromyalgia; N20.0 Calculus of kidney; Z98.84 Bariatric surgery status
CPT/HCPCS: 74177; 75989; 80048; 80053; 81001; 83540; 83550; 83605; 83690; 85007; 85025; 85027; 85610; 85730; 87040; 87070; 87077; 87086; 87186; 87205; 96365; 96375; 96376; C1729; C1769; J0295; J2060; J2250; J2270; J2543; J3010; J7030; Q9967

== ENCOUNTER 2016-11-12 17:52 | Inpatient (IN) | payer MEDICARE, BC ==
[~2016-11-12] VITALS: Ht 167.6 cm; Wt 52.3 kg
[2016-11-12] VITALS (7 sets, daily range): BP systolic 110–133; BP diastolic 59–77; PULSE 58–76; RESP 14–18; TEMP 95.1–98; O2SAT 96–100
[~2016-11-12 17:52] MED LIST changes: +AUGM875T PO; +HYDR-3533 PO
[2016-11-12] MEDS ORDERED: SODIUM CHLOR 0.9% 1000 ML INJ 1,000 ML IV SCH (17:57)
[2016-11-12] MEDS ORDERED: SODIUM CHLORIDE 0.9% FLUSH 5 ML FLUSH IV FLUSH PRN (18:00)
[2016-11-12 18:20] LABS: AUTOMATED NEUTROPHIL # 2.2 TH/MM3 (1.8-7.7); EOSINOPHIL # 0.2 TH/MM3 (0-0.4); EOSINOPHIL % 5.8 % (0.0-4.0); HEMATOCRIT 28.8 % (35.0-46.0); HEMO FLAGS DIFF FINAL; LYMPH % 32.2 % (9.0-44.0); LYMPHOCYTE # 1.3 TH/MM3 (1.0-4.8); MEAN CELL VOLUME 84.8 FL (80.0-100.0); MEAN CORPUSCULAR HEMOGLOBIN 26.3 PG (27.0-34.0); MONO % 8.5 % (0.0-8.0); NEUT % 52.5 % (16.0-70.0); PLATELET COUNT 171 TH/MM3 (150-450); RED CELL DISTRIBUTION WIDTH 19.6 % (11.6-17.2); WHITE BLOOD COUNT 4.1 TH/MM3 (4.0-11.0)
[2016-11-12] MEDS: DEXTROSE 5% IN WATE 1000ML INJ 1,000 ML IV SCH (18:30)
--- NOTE | 2016-11-12 18:32 | PD ---
HPI Chief Complaint: Altered Mental Status Time Seen by Provider: 17:57 Travel History International Travel<30 days: No Contact w/Intl Traveler<30days: No Traveled to known affect area: No History of Present Illness HPI The patient is a 71-year-old female who presents to the emergency department via EMS from [place], [place] for altered mental status and hypoglycemia. According to EMS the patient was last seen normal at 2 PM, the came in and saw the patient upstairs lying on the floor at approximately 4 PM when he called EMS. EMS states the patient's down time was approximately 40 minutes. There report, her initial glucose was 32. The patient was given D 25 blood glucose and the blood glucose came up to greater than 200. Upon arrival the patient's blood glucose was down lower than 150. The patient was arousable, fell asleep easily, was a poor historian. However, she does note a recent history of intussusception with secondary abscess and subsequent surgery. The patient denies any history of diabetes and denies taking any insulin or diabetic medications. The patient denies any illicit drug use or alcohol use. However, the patient was somewhat lethargic and a poor historian. PFSH Past Medical History ADD: Yes Arthritis: No Asthma: No Blood Disorders: No Anxiety: Yes Depression: Yes Cancer: No Cardiovascular Problems: No Cerebrovascular Accident: No Diabetes: No Diminished Hearing: No Endocrine: Yes Fibromyalgia: Yes GERD: Yes Glaucoma: No Headaches: Yes Immune Disorder: No Kidney Stones: Yes Musculoskeletal: Yes (RIGHT ROTATOR CUFF REPAIR) Psychiatric: Yes (ADD) Reproductive: No Respiratory: No Migraines: Yes Thyroid Disease: Yes Ulcer: No PNEUMOCCOCAL Vaccine (Year): 1 Menopausal: Yes Past Surgical History Abdominal Surgery: Yes (intestinal repair August) Gynecologic Surgery: Yes ( SECTION) Other Surgery: Yes (GASTRIC BYPASS) Social History Alcohol Use: No Tobacco Use: No Substance Use: No Allergies-Medications (Allergen,Severity, Reaction): Coded Allergies: No Known Allergies (Verified , 11/12/16) Reported Meds & Prescriptions Reported Meds & Active Scripts Active Reported Tegretol-Xr 12 HR (Carbamazepine) 100 Mg Tab 100 Mg PO Q12HR Wellbutrin SR 12 HR (Bupropion HCl) 150 Mg Tab 75 Mg PO BID Adderall (Amphetamine-Dextroamphetamine) 20 Mg Tab 20 Mg PO BID Avoid late evening doses. Space doses at least 4 to 6 hours if more than once/day dosing. Lortab (Hydrocodone-Acetaminophen) 5-325 Mg Tab 1 Tab PO Q6H PRN Topamax (Topiramate) 50 Mg Tab 50 Mg PO BID Synthroid (Levothyroxine Sodium) 100 Mcg Tab 100 Mcg PO DAILY Lyrica (Pregabalin) 100 Mg Cap 100 Mg PO TID Losartan (Losartan Potassium) 25 Mg Tab 12.5 Mg PO DAILY Cymbalta DR (Duloxetine HCl) 60 Mg Capdr 60 Mg PO BID Xanax (Alprazolam) 0.25 Mg Tab 0.25 Mg PO Q4H PRN Review of Systems ROS Limitations: Clinical Condition, Altered Mental Status Except as stated in HPI: all other systems reviewed are Neg General / Constitutional: No: Fever HENT: Positive: Headaches Cardiovascular: No: Chest Pain or Discomfort Respiratory: No: Shortness of Breath Gastrointestinal: Positive: Abdominal Pain, No: Nausea, Vomiting Genitourinary: No: Dysuria Neurologic: Positive: Change in Mentation, No: Dizziness Endocrine: Positive: Other (history of hypoglycemia) Physical Exam Narrative GENERAL: Lethargic 71-year-old female who appears her stated age and is in no acute respiratory distress. SKIN: Focused skin assessment warm/dry. HEAD: Atraumatic. Normocephalic. EYES: Pupils equal and round. 3 mm bilateral and reactive. ENT: No nasal bleeding or discharge. Mucous membranes pink and moist. NECK: Trachea midline. No JVD. CARDIOVASCULAR: Regular rate and rhythm. No murmur appreciated. Heart rate in the 60s. RESPIRATORY: No accessory muscle use. Clear to auscultation. Breath sounds equal bilaterally. GASTROINTESTINAL: Abdomen soft, tenderness noted in the right lower quadrant and minimal tenderness in the left lower quadrant. Surgical scar noted. MUSCULOSKELETAL: No obvious deformities. No clubbing. No cyanosis. No edema. Back: No CVA tenderness. NEUROLOGICAL: Lethargic, arouses to painful stimuli and verbal stimuli, but falls asleep easily. Moves all 4 extremities. Oriented to name and place. PSYCHIATRIC: Lethargic, unable to assess. Data Data Last Documented VS Vital Signs Date Time Temp Pulse Resp B/P Pulse Ox O2 Delivery O2 Flow Rate FiO2 11/12/16 19:45 96.4 76 18 122/65 96 Room Air 11/12/16 17:50 21 Orders Electrocardiogram (11/12/16 17:57) Complete Blood Count With Diff (11/12/16 17:57) Comprehensive Metabolic Panel (11/12/16 17:57) Creatine Kinase (Cpk) (11/12/16 17:57) Prothrombin Time / Inr (Pt) (11/12/16 17:57) Act Partial Throm Time (Ptt) (11/12/16 17:57) Thyroid Stimulating Hormone (11/12/16 17:57) Urinalysis - C+S If Indicated (11/12/16 17:57) Lactic Acid Sepsis Protocol (11/12/16 17:57) Blood Culture (11/12/16 17:57) Chest, Single Ap (11/12/16 17:57) Ct Brain W/O Iv Contrast(Rout) (11/12/16 17:57) Blood Glucose (11/12/16 17:57) Ecg Monitoring (11/12/16 17:57) Iv Access Insert/Monitor (11/12/16 17:57) Oximetry (11/12/16 17:57) Sodium Chloride 0.9% Flush (Ns Flush) (11/12/16 18:00) Sodium Chlor 0.9% 1000 Ml Inj (Ns 1000 M (11/12/16 17:57) Ct Abd/Pel W Iv Contrast(Rout) (11/12/16 ) Carbamazepine (Tegretol) (11/12/16 17:57) Dextrose 5% In Wate 1000ml Inj (D5w 1000 (11/12/16 18:30) Piperacil-Tazo 3.375 Gm Premix (Zosyn 3. (11/12/16 19:30) Iohexol 350 Inj (Omnipaque 350 Inj) (11/12/16 19:51) Carbamazepine (Tegretol) (11/12/16 20:15) Consult General Surgery (11/12/16 ) Admit Order (Ed Use Only) (11/12/16 20:29) Admit To Inpatient (11/12/16 ) Vital Signs (Adult) Q4H (11/12/16 20:29) Activity Oob With Assistance (11/12/16 20:29) Gravel Hauler / Telemetry .CONTINUOUS (11/12/16 20:29) Sodium Chloride 0.9% Flush (Ns Flush) (11/12/16 20:30) Sodium Chloride 0.9% Flush (Ns Flush) (11/12/16 21:00) Basic Metabolic Panel (Bmp) (11/13/16 06:00) Complete Blood Count With Diff (11/13/16 06:00) Pt Request For Service (11/12/16 20:29) Case Management Consult (11/12/16 20:29) Naloxone Inj (Narcan Inj) (11/12/16 20:30) Docusate Sodium-Senna (Yola-Colace) (11/12/16 21:00) Magnesium Hydroxide Liq (Milk Of Magnesi (11/12/16 20:30) Sennosides (Senokot) (11/12/16 20:30) Bisacodyl Supp (Dulcolax Supp) (11/12/16 20:30) Lactulose Liq (Lactulose Liq) (11/12/16 20:30) Inpatient Certification (11/12/16 ) Labs Laboratory Tests Test 11/12/16 18:00 White Blood Count 4.1 TH/MM3 Red Blood Count 3.40 MIL/MM3 Hemoglobin 8.9 GM/DL Hematocrit 28.8 % Mean Corpuscular Volume 84.8 FL Mean Corpuscular Hemoglobin 26.3 PG Mean Corpuscular Hemoglobin 31.0 % Concent Red Cell Distribution Width 19.6 % Platelet Count 171 TH/MM3 Mean Platelet Volume 9.9 FL Neutrophils (%) (Auto) 52.5 % Lymphocytes (%) (Auto) 32.2 % Monocytes (%) (Auto) 8.5 % Eosinophils (%) (Auto) 5.8 % Basophils (%) (Auto) 1.0 % Neutrophils # (Auto) 2.2 TH/MM3 Lymphocytes # (Auto) 1.3 TH/MM3 Monocytes # (Auto) 0.4 TH/MM3 Eosinophils # (Auto) 0.2 TH/MM3 Basophils # (Auto) 0.0 TH/MM3 CBC Comment DIFF FINAL Differential Comment Prothrombin Time 10.8 SEC Prothromb Time International 1.0 RATIO Ratio Activated Partial 23.0 SEC Thromboplast Time Sodium Level 142 MEQ/L Potassium Level 3.5 MEQ/L Chloride Level 112 MEQ/L Carbon Dioxide Level 23.9 MEQ/L Anion Gap 6 MEQ/L Blood Urea Nitrogen 12 MG/DL Creatinine 0.60 MG/DL Estimat Glomerular Filtration 99 ML/MIN Rate Random Glucose 84 MG/DL Lactic Acid Level 1.3 mmol/L Calcium Level 8.0 MG/DL Total Bilirubin 0.3 MG/DL Aspartate Amino Transf 12 U/L (AST/SGOT) Alanine Aminotransferase 19 U/L (ALT/SGPT) Alkaline Phosphatase 76 U/L Total Creatine Kinase 56 U/L Total Protein 5.6 GM/DL Albumin 3.1 GM/DL Thyroid Stimulating Hormone 1.630 uIU/ML 3rd Gen Carbamazepine (Tegretol) Level 2.7 MCG/ML [facility] Medical Decision Making Medical Screen Exam Complete: Yes Emergency Medical Condition: Yes Medical Record Reviewed: Yes Interpretation(s) Chest x-ray reveals no acute cardiopulmonary disease. EKG reveals normal sinus rhythm with sinus arrhythmia. Differential Diagnosis Differential diagnosis includes hypothermia, hypoglycemia, drug ingestion, sepsis, abdominal abscess, medication side effect, endocrinology disorder, adrenal insufficiency, electrolyte abnormality. Narrative Course IV was established, labs are drawn and sent, and the patient was placed on cardiac telemetry monitoring and continuous pulse oximetry monitoring. Patient had Accu-Chek every 30 minutes, her blood sugar went from the 200s to the mid 100s down to the 70s, therefore, the patient was placed on D5W to 100 mL's per hour. I reviewed her medications, she is not on any diabetic medications are none medications to cause hypoglycemia. The patient was noted to be hypothermic and was placed on a warmer with warm fluids. Blood culture and lactic acid were sent to lab. CT of the brain and abdomen/pelvis were ordered. The patient was signed out at 7 PM, will need admission to the intensive care unit. Diagnosis Primary Impression: Hypoglycemia Additional Impression: Hypothermia Qualified Code: T68.XXXA - Hypothermia, initial encounter Admitting Information Admitting Physician Requests: Admit Condition: Stable Peter Martini MD Nov 12, 2016 18:32
[2016-11-12 18:33] LABS: PROTHROMBIN TIME - PATIENT 10.8 SEC (9.8-11.6)
--- NOTE | 2016-11-12 18:37 | RADRPT ---
EXAM DATE/TIME: 11/12/2016 18:12 [facility] COMPARISON: CHEST SINGLE AP, September 16, 2016, 23:38. INDICATIONS : Syncopal episode today MEDICAL HISTORY : Hypertension. SURGICAL HISTORY : None. ENCOUNTER: Initial ACUITY: 1 day PAIN SCORE: Non-responsive. LOCATION: Bilateral chest FINDINGS: A single view of the chest demonstrates the lungs to be symmetrically aerated without evidence of mas s, infiltrate or effusion. The cardiomediastinal contours are unremarkable. Osseous structures are intact. CONCLUSION: No evidence of acute cardiopulmonary disease. Rene Alan MD on November 12, 2016 at 18:34 Board Certified Radiologist. This report was verified electronically.
[2016-11-12] MEDS ORDERED: TEGR100T PO (18:42)
[2016-11-12] MEDS ORDERED: ADDE20 PO (18:42)
[2016-11-12] MEDS ORDERED: BUPR150CR PO (18:42)
[2016-11-12 18:48] LABS: ANION GAP 6 MEQ/L (5-15); AST (GOT) 12 U/L (15-37); BICARBONATE 23.9 MEQ/L (21.0-32.0); BLOOD UREA NITROGEN 12 MG/DL (7-18); CHLORIDE 112 MEQ/L (98-107); GLOMERULAR FILTRATION RATE 99 ML/MIN (>89); POTASSIUM 3.5 MEQ/L (3.5-5.1); SODIUM (NA) 142 MEQ/L (136-145)
[2016-11-12 18:59] LABS: ALKALINE PHOSPHATASE 76 U/L (45-117); ALT (GPT) 19 U/L (10-53); TOTAL BILIRUBIN ADULT 0.3 MG/DL (0.2-1.0)
[2016-11-12 19:00] LABS: CREATINE KINASE 56 U/L (26-192)
[2016-11-12] MEDS ORDERED: PIPERACIL-TAZO 3.375 GM PREMIX 50 ML IV ONE (19:30)
--- NOTE | 2016-11-12 19:45 | RADRPT ---
EXAM DATE/TIME: 11/12/2016 19:19 [facility] COMPARISON: No previous studies available for comparison. INDICATIONS : Found down on bedroom floor. RADIATION DOSE: 56.35 CTDIvol (mGy) MEDICAL HISTORY : Hypertension. Renal calculi. Thyroid disease SURGICAL HISTORY : Gastric bypass. section.Intestinal repair ENCOUNTER: Initial ACUITY: 1 day PAIN SCALE: 8/10 LOCATION: Right cranial TECHNIQUE: Multiple contiguous axial images were obtained of the head. Using automated exposure control and adj ustment of the mA and/or kV according to patient size, radiation dose was kept as low as reasonably a chievable to obtain optimal diagnostic quality images. FINDINGS: CEREBRUM: The ventricles are normal for age. No evidence of midline shift, mass lesion, hemorrhage or acute in farction. No extra-axial fluid collections are seen. POSTERIOR FOSSA: The cerebellum and brainstem are intact. The 4th ventricle is midline. The cerebellopontine angle i s unremarkable. EXTRACRANIAL: The visualized portion of the orbits is intact. SKULL: The calvaria is intact. No evidence of skull fracture. CONCLUSION: Negative noncontrast head CT. Rene Alan MD on November 12, 2016 at 19:42 Board Certified Radiologist. This report was verified electronically.
[2016-11-12] MEDS ORDERED: IOHEXOL 350 MG/ML 10 ML VIAL (for RAD DIAG) IV ONE (19:51)
--- NOTE | 2016-11-12 19:53 | RADRPT ---
EXAM DATE/TIME: 11/12/2016 19:24 This report includes an Addendum and supersedes previous reports for this exam. [facility] COMPARISON: CT ABDOMEN & PELVIS W CONTRAST, October 14, 2016, 12:15. INDICATIONS : Recent history of intussuscepton with abscess,evaluate for abscess. IV CONTRAST: 79 cc Omnipaque 350 (iohexol) IV ORAL CONTRAST: No oral contrast ingested. RADIATION DOSE: 9.96 CTDIvol (mGy) MEDICAL HISTORY : Hypertension. Renal calculi. Thyroid disease SURGICAL HISTORY : Gastric bypass. Intestinal repair ENCOUNTER: Initial ACUITY: 1 day PAIN SCALE: 0/10 LOCATION: Abdomen TECHNIQUE: Volumetric scanning of the abdomen and pelvis was performed. Using automated exposure control and ad justment of the mA and/or kV according to patient size, radiation dose was kept as low as reasonably achievable to obtain optimal diagnostic quality images. FINDINGS: LOWER LUNGS: The visualized lower lungs are clear. LIVER: Homogeneous density without lesion. There is no dilation of the biliary tree. No calcified gallston es. SPLEEN: Normal size without lesion. PANCREAS: Within normal limits. KIDNEYS: Bubbles of 3 mm stones seen of the upper pole the right kidney. ADRENAL GLANDS: Within normal limits. VASCULAR: There is no aortic aneurysm. BOWEL/MESENTERY: Large amount of stool throughout the colon. No perceptible mass or acute inflammatory changes. Previo us gastric bypass. 2.7 cm fluid collection seen just below the left hepatic lobe and medial to the he patic flexure of the colon. There is an adjacent staple line. ABDOMINAL WALL: Within normal limits. RETROPERITONEUM: There is no lymphadenopathy. BLADDER: No wall thickening or mass. REPRODUCTIVE: Within normal limits. INGUINAL: There is no lymphadenopathy or hernia. MUSCULOSKELETAL: Within normal limits for patient age. CONCLUSION: 1. Right upper quadrant drainage catheter has been removed. Adjacent to the left hepatic lobe is a 2. 7 cm fluid collection potentially an abscess. I don't see any other fluid collections. 2. Very large amount of stool in the colon. The urinary bladder is also distended at the time. Rene Alan MD on November 12, 2016 at 19:44 Board Certified Radiologist. This report was verified electronically. ADDENDUM: A review the study with the attending surgeon, Dr. Rader. The previously seen fluid collections in t he anterior abdominal wall of the right mid to upper abdomen have resolved. The 2.7 cm fluid collecti on adjacent to the left hepatic lobe was not in an area of abscess on the prior study and potentially just some prominent fluid within the duodenum. It does appear to be adjacent to an anastomosis, lead burner supervisor arron. Would suggest repeating CT of the abdomen with oral contrast when clinically feasible. Rene Alan MD on November 12, 2016 at 22:33 Board Certified Radiologist. This report was verified electronically.
[2016-11-12] MEDS ORDERED: carBAMazepine 200 MG TAB PO ONE (20:15)
--- NOTE | 2016-11-12 20:18 | PD ---
Data Data Last Documented VS Vital Signs Date Time Temp Pulse Resp B/P Pulse Ox O2 Delivery O2 Flow Rate FiO2 11/12/16 19:45 96.4 76 18 122/65 96 Room Air 11/12/16 17:50 21 Orders Electrocardiogram (11/12/16 17:57) Complete Blood Count With Diff (11/12/16 17:57) Comprehensive Metabolic Panel (11/12/16 17:57) Creatine Kinase (Cpk) (11/12/16 17:57) Prothrombin Time / Inr (Pt) (11/12/16 17:57) Act Partial Throm Time (Ptt) (11/12/16 17:57) Thyroid Stimulating Hormone (11/12/16 17:57) Urinalysis - C+S If Indicated (11/12/16 17:57) Lactic Acid Sepsis Protocol (11/12/16 17:57) Blood Culture (11/12/16 17:57) Chest, Single Ap (11/12/16 17:57) Ct Brain W/O Iv Contrast(Rout) (11/12/16 17:57) Blood Glucose (11/12/16 17:57) Ecg Monitoring (11/12/16 17:57) Iv Access Insert/Monitor (11/12/16 17:57) Oximetry (11/12/16 17:57) Sodium Chloride 0.9% Flush (Ns Flush) (11/12/16 18:00) Sodium Chlor 0.9% 1000 Ml Inj (Ns 1000 M (11/12/16 17:57) Ct Abd/Pel W Iv Contrast(Rout) (11/12/16 ) Carbamazepine (Tegretol) (11/12/16 17:57) Dextrose 5% In Wate 1000ml Inj (D5w 1000 (11/12/16 18:30) Piperacil-Tazo 3.375 Gm Premix (Zosyn 3. (11/12/16 19:30) Iohexol 350 Inj (Omnipaque 350 Inj) (11/12/16 19:51) Carbamazepine (Tegretol) (11/12/16 20:15) Consult General Surgery (11/12/16 ) Admit Order (Ed Use Only) (11/12/16 20:29) Admit To Inpatient (11/12/16 ) Vital Signs (Adult) Q4H (11/12/16 20:29) Activity Oob With Assistance (11/12/16 20:29) Tours Hostess / Telemetry .CONTINUOUS (11/12/16 20:29) Diet 1800 Ada Cons Carb (11/13/16 Breakfast) Diet Heart Healthy (11/13/16 Breakfast) Sodium Chloride 0.9% Flush (Ns Flush) (11/12/16 20:30) Sodium Chloride 0.9% Flush (Ns Flush) (11/12/16 21:00) Basic Metabolic Panel (Bmp) (11/13/16 06:00) Complete Blood Count With Diff (11/13/16 06:00) Pt Request For Service (11/12/16 20:29) Case Management Consult (11/12/16 20:29) Naloxone Inj (Narcan Inj) (11/12/16 20:30) Docusate Sodium-Senna (Yola-Colace) (11/12/16 21:00) Magnesium Hydroxide Liq (Milk Of Magnesi (11/12/16 20:30) Sennosides (Senokot) (11/12/16 20:30) Bisacodyl Supp (Dulcolax Supp) (11/12/16 20:30) Lactulose Liq (Lactulose Liq) (11/12/16 20:30) Inpatient Certification (11/12/16 ) Labs Laboratory Tests Test 11/12/16 18:00 White Blood Count 4.1 TH/MM3 Red Blood Count 3.40 MIL/MM3 Hemoglobin 8.9 GM/DL Hematocrit 28.8 % Mean Corpuscular Volume 84.8 FL Mean Corpuscular Hemoglobin 26.3 PG Mean Corpuscular Hemoglobin 31.0 % Concent Red Cell Distribution Width 19.6 % Platelet Count 171 TH/MM3 Mean Platelet Volume 9.9 FL Neutrophils (%) (Auto) 52.5 % Lymphocytes (%) (Auto) 32.2 % Monocytes (%) (Auto) 8.5 % Eosinophils (%) (Auto) 5.8 % Basophils (%) (Auto) 1.0 % Neutrophils # (Auto) 2.2 TH/MM3 Lymphocytes # (Auto) 1.3 TH/MM3 Monocytes # (Auto) 0.4 TH/MM3 Eosinophils # (Auto) 0.2 TH/MM3 Basophils # (Auto) 0.0 TH/MM3 CBC Comment DIFF FINAL Differential Comment Prothrombin Time 10.8 SEC Prothromb Time International 1.0 RATIO Ratio Activated Partial 23.0 SEC Thromboplast Time Sodium Level 142 MEQ/L Potassium Level 3.5 MEQ/L Chloride Level 112 MEQ/L Carbon Dioxide Level 23.9 MEQ/L Anion Gap 6 MEQ/L Blood Urea Nitrogen 12 MG/DL Creatinine 0.60 MG/DL Estimat Glomerular Filtration 99 ML/MIN Rate Random Glucose 84 MG/DL Lactic Acid Level 1.3 mmol/L Calcium Level 8.0 MG/DL Total Bilirubin 0.3 MG/DL Aspartate Amino Transf 12 U/L (AST/SGOT) Alanine Aminotransferase 19 U/L (ALT/SGPT) Alkaline Phosphatase 76 U/L Total Creatine Kinase 56 U/L Total Protein 5.6 GM/DL Albumin 3.1 GM/DL Thyroid Stimulating Hormone 1.630 uIU/ML 3rd Gen Carbamazepine (Tegretol) Level 2.7 MCG/ML MDM Medical Record Reviewed: Yes Supervised Visit with LEONIDES: No Narrative Course Please refer to Dr Martini's note. At 805PM pt resting comfortably on bed. CBC & BMP Diagram 11/12/16 18:00 TSH 1.63 Carbamazepine 2.7 LFTs essentially normal LA 1.3 INR 1.0 Last [address] 11/12/161756 Signed Impressions: Service Date/Time: Saturday, November 12, 2016 19:19 - CONCLUSION: Negative noncontrast head CT. Rene Alan MD Chest X-Ray 11/12/161756 Signed Impressions: Service Date/Time: Saturday, November 12, 2016 18:12 - CONCLUSION: No evidence of acute cardiopulmonary disease. Rene Alan MD Abdomen/Pelvis CT 11/12/16 0000 Signed Impressions: Service Date/Time: Saturday, November 12, 2016 19:24 - CONCLUSION: 1. Right upper quadrant drainage catheter has been removed. Adjacent to the left hepatic lobe is a 2.7 cm fluid collection potentially an abscess. I don't see any other fluid collections. 2. Very large amount of stool in the colon. The urinary bladder is also distended at the time. Rene Alan MD Zosyn started. D5W started, FSG at 2000 115 with HR 75, BP 122/65; speaking full sentence just prior to discussion with hospitalist service. ICU for warming blanked and q1h FSGs. Tegretol given in ER. D/w Dr Martinez. Sepsis Criteria SIRS Criteria (2 or more): Temp > 100.9 or < 96.8 Diagnosis Primary Impression: Abdominal abscess Additional Impressions: Hypoglycemia Altered mental status Qualified Code: R40.20 - Coma, unspecified coma depth, unspecified coma timing Hypothermia Qualified Code: T68.XXXA - Hypothermia, initial encounter Admitting Information Admitting Physician Requests: Admit Prasanna Barragan MD Nov 12, 2016 20:18
[2016-11-12] MEDS ORDERED: BISACODYL 10 MG SUPP RECTAL PRN (20:30)
[2016-11-12] MEDS ORDERED: SENNOSIDES 8.6 MG TAB PO PRN (20:30)
[2016-11-12] MEDS ORDERED: LACTULOSE SYRUP 20 GM/30 ML CUP PO PRN (20:30)
[2016-11-12] MEDS ORDERED: SODIUM CHLORIDE 0.9% FLUSH 10 ML FLUSH IV FLUSH PRN (20:30)
[2016-11-12] MEDS ORDERED: MAGNESIUM HYDROXIDE SUSP 30 ML CUP PO PRN (20:30)
[2016-11-12] MEDS ORDERED: NALOXONE HCL 0.4 MG/ML AMP IV PRN (20:30)
[2016-11-12] MEDS ORDERED: Vancomycin Consult Pharmacy 1 EA OTHER SCH (20:45)
[2016-11-12] MEDS ORDERED: DEXTROSE 50% IN WATER 50 ML VIAL(D50) IV PRN (20:45)
[2016-11-12] MEDS ORDERED: GLUCAGON 1 MG/ML VIAL IM PRN (20:45)
[2016-11-12] MEDS: DOCUSATE SODIUM 50 MG/SENNA 8.6 MG TAB PO SCH (21:40)
[2016-11-12 21:53] LABS: BLOOD, URINE NEG (NEG); COMMENT (UR) CATH-CULT NOT IND; CULTURE IF INDICATED CATH CULTURE NOT IND; GLUCOSE,URINE NEG (NEG); KETONE, URINE NEG (NEG); NITRITE,URINE NEG (NEG); SQUAMOUS EPITHELIAL CELL URINE <1 /hpf (0-5); URINE COLOR YELLOW (YELLW/STRAW)
[2016-11-12] MEDS ORDERED: VANCOMYCIN INJ 900 MG in SODIUM CHLOR 0.9% 250 ML INJ 250 ML IV SCH (22:00)
--- NOTE | 2016-11-12 23:34 | HHI.HP ---
HPI Service [facility] Primary Care Physician Francisco Beltran MD Admission Diagnosis AMS, Hypoglycemia, Hypothermia, Intraperitoneal Collection Diagnoses: (1) Hypoglycemia Chief Complaint: syncopal episode Travel History International Travel<30 Days: No Contact w/Intl Traveler <30 Da: No Traveled to Known Affected Are: No History of Present Illness The patient states that she was at home and felt sweaty, light-headed and passed out. She was watching TV while lying in bed prior to episode; didn't feel well, walked out of bedroom, yelled for , and passed out - didn't regain full consciousness until here in ER. States blood glucose was low upon EMS arrival "like 30". Denies any history of diabetes. Does not take any medications for hyperglycemia. Denies fever, nausea, vomiting, diarrhea, black or red stool, hematuria, dysuria , decrease in appetite or dietary intake, . Saw Dr. Scherer on and he placed her on Flagyl and submitted a stool sample for culture (reports culture resulted and it was negative). Stools were loose, smelly, and had increased gas passing which was why culture was performed. The patient reports bowel intussusception with open reduction performed by Dr. Stauffer on 09/16/16. She was then admitted October 11 and discharged October 18 after abscess/infection. Fistula repair at [facility] with partial gastrectomy in March 2016 - hospitalized for 7 days. Denies Crohn's disease or ulcerative colitis or cancer. . 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 Past Surgical History 2002 had bariatric surgery in [place], [place] Intussusception repair 2009 and March 2016 Fistula repair at [facility] with partial gastrectomy Lithotripsy x 3 kidney stones . Reported Medications Reported Meds & Active Scripts Active Reported Tegretol-Xr 12 HR (Carbamazepine) 100 Mg Tab 100 Mg PO Q12HR Wellbutrin SR 12 HR (Bupropion HCl) 150 Mg Tab 75 Mg PO BID Adderall (Amphetamine-Dextroamphetamine) 20 Mg Tab 20 Mg PO BID Avoid late evening doses. Space doses at least 4 to 6 hours if more than once/day dosing. Lortab (Hydrocodone-Acetaminophen) 5-325 Mg Tab 1 Tab PO Q6H PRN Topamax (Topiramate) 50 Mg Tab 50 Mg PO BID Synthroid (Levothyroxine Sodium) 100 Mcg Tab 100 Mcg PO DAILY Lyrica (Pregabalin) 100 Mg Cap 100 Mg PO TID Losartan (Losartan Potassium) 25 Mg Tab 12.5 Mg PO DAILY Cymbalta DR (Duloxetine HCl) 60 Mg Capdr 60 Mg PO BID Xanax (Alprazolam) 0.25 Mg Tab 0.25 Mg PO Q4H PRN Allergies: Coded Allergies: No Known Allergies (Verified , 11/12/16) Active Ordered Medications Current Medications IV Flush 2 ml 2 ml UNSCH PRN IV FLUSH FLUSH AFTER USING IV ACCESS Last administered on 11/12/16 18:15; Start 11/12/16 at 18:00; Stop 11/12/16 at 20:33 ; Status DC Sodium Chloride 1,000 ml @ 1,000 mls/hr Q1H IV Last administered on 11/12/16 18:15; Start 11/12/16 at 17:57; Stop 11/12/16 at 18:56; Status DC Dextrose 1,000 ml @ 100 mls/hr Q10H IV Last administered on 11/12/16 18:30; Start 11/12/16 at 18:30 Piperacillin Sod/ Tazobactam Sod (Zosyn 3.375 Gm Premix) 50 ml @ 100 mls/hr ONCE ONCE IV Last administered on 11/12/16 20:24; Start 11/12/16 at 19:30; Stop 11/12/16 at 19:59; Status DC Iohexol (Omnipaque 350 Inj) 79 ml STK-MED ONCE IV ; Start 11/12/16 at 19:51; Stop 11/12/16 at 19:52; Status DC Carbamazepine (TEGretol) 200 mg ONCE ONCE PO Last administered on 11/12/16 20 :52; Start 11/12/16 at 20:15; Stop 11/12/16 at 20:16; Status DC Sodium Chloride (NS Flush) 2 ml UNSCH PRN IV FLUSH FLUSH AFTER USING IV ACCESS ; Start 11/12/16 at 20:30 Sodium Chloride (NS Flush) 2 ml BID IV FLUSH ; Start 11/12/16 at 21:00 Naloxone HCl (Narcan Inj) 0.4 mg UNSCH PRN IV SEE LABEL COMMENTS; Start at 20:30 Senna/Docusate Sodium (Yola-Colace) 1 tab BID PO Last administered on 21:40; Start 11/12/16 at 21:00 Magnesium Hydroxide (Milk Of Magnesia Liq) 30 ml Q12H PRN PO MILD - MODERATE CONSTIPATION; Start 11/12/16 at 20:30 Sennosides (Senokot) 17.2 mg Q12H PRN PO MODERATE - SEVERE CONSTIPATION; Start 11/12/16 at 20:30 Bisacodyl (Dulcolax Supp) 10 mg DAILY PRN RECTAL SEVERE CONSITIPATION; Start at 20:30 Lactulose 30 ml 30 ml DAILY PRN PO SEVERE CONSITIPATION; Start 11/12/16 at 20: 30 Pharmacy Profile Note (Vancomycin Consult Pharmacy) 0 ml @ 0 mls/hr UNSCH OTHER ; Start 11/12/16 at 20:45 Dextrose (D50w (Vial) Inj) 50 ml UNSCH PRN IV HYPOGLYCEMIA-SEE COMMENTS; Start 11/12/16 at 20:45 Glucagon 1 mg 1 mg STAT PRN IM HYPOGLYCEMIA-SEE COMMENTS; Start 11/12/16 at 20: 45 Vancomycin HCl/ Sodium Chloride (Vancomycin Inj/ NS 250 ml Inj) 259 ml @ 250 mls/hr Q12H IV ; Start 11/12/16 at 22:00 Miscellaneous Information SPECIFIC LAB TO BE DRAWN:VANCOMY... ONCE ONCE .XX ; Start 11/14/16 at 09:45; Stop 11/14/16 at 09:46 . Family History Brother with multiple medical problems related to an explosion, has atrial fibrillation Mother is 93 y/o, CVA recently - minor . Social History Tobacco: denies Alcohol: denies Illicit Drugs: denies . Physical Exam Vital Signs Vital Signs Date Time Temp Pulse Resp B/P Pulse Ox O2 Delivery O2 Flow Rate FiO2 11/12/16 19:45 96.4 76 18 122/65 96 Room Air 11/12/16 18:01 100 Room Air 11/12/16 18:00 95.1 11/12/16 17:55 95.1 64 14 127/75 100 11/12/16 17:50 99 21 Physical Exam GENERAL: This is a pleasant female patient, in no apparent distress. SKIN: No rashes, ecchymoses or lesions. Cool and dry. HEAD: Atraumatic. Normocephalic. EYES: No scleral icterus. No injection or drainage. ENT: Nose without bleeding, purulent drainage. NECK: Trachea midline. No JVD or lymphadenopathy. CARDIOVASCULAR: Regular rate and rhythm without murmurs, gallops, or rubs. RESPIRATORY: Clear to auscultation. Breath sounds equal bilaterally. No wheezes , rales, or rhonchi. GASTROINTESTINAL: Abdomen soft, non-tender, nondistended. No guarding. MUSCULOSKELETAL: Extremities without clubbing, cyanosis, or edema. No calf tenderness. NEUROLOGICAL: Awake and alert. Motor and sensory grossly within normal limits. Normal speech. . Laboratory Laboratory Tests Test 11/12/16 11/12/16 18:00 21:30 White Blood Count 4.1 Red Blood Count 3.40 Hemoglobin 8.9 Hematocrit 28.8 Mean Corpuscular Volume 84.8 Mean Corpuscular Hemoglobin 26.3 Mean Corpuscular Hemoglobin 31.0 Concent Red Cell Distribution Width 19.6 Platelet Count 171 Mean Platelet Volume 9.9 Neutrophils (%) (Auto) 52.5 Lymphocytes (%) (Auto) 32.2 Monocytes (%) (Auto) 8.5 Eosinophils (%) (Auto) 5.8 Basophils (%) (Auto) 1.0 Neutrophils # (Auto) 2.2 Lymphocytes # (Auto) 1.3 Monocytes # (Auto) 0.4 Eosinophils # (Auto) 0.2 Basophils # (Auto) 0.0 CBC Comment DIFF FINAL Differential Comment Prothrombin Time 10.8 Prothromb Time International 1.0 Ratio Activated Partial 23.0 Thromboplast Time Sodium Level 142 Potassium Level 3.5 Chloride Level 112 Carbon Dioxide Level 23.9 Anion Gap 6 Blood Urea Nitrogen 12 Creatinine 0.60 Estimat Glomerular Filtration 99 Rate Random Glucose 84 Lactic Acid Level 1.3 Calcium Level 8.0 Total Bilirubin 0.3 Aspartate Amino Transf 12 (AST/SGOT) Alanine Aminotransferase 19 (ALT/SGPT) Alkaline Phosphatase 76 Total Creatine Kinase 56 Total Protein 5.6 Albumin 3.1 Thyroid Stimulating Hormone 1.630 3rd Gen Carbamazepine (Tegretol) Level 2.7 Urine Color YELLOW Urine Turbidity CLEAR Urine pH 5.0 Urine Specific Cleghorn 1.024 Urine Protein NEG Urine Glucose (UA) NEG Urine Ketones NEG Urine Occult Blood NEG Urine Nitrite NEG Urine Bilirubin NEG Urine Urobilinogen LESS THAN 2.0 Urine Leukocyte Esterase NEG Urine RBC 14 Urine WBC 1 Urine Squamous Epithelial <1 Cells Microscopic Urinalysis Comment CATH-CULT NOT IND Date/Time Procedure Status Source Growth 11/12/16 18:30 Aerobic Blood Culture Received Blood Peripheral Pending 11/12/16 18:30 Anaerobic Blood Culture Received Blood Peripheral Pending Result Diagram: 11/12/16 1800 11/12/16 1800 Imaging Last Impressions Head CT 11/12/161756 Signed Impressions: Service Date/Time: Saturday, November 12, 2016 19:19 - CONCLUSION: Negative noncontrast head CT. Rene Alan MD Chest X-Ray 11/12/161756 Signed Impressions: Service Date/Time: Saturday, November 12, 2016 18:12 - CONCLUSION: No evidence of acute cardiopulmonary disease. Rene Alan MD Abdomen/Pelvis CT 11/12/16 0000 Signed Impressions: Service Date/Time: Saturday, November 12, 2016 19:24 - CONCLUSION: 1. Right upper quadrant drainage catheter has been removed. Adjacent to the left hepatic lobe is a 2.7 cm fluid collection potentially an abscess. I don't see any other fluid collections. 2. Very large amount of stool in the colon. The urinary bladder is also distended at the time. Rene Alan MD ADDENDUM: A review the study with the attending surgeon, Dr. Rader. The previously seen fluid collections in the anterior abdominal wall of the right mid to upper abdomen have resolved. The 2.7 cm fluid collection adjacent to the left hepatic lobe was not in an area of abscess on the prior study and potentially just some prominent fluid within the duodenum. It does appear to be adjacent to an anastomosis, chronic. Would suggest repeating CT of the abdomen with oral contrast when clinically feasible. Rene Alan MD . Assessment and Plan Problem List: (1) Hypoglycemia ICD Code: E16.2 Status: Acute Assessment and Plan Hypoglycemia, symptomatic - frequent blood glucose monitoring q3h - hypoglycemia treatment protocol ordered Possible intraabdominal abscess - Abdomen/pelvis CT with IV contrast showed right upper quadrant adjacent to left hepatic lobe with 2.7 fluid collection potentially an abscess. Very large amount of stool in the colon. Distended urinary bladder. Recommendation for repeat CT of abdomen with oral contrast. - Vancomycin IV with pharmacy consult for therapeutic dosing and monitoring - IV Cipro 400 mg q12h and IV Zosyn 4.5 gm q6h - Lactobacillus TID p.o. to maintain normal gastrointestinal dom while on antibiotics - consult general surgery - CT with oral contrast per radiology recommendations DVT prophylaxis - SCDs/TEDs . Discussed Condition With ER physician, patient Physician Certification 2 Midnight Certification Type: Admission for Inpatient Services Order for Inpatient Services The services are ordered in accordance with Medicare regulations or non- Medicare payer requirements, as applicable. In the case of services not specified as inpatient-only, they are appropriately provided as inpatient services in accordance with the 2-midnight benchmark. Estimated LOS (days): 4 days is the estimated time the patient will need to remain in the hospital, assuming treatment plan goals are met and no additional complications. Post-Hospital Plan: Home Rachelle Ambrose Nov 12, 2016 23:34
[2016-11-12] MEDS: SODIUM CHLORIDE 0.9% FLUSH 10 ML FLUSH IV FLUSH SCH (23:38)
[2016-11-13] VITALS (7 sets, daily range): BP systolic 121–161; BP diastolic 6–77; PULSE 57–66; RESP 15–19; TEMP 96.4–98.4; O2SAT 97–100
[2016-11-13] MEDS ORDERED: GLUCAGON 1 MG/ML VIAL OTHER PRN (00:15)
[2016-11-13] MEDS ORDERED: DEXTROSE 50% IN WATER 50 ML VIAL(D50) IV PRN (00:15)
[2016-11-13] MEDS: CIPROFLOXACIN 400 MG PREMIX 200 ML IV SCH ×2 (01:16→15:24)
[2016-11-13] MEDS: PIPERACIL-TAZO 4.5 GM PREMIX 100 ML IV SCH ×4 (03:39→21:15)
[2016-11-13] MEDS ORDERED: DIATRIZOATE MEGLUM/DIATRIZOATE SOD 9 ML CUP PO ONE (06:00)
[2016-11-13] MEDS: SODIUM CHLORIDE 0.9% FLUSH 10 ML FLUSH IV FLUSH SCH ×2 (08:32→21:00)
[2016-11-13] MEDS: DEXTROSE 5% IN WATE 1000ML INJ 1,000 ML IV SCH (08:32)
[2016-11-13] MEDS: DOCUSATE SODIUM 50 MG/SENNA 8.6 MG TAB PO SCH ×2 (08:37→21:17)
[2016-11-13] MEDS: LACTOBACILLUS ACIDOPHILUS 1 GM PACKET PO SCH ×4 (09:00→21:00)
--- NOTE | 2016-11-13 09:43 | MB ---
cc: TUTU PERALTA MD DATE OF CONSULTATION 11/12/2016 REASON FOR CONSULTATION Rule out abscess, concern for 2.7 cm fluid collection. The patient known to service. HISTORY OF PRESENT ILLNESS The patient is a 71-year-old female who presents with a history of gastric bypass and further complicated history of several revisions and intussusception. The patient presented to the emergency department at [place] with altered mental status and hypoglycemia. She was noted seen normal around 2 p.m. She was witnessed by her around 4 p.m. to have a hypoglycemic attack for which the patient was not arousable for several minutes. She had a blood sugar of 32, brought in by EMS, given D25 glucose and improved blood sugar. She was given hydration fluids and continued to improve. She did have further workup including CT head without evidence of abnormality. She had a CT scan showing a questionable 2.7 cm fluid collection intraabdominally. Therefore Surgery was consulted. The patient has a normal white blood cell count, is currently denying fevers and the patient was seen on my exam. The patient states generalized abdominal pain and no rebound or focal tenderness. She does have somewhat of a complex history where she underwent a gastric bypass in 2002 in [place]. She has had two revisions which sounds like for a gastro-gastric fistula in [facility] subsequently. Furthermore, she underwent intussusception decompression in 2009 and then again in 2017 in August. She was complicated by wound infection and abscess for IR drained in 10/11/2016 for which showed the patient improved. She was followed by Infectious Disease and placed initially on antibiotics for which she said she has completed the course several weeks ago. She was also placed on recent p.o. Flagyl for concerns of C-diff. She has taken several doses of this. She does note she found out C-diff culture was negative, however. The patient and at bedside confirm several other hypoglycemic attacks x 3, one of which was approximately two weeks ago and then several weeks prior to that. Further, the patient is noted to be taking her bariatric multivitamins and B12. Initially the patient was 300 pounds, has lost approximately 185 pounds and has had pretty good weight loss and outcome from her gastric bypass. PAST MEDICAL HISTORY 1. Morbid obesity. 2. Hypothyroidism. 3. Depression. 4. Intussusception. PAST SURGICAL HISTORY 1. Gastric bypass in 2002. 2. Laparoscopic revisional surgery for gastro-gastric fistula x 2. 3. . 4. Exploratory laparotomy with repair of intussusception and decompression 09/16/2016, also in 2009. SOCIAL HISTORY The patient denies EtOH or IVDA. Quit smoking last summer. ALLERGIES The patient has no known drug allergies. MEDICATIONS See EMR. FAMILY HISTORY The patient denies diabetes or hypertension. REVIEW OF SYSTEMS A 10-point review of systems is negative otherwise except as above. PHYSICAL EXAMINATION GENERAL: The patient in no acute. VITAL SIGNS: 95.1, pulse 64, respirations 14, blood pressure 127/75. 100%. HEENT: Pupils equal, round, reactive. Dry mucous membranes. NECK: Supple. Trachea midline. LUNGS: Bilateral expansion. Clear. HEART: S1-S2, regular. ABDOMEN: Soft. Positive tenderness to palpation. No rebound. No guarding. Well-healed incisional scars. No evidence of skin infection. EXTREMITIES: Warm, well-perfused. SKIN: No obvious masses or lesions. PSYCH: Good insight, good judgment. History of depression. LABORATORY AND DIAGNOSTIC DATA WBC 4.1, hemoglobin 8.9, hematocrit 28.8, platelets 171. Sodium 143, potassium 3.5, chloride 112, BUN 12, creatinine 0.6, glucose 84 currently. Lactate 1.3, AST 12, ALT 19, alk phos 76, TSH 1.6, albumin 3.1. INR 1, PTT 23. IMAGING STUDIES CT reviewed by myself and in discussion with Dr. Alan, absence of previous IR catheter, questionable 2.7 cm fluid collection, difficult to identify if intraluminal or extraluminal as no p.o. contrast was administered. Subsequent other abdominal wall abscesses have resolved. Does not appear to be any evidence of intussusception. Large fecal load with stool in colon. ASSESSMENT The patient is 71-year-old female history with history of gastric bypass, complex surgical revisions, intussusception x 2, history of abscess status post IR drained. Possible 2.7 cm recurrent intraabdominal abscess, questionable. The patient presents with a hypoglycemic attack. After a full clinical, radiologic and laboratory assessment, the patient with above-named issues including consultation for a questionable fluid collection. At this point I have low suspicion for significant fluid collection. This was questionable on CT scan and no oral contrast was given. Could consider repeat CT scan if further concerns develop with p.o. contrast. The patient has a normal white blood cell count, is not currently complaining of any fever and the previous abscesses appear completely resolved. The patient had a severe bout of hypoglycemia. 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 Further patient complicated bariatric patient with several revisions and is considering reconsultation at [facility] for evaluation of intussusception at the jejunojejunostomy which again is not evident on present CT scan at the moment. Further recommendations including hydration and stool softeners as the patient has significant fecal load and appears to have constipation. We will continue to follow. I will discuss with Dr. Stauffer and the surgical team in the a.m. MD RADHA Wood/MILLI /11:10 PM /9:21 AM
--- NOTE | 2016-11-13 09:52 | RADRPT ---
EXAM DATE/TIME: 11/13/2016 09:11 [place] COMPARISON: CT ABDOMEN & PELVIS W CONTRAST, November 12, 2016, 19:24. CT ABDOMEN & PELVIS W CONTRAST, October 14, 2016, 12:15. CT ASSISTED ABSCESS DRAIN, October 11, 2016, 16:43. INDICATIONS : Follow up CT to r/o abscess ORAL CONTRAST: Prescribed oral contrast ingested. RADIATION DOSE: 4.52 CTDIvol (mGy) MEDICAL HISTORY : Hypertension. SURGICAL HISTORY : section. Gastric bypass. Abscess drainage ENCOUNTER: Subsequent ACUITY: 1 month PAIN SCALE: 1/10 LOCATION: Right upper quadrant TECHNIQUE: Volumetric scanning of the abdomen and pelvis was performed. Using automated exposure control and ad justment of the mA and/or kV according to patient size, radiation dose was kept as low as reasonably achievable to obtain optimal diagnostic quality images. FINDINGS: LOWER LUNGS: The visualized lower lungs are clear. LIVER: Homogeneous density without lesion. There is no dilation of the biliary tree. Gallbladder sludge is noted within the gallbladder. SPLEEN: Normal size without lesion. PANCREAS: Within normal limits. KIDNEYS: Normal in size and shape. There is no mass or hydronephrosis. Tiny calcified nonobstructing upper po le right renal calculi are noted and are stable. ADRENAL GLANDS: Within normal limits. VASCULAR: There is no aortic aneurysm. BOWEL/MESENTERY: The previously noted small fluid collection adjacent to the pancreatic head and anastomotic suture li ne has decreased in overall volume and contains some air but remains nonspecific. Gastric bypass surg petra has been performed. ABDOMINAL WALL: Within normal limits. RETROPERITONEUM: There is no lymphadenopathy. BLADDER: No wall thickening or mass. REPRODUCTIVE: Within normal limits. INGUINAL: There is no lymphadenopathy or hernia. MUSCULOSKELETAL: Within normal limits for patient age. CONCLUSION: 1. Interval decrease in the size of the small fluid collection adjacent to the head of the pancreas a nd an anastomotic suture line. This now measures 2.2 cm in greatest dimension and remains nonspecific . 2. Multiple calcified nonobstructing upper pole right renal calculi. 3. Gallbladder sludge. Kevin Koroma MD on November 13, 2016 at 9:33 Board Certified Radiologist. This report was verified electronically.
[2016-11-13] MEDS ORDERED: MISCELLANEOUS NURSING INFORMATION ONE (10:00)
[2016-11-13 11:20] LABS: AUTOMATED NEUTROPHIL # 2.8 TH/MM3 (1.8-7.7); BASOPHIL % 0.9 % (0.0-2.0); EOSINOPHIL # 0.3 TH/MM3 (0-0.4); HEMATOCRIT 28.4 % (35.0-46.0); HEMO FLAGS DIFF FINAL; LYMPH % 33.7 % (9.0-44.0); LYMPHOCYTE # 1.8 TH/MM3 (1.0-4.8); MEAN CELL VOLUME 83.7 FL (80.0-100.0); MEAN CORPUSCULAR HEMOGLOBIN 26.4 PG (27.0-34.0); MEAN CORPUSCULAR HGB CONC 31.5 % (32.0-36.0); MONO % 6.6 % (0.0-8.0); NEUT % 52.8 % (16.0-70.0); PLATELET COUNT 176 TH/MM3 (150-450); RED BLOOD COUNT 3.39 MIL/MM3 (4.00-5.30); RED CELL DISTRIBUTION WIDTH 19.4 % (11.6-17.2); WHITE BLOOD COUNT 5.3 TH/MM3 (4.0-11.0)
[2016-11-13 11:37] LABS: BICARBONATE 24.1 MEQ/L (21.0-32.0); POTASSIUM 3.8 MEQ/L (3.5-5.1)
[2016-11-13] MEDS: VANCOMYCIN 1,000 MG/NS 250 ML IV SCH ×4 (12:09→21:20)
--- NOTE | 2016-11-13 15:20 | EKG ---
Date Performed: 11/12/2016 Time Performed: 17:59:13 PTAGE: 71 years EKG: Sinus rhythm WITH MARKED SINUS ARRHYTHMIA BORDERLINE ECG Compared to prior tracing no significant change PREVIOUS TRACING : 09/16/2016 19.42 DOCTOR: Unruly Mai Interpretating Date/Time 11/13/2016 15:19:18
--- NOTE | 2016-11-13 17:21 | HHI.PR ---
Subjective Remarks awake and alert denies history of DM history of morbid obesity and udnerwent gastric bypass surgery- history of depression, migraines since surgery- for intusseetpion- rev=covering well, po appetite gradually improving and taking boost for supplement Objective Vitals Vital Signs Date Time Temp Pulse Resp B/P Pulse Ox O2 Delivery O2 Flow Rate FiO2 11/13/16 16:00 97.0 57 16 142/76 100 11/13/16 13:46 60 11/13/16 12:00 98.4 58 15 127/75 98 11/13/16 08:00 96.4 61 15 145/74 99 11/13/16 04:00 98.0 63 19 121/6 97 11/13/16 01:05 59 18 161/75 99 11/12/16 23:39 98.0 58 18 133/77 99 Room Air 11/12/16 20:45 97.9 76 18 110/59 98 Room Air 11/12/16 19:45 96.4 76 18 122/65 96 Room Air 11/12/16 18:01 100 Room Air 11/12/16 18:00 95.1 11/12/16 17:55 95.1 64 14 127/75 100 11/12/16 17:50 99 21 I/O 11/12/16 11/12/16 11/12/16 11/13/16 11/13/16 11/13/16 07:00 15:00 23:00 07:00 15:00 23:00 Intake Total 360 ml Balance 360 ml Intake Oral 360 ml # Voids 4 # Bowel Movements 1 Result Diagram: 11/13/16 1029 11/13/16 1029 Imaging Last Impressions Abdomen/Pelvis CT 11/13/16 0000 Signed Impressions: Service Date/Time: October 09:11 - CONCLUSION: 1. Interval decrease in the size of the small fluid collection adjacent to the head of the pancreas and an anastomotic suture line. This now measures 2.2 cm in greatest dimension and remains nonspecific. 2. Multiple calcified nonobstructing upper pole right renal calculi. 3. Gallbladder sludge. Kevin Koroma MD Head CT 11/12/16 8112 Signed Impressions: Service Date/Time: Saturday, November 12, 2016 19:19 - CONCLUSION: Negative noncontrast head CT. Rene Alan MD Chest X-Ray 11/12/16 3813 Signed Impressions: Service Date/Time: Saturday, November 12, 2016 18:12 - CONCLUSION: No evidence of acute cardiopulmonary disease. Rene Alan MD Objective Remarks blunt affect anicteric lungs clear regular rhythm abdomen soft, nontender extremities no edema neuro exam- non focal A/P Problem List: (1) Hypoglycemia ICD Code: E16.2 Status: Acute Assessment and Plan Hypoglycemia, symptomatic - frequent blood glucose monitoring - decrease to q 6 - continue IVF - denies use of any insulin, medications, no family at home with diabetes - started on regular diet - hypoglycemia treatment protocol ordered -check c peptide, insulin, proinsulin, hemoglobin A1C Possible intraabdominal abscess -- seen by GS- doubt- oral contrast ordered - Abdomen/pelvis CT with IV contrast showed right upper quadrant adjacent to left hepatic lobe with 2.7 fluid collection potentially an abscess. Very large amount of stool in the colon. - Vancomycin IV with pharmacy consult for therapeutic dosing and monitoring - IV Cipro 400 mg q12h and IV Zosyn 4.5 gm q6h - Lactobacillus TID p.o. to maintain normal gastrointestinal dom while on antibiotics - general surgery- evaluation History of depression. continue meds History of migraines. continue meds DVT prophylaxis - SCDs/TEDs Maryam Clark MD Nov 13, 2016 17:21
--- NOTE | 2016-11-13 17:48 | HHI.PR ---
Subjective Subjective Notes Resting in bed at bedside Objective Vitals/I&O Vital Signs Date Time Temp Pulse Resp B/P Pulse Ox O2 Delivery O2 Flow Rate FiO2 11/13/16 16:00 97.0 57 16 142/76 100 11/12/16 23:39 Room Air 11/12/16 17:50 21 Labs Laboratory Tests Test 11/12/16 11/12/16 11/13/16 18:00 21:30 10:29 White Blood Count 4.1 5.3 Red Blood Count 3.40 3.39 Hemoglobin 8.9 8.9 Hematocrit 28.8 28.4 Mean Corpuscular Volume 84.8 83.7 Mean Corpuscular Hemoglobin 26.3 26.4 Mean Corpuscular Hemoglobin 31.0 31.5 Concent Red Cell Distribution Width 19.6 19.4 Platelet Count 171 176 Mean Platelet Volume 9.9 10.6 Neutrophils (%) (Auto) 52.5 52.8 Lymphocytes (%) (Auto) 32.2 33.7 Monocytes (%) (Auto) 8.5 6.6 Eosinophils (%) (Auto) 5.8 6.0 Basophils (%) (Auto) 1.0 0.9 Neutrophils # (Auto) 2.2 2.8 Lymphocytes # (Auto) 1.3 1.8 Monocytes # (Auto) 0.4 0.3 Eosinophils # (Auto) 0.2 0.3 Basophils # (Auto) 0.0 0.0 CBC Comment DIFF FINAL DIFF FINAL Differential Comment Prothrombin Time 10.8 Prothromb Time International 1.0 Ratio Activated Partial 23.0 Thromboplast Time Sodium Level 142 141 Potassium Level 3.5 3.8 Chloride Level 112 106 Carbon Dioxide Level 23.9 24.1 Anion Gap 6 11 Blood Urea Nitrogen 12 6 Creatinine 0.60 0.52 Estimat Glomerular Filtration 99 117 Rate Random Glucose 84 104 Lactic Acid Level 1.3 Calcium Level 8.0 7.9 Total Bilirubin 0.3 Aspartate Amino Transf 12 (AST/SGOT) Alanine Aminotransferase 19 (ALT/SGPT) Alkaline Phosphatase 76 Total Creatine Kinase 56 Total Protein 5.6 Albumin 3.1 Thyroid Stimulating Hormone 1.630 3rd Gen Carbamazepine (Tegretol) Level 2.7 Urine Color YELLOW Urine Turbidity CLEAR Urine pH 5.0 Urine Specific [place] 1.024 Urine Protein NEG Urine Glucose (UA) NEG Urine Ketones NEG Urine Occult Blood NEG Urine Nitrite NEG Urine Bilirubin NEG Urine Urobilinogen LESS THAN 2.0 Urine Leukocyte Esterase NEG Urine RBC 14 Urine WBC 1 Urine Squamous Epithelial <1 Cells Microscopic Urinalysis Comment CATH-CULT NOT IND Date/Time Procedure Status Source Growth 11/12/16 18:30 Aerobic Blood Culture - Preliminary Resulted Blood Peripheral NO GROWTH IN 1 DAY 11/12/16 18:30 Anaerobic Blood Culture - Preliminary Resulted Blood Peripheral NO GROWTH IN 1 DAY Cardiovascular: Regular Lungs: Clear Abdomen: Non-distended, Non-tender, Other (healed midline scar ) Extremities: No edema A/P Assessment and Plan 71 year old female with remote history of gastric bypass; intussusception repair on 09/16; intra-abdominal abscess IR drainage; now back with hypoglycemic event -Diet as tolerated -OOB and mobilize -CT scans reviewed -Recommend dietary consult -No surgical plans Attending Statement The exam, history, and the medical decision-making described in the above note were completed with the assistance of the mid-level provider. I reviewed and agree with the findings presented. I attest that I had a [id number] encounter with the patient on the same day, and personally performed and documented my assessment and findings in the medical record. patient admitted for hypoglycemia, discussed hypoglycemia associated with RNY GB due to high sugar foods with patient and abdominal exam: no guarding or peritonitis no surgical issues at this time, recommend follow up with [facility] Elaine Mahoney Nov 13, 2016 17:48 Israel Stauffer MD Nov 21, 2016 10:25
[2016-11-13] MEDS ORDERED: PILL SPLITTER OTHER PRN (19:15)
[2016-11-13] MEDS ORDERED: CARBAMAZEPINE 100 MG PO SCH (21:00)
[2016-11-13] MEDS: D5-NS + KCL 20 MEQ INJ 1,000 ML IV SCH (21:13)
[2016-11-13] MEDS: PREGABALIN 100 MG CAP PO SCH (21:15)
[2016-11-13] MEDS: buPROPion HCL 75 MG TAB PO SCH (21:16)
[2016-11-13] MEDS: TOPIRAMATE 25 MG TAB PO SCH (21:16)
[2016-11-13] MEDS: DULoxetine HCl DR 60 MG CAP PO SCH (21:18)
[2016-11-14] VITALS: BP 124/66; PULSE 61; RESP 15; TEMP 98.2; O2SAT 98
[2016-11-14] MEDS: ACETAMINOPHEN/HYDROcodone 325 MG/5 MG TAB PO PRN ×4 (00:29→13:53)
[2016-11-14] MEDS: CIPROFLOXACIN 400 MG PREMIX 200 ML IV SCH ×2 (00:29→13:53)
[2016-11-14] MEDS: PIPERACIL-TAZO 4.5 GM PREMIX 100 ML IV SCH ×2 (03:17→09:02)
[2016-11-14 05:00] VITALS: BP 141/80; PULSE 61; RESP 15; TEMP 98.1; O2SAT 98
[2016-11-14] MEDS: D5-NS + KCL 20 MEQ INJ 1,000 ML IV SCH (05:06)
[2016-11-14] MEDS ORDERED: LEVOTHYROXINE SODIUM 100 MCG TAB PO SCH (06:00)
[2016-11-14 08:00] VITALS: BP 149/67; PULSE 59; RESP 18; TEMP 98.5; O2SAT 98
[2016-11-14] MEDS: DOCUSATE SODIUM 50 MG/SENNA 8.6 MG TAB PO SCH (09:00)
[2016-11-14] MEDS ORDERED: LOSARTAN 25 MG TAB PO SCH (09:00)
[2016-11-14] MEDS: LACTOBACILLUS ACIDOPHILUS 1 GM PACKET PO SCH ×2 (09:02→13:53)
[2016-11-14] MEDS: buPROPion HCL 75 MG TAB PO SCH (09:02)
[2016-11-14] MEDS: DEXTROAMPHETAMINE/AMPHETAMINE 20 MG TAB PO SCH ×2 (09:02→13:53)
[2016-11-14] MEDS: TOPIRAMATE 25 MG TAB PO SCH (09:04)
[2016-11-14] MEDS: DULoxetine HCl DR 60 MG CAP PO SCH (09:04)
[2016-11-14] MEDS: PREGABALIN 100 MG CAP PO SCH ×2 (09:04→13:53)
[2016-11-14] MEDS: SODIUM CHLORIDE 0.9% FLUSH 10 ML FLUSH IV FLUSH SCH (09:06)
[2016-11-14] MEDS ORDERED: PHARMACY ORDERED LAB ONE (09:45)
[2016-11-14 09:51] LABS: ANION GAP 8 MEQ/L (5-15); BICARBONATE 24.9 MEQ/L (21.0-32.0); BLOOD UREA NITROGEN 5 MG/DL (7-18); CHLORIDE 109 MEQ/L (98-107); GLOMERULAR FILTRATION RATE 86 ML/MIN (>89); POTASSIUM 3.5 MEQ/L (3.5-5.1); SODIUM (NA) 142 MEQ/L (136-145)
[2016-11-14] MEDS ORDERED: PNEUMOCOCCAL POLYVALENT INJ 25 MCG/0.5 ML SYR IM ONE (10:00)
[2016-11-14 10:03] LABS: HDL CHOLESTEROL 79.8 MG/DL (40.0-60.0); LDL CHOLESTEROL 59 MG/DL (0-99)
[2016-11-14] MEDS: VANCOMYCIN 1,000 MG/NS 250 ML IV SCH ×2 (10:50)
[2016-11-14 13:00] VITALS: BP 134/63; PULSE 76; RESP 18; TEMP 98.1; O2SAT 98
--- NOTE | 2016-11-14 14:15 | HHI.PR ---
Subjective Remarks very animated and interactive today tolerating po well, n nausea or vomiting vague abdominal discomfort- -post op paion- patient states she still has [place] from previous admission from dr. Carbajal Objective Vitals Vital Signs Date Time Temp Pulse Resp B/P Pulse Ox O2 Delivery O2 Flow Rate FiO2 11/14/16 13:00 98.1 76 18 134/63 98 11/14/16 08:00 98.5 59 18 149/67 98 11/14/16 05:00 98.1 61 15 141/80 98 11/14/16 00:00 98.2 61 15 124/66 98 11/13/16 20:00 97.8 66 15 138/77 98 11/13/16 16:00 97.0 57 16 142/76 100 I/O 11/13/16 11/13/16 11/13/16 11/14/16 11/14/16 11/14/16 07:00 15:00 23:00 07:00 15:00 23:00 Intake Total 360 ml 480 ml 720 ml Balance 360 ml 480 ml 720 ml Intake Oral 360 ml 480 ml 720 ml # Voids 4 2 # Bowel Movements 1 Result Diagram: 11/13/16 1029 11/14/16 0840 Imaging Last Impressions Abdomen/Pelvis CT 11/13/16 0000 Signed Impressions: Service Date/Time: October 09:11 - CONCLUSION: 1. Interval decrease in the size of the small fluid collection adjacent to the head of the pancreas and an anastomotic suture line. This now measures 2.2 cm in greatest dimension and remains nonspecific. 2. Multiple calcified nonobstructing upper pole right renal calculi. 3. Gallbladder sludge. Kevin Koroma MD Head CT [id number]/[id number] Signed Impressions: Service Date/Time: Saturday, November 12, 2016 19:19 - CONCLUSION: Negative noncontrast head CT. Rene Alan MD Chest X-Ray [id number]/[id number] Signed Impressions: Service Date/Time: Saturday, November 12, 2016 18:12 - CONCLUSION: No evidence of acute cardiopulmonary disease. Rene Alan MD Objective Remarks more interactive today anicteric lungs clear regular rhythm abdomen soft, nontender extremities no edema neuro exam- non focal A/P Problem List: (1) Hypoglycemia ICD Code: E16.2 Status: Acute Assessment and Plan Hypoglycemia, symptomatic - frequent blood glucose monitoring -=- good redings - denies use of any insulin, medications, no family at home with diabetes - started on regular diet - hypoglycemia treatment protocol ordered -check c peptide, insulin, proinsulin, hemoglobin A1C- pending - will forward results to PCP - glucose monitoring- as OP/home- nursing instructions/education Possible intraabdominal abscess- None seen -- seen by GS- doubt- oral contrast ordered -- doubt abscess - OPP ff up with GS -[per patient she has Mclean from previous- Dr. Carbajal scripts History of depression. continue meds History of migraines. continue meds Home todayOP referral to our local banking officer- Maryam Clark MD Nov 14, 2016 14:15
[2016-11-14] MEDS ORDERED: BLOOD GLUCOSE M1 KIT (14:21)
--- NOTE | 2016-11-14 14:24 | HHI.DS ---
Discharge Summary Admission Date Nov 12, 2016 at 20:31 Discharge Date: Nov 14, 2016 Admitting Diagnosis AMS, Hypoglycemia, Hypothermia, Intraperitoneal Collection (1) Hypoglycemia ICD Code: E16.2 Diagnosis: Principal Procedures none Brief History - From Admission The patient states that she was at home and felt sweaty, light-headed and passed out. She was watching TV while lying in bed prior to episode; didn't feel well, walked out of bedroom, yelled for , and passed out - didn't regain full consciousness until here in ER. States blood glucose was low upon EMS arrival "like 30". Denies any history of diabetes. Does not take any medications for hyperglycemia. Denies fever, nausea, vomiting, diarrhea, black or red stool, hematuria, dysuria , decrease in appetite or dietary intake, . Saw Dr. Scherer on and he placed her on Flagyl and submitted a stool sample for culture (reports culture resulted and it was negative). Stools were loose, smelly, and had increased gas passing which was why culture was performed. The patient reports bowel intussusception with open reduction performed by Dr. Stauffer on 09/16/16. She was then admitted October 11 and discharged October 18 after abscess/infection. Fistula repair at [facility] with partial gastrectomy in March 2016 - hospitalized for 7 days. Denies Crohn's disease or ulcerative colitis or cancer. . CBC/BMP: 11/13/16 1029 11/14/16 0840 Significant Findings Laboratory Tests Test 11/12/16 11/12/16 11/13/16 11/14/16 18:00 21:30 10:29 08:40 Red Blood Count 3.40 MIL/MM3 3.39 MIL/MM3 (4.00-5.30) (4.00-5.30) Hemoglobin 8.9 GM/DL 8.9 GM/DL (11.6-15.3) (11.6-15.3) Hematocrit 28.8 % 28.4 % (35.0-46.0) (35.0-46.0) Mean Corpuscular Hemoglobin 26.3 PG 26.4 PG (27.0-34.0) (27.0-34.0) Mean Corpuscular Hemoglobin 31.0 % 31.5 % Concent (32.0-36.0) (32.0-36.0) Red Cell Distribution Width 19.6 % 19.4 % (11.6-17.2) (11.6-17.2) Monocytes (%) (Auto) 8.5 % (0.0-8.0) Eosinophils (%) (Auto) 5.8 % (0.0-4.0) 6.0 % (0.0-4.0) Activated Partial 23.0 SEC Thromboplast Time (24.3-30.1) Chloride Level 112 MEQ/L 109 MEQ/L (98-107) (98-107) Calcium Level 8.0 MG/DL 7.9 MG/DL 7.9 MG/DL (8.5-10.1) (8.5-10.1) (8.5-10.1) Aspartate Amino Transf 12 U/L (15-37) (AST/SGOT) Total Protein 5.6 GM/DL (6.4-8.2) Albumin 3.1 GM/DL (3.4-5.0) Carbamazepine (Tegretol) Level 2.7 MCG/ML (4.0-12.0) Urine RBC 14 /hpf (0-3) Blood Urea Nitrogen 6 MG/DL (7-18) 5 MG/DL (7-18) Estimat Glomerular Filtration 86 ML/MIN (>89) Rate HDL Cholesterol 79.8 MG/DL (40.0-60.0) Thyroid Stimulating Hormone 4.030 uIU/ML 3rd Gen (0.358-3.740) Test 11/14/16 10:20 Vancomycin Level Trough 13.9 MCG/ML (5.0-10.0) Imaging Last Impressions Abdomen/Pelvis CT 11/13/16 0000 Signed Impressions: Service Date/Time: October 09:11 - CONCLUSION: 1. Interval decrease in the size of the small fluid collection adjacent to the head of the pancreas and an anastomotic suture line. This now measures 2.2 cm in greatest dimension and remains nonspecific. 2. Multiple calcified nonobstructing upper pole right renal calculi. 3. Gallbladder sludge. Kevin Koroma MD Head CT 11/12/161756 Signed Impressions: Service Date/Time: Saturday, November 12, 2016 19:19 - CONCLUSION: Negative noncontrast head CT. Rene Alan MD Chest X-Ray 11/12/161756 Signed Impressions: Service Date/Time: Saturday, November 12, 2016 18:12 - CONCLUSION: No evidence of acute cardiopulmonary disease. Rene Alan MD PE at Discharge more interactive today anicteric lungs clear regular rhythm abdomen soft, nontender extremities no edema neuro exam- non focal Pt update on day of discharge awake and alert, no pain complains neruo exam- unremarkable bedside teaching done- regarding hypoglycemic symptoms- diet reinforced OP ff up with PCP Hospital Course Hypoglycemia, symptomatic - frequent blood glucose monitoring -=- good readings - denies use of any insulin, medications, no family at home with diabetes - started on regular diet - hypoglycemia treatment protocol ordered -check c peptide, insulin, proinsulin, hemoglobin A1C- pending - will forward results to PCP - glucose monitoring- as OP/home- nursing instructions/education Possible intraabdominal abscess- None seen -- seen by GS- doubt- oral contrast ordered -- doubt abscess - OP ff up with GS -[per patient she has [place] from previous- Dr. Carbajal scripts History of depression. continue meds History of migraines. continue meds Home today- OP referral to our local tobacco drier operator- Pt Condition on Discharge: Stable Discharge Disposition: Discharge Home Discharge Time: <= 30 minutes Discharge Instructions DIET: Follow Instructions for: As Tolerated, No Restrictions Additional Diet Instructions: check blood glucose fasting and 2 hours after biggest meal of the day take HS snacks Activities you can perform: Weight Bearing as Krysta Follow up Referrals: PCP Follow-up - 11/17/16 with [facility] [place] [facility] - 1 Week with Israel Stauffer MD New Medications: Blood Glucose Monitoring W/Device (Blood Glucose Monitoring W/Device) 1 Kit Kit 1 KIT .ROUTE DIRECTED Blood Sugar Management #1 Ref 0 KIT Continued Medications: Alprazolam (Xanax) 0.25 Mg Tab 0.25 MG PO Q4H PRN ANXIETY Ref 0 TAB Amphetamine-Dextroamphetamine (Adderall) 20 Mg Tab 20 MG PO BID Avoid late evening doses. Space doses at least 4 to 6 hours if more than once/day dosing. Hyperactivity Control #60 Ref 0 TAB Bupropion HCl ER 12 HR (Wellbutrin SR 12 HR) 150 Mg Tab 75 MG PO BID Control Depression Ref 0 TAB Carbamazepine ER 12 HR (Tegretol-Xr 12 HR) 100 Mg Tab 100 MG PO Q12HR #60 Ref [address] (Cymbalta DR) 60 Mg Capdr 60 MG PO BID #30 Ref 0 CAP Hydrocodone-Acetaminophen (Lortab) 5-325 Mg Tab 1 TAB PO Q6H PRN PAIN Ref 0 TAB Levothyroxine (Synthroid) 100 Mcg Tab 100 MCG PO DAILY Thyroid #30 Ref 0 TAB Losartan (Losartan) 25 Mg Tab 12.5 MG PO DAILY Blood Pressure Management #15 Ref 0 TAB Pregabalin (Lyrica) 100 Mg Cap 100 MG PO TID #60 Ref 0 CAP Topiramate (Topamax) 50 Mg Tab 50 MG PO BID Control Seizures #60 Ref 0 TAB Maryam Clark MD Nov 14, 2016 14:24
[2016-11-14 15:31] LABS: HEMOGLOBIN A1a 1.3 %; HEMOGLOBIN A1b 0.8 %; HEMOGLOBIN Ao 84.7 %; HEMOGLOBIN F 1.3 %; HEMOGLOBIN LA1C 2.1 %
== END 2016-11-14 17:10 | disposition home or self-care (01) | DRG 641 ==
LOC: NEPC 17:52 → NEDA 20:31 → NEDH 11-13 00:29 → HOCB 11-13 01:27
PROVIDERS: ADMIT Internal Medicine; ATTEND Internal Medicine
DX: E16.2 Hypoglycemia, unspecified (principal); I10 Essential (primary) hypertension; F32.9 Major depressive disorder, single episode, unspecified; M79.7 Fibromyalgia; F41.9 Anxiety disorder, unspecified; K21.9 Gastro-esophageal reflux disease without esophagitis; R68.0 Hypothermia, not associated with low environmental temperature; E03.9 Hypothyroidism, unspecified; K59.00 Constipation, unspecified; Z98.84 Bariatric surgery status; Z23 Encounter for immunization; Z87.891 Personal history of nicotine dependence; Z87.442 Personal history of urinary calculi
CPT/HCPCS: 70450; 71010; 74176; 74177; 80048; 80053; 80061; 80156; 80202; 81001; 82550; 82948; 83036; 83525; 83605; 84443; 84681; 85025; 85610; 85730; 87040; 90732; 93005; 96374; J0744; J2543; J3370; J3480; J7030; J7050; J7070; Q9963; Q9967

== ENCOUNTER 2017-02-01 11:46 | Emergency (ER) | payer MEDICARE, BC ==
[~2017-02-01] VITALS: Ht 167.6 cm; Wt 53.0 kg
[~2017-02-01 11:46] MED LIST changes: +ADDE20 PO; -ADDE20XR PO; -AUGM875T PO; +BLOOD GLUCOSE M1 KIT; -BUPR100CR PO; +BUPR150CR PO; +CHOL5000 PO; -LOSA25TA PO; +LOSA50TA PO; +RIZA5TAB3 PO; +TEGR100T PO; +VALA1TAB PO
[2017-02-01 11:57] VITALS: BP 147/83; PULSE 85; RESP 16; TEMP 98.9; O2SAT 96
[2017-02-01 13:05] VITALS: BP 158/88; PULSE 74; RESP 18; O2SAT 97
[2017-02-01] MEDS ORDERED: SODIUM CHLORIDE 0.9% FLUSH 10 ML FLUSH IV FLUSH PRN (13:30)
[2017-02-01 14:01] LABS: AUTOMATED NEUTROPHIL # 4.7 TH/MM3 (1.8-7.7); BASOPHIL % 0.6 % (0.0-2.0); EOSINOPHIL # 0.2 TH/MM3 (0-0.4); EOSINOPHIL % 2.7 % (0.0-4.0); HEMATOCRIT 31.9 % (35.0-46.0); HEMO FLAGS AUTO DIFF; LYMPHOCYTE # 1.9 TH/MM3 (1.0-4.8); MEAN CELL VOLUME 76.9 FL (80.0-100.0); MEAN CORPUSCULAR HEMOGLOBIN 23.6 PG (27.0-34.0); MEAN CORPUSCULAR HGB CONC 30.6 % (32.0-36.0); MONO % 7.7 % (0.0-8.0); PLATELET COUNT 221 TH/MM3 (150-450); RED BLOOD COUNT 4.15 MIL/MM3 (4.00-5.30); RED CELL DISTRIBUTION WIDTH 16.4 % (11.6-17.2); WHITE BLOOD COUNT 7.4 TH/MM3 (4.0-11.0)
[2017-02-01 14:17] LABS: PLATELET ESTIMATE SMEAR NORMAL (NORMAL); PLATELET MORPHOLOGY NORMAL (NORMAL); ROULEAUX PRESENT (NORMAL); SCAN/DIFF AUTO DIFF CONFIRMED
[2017-02-01 14:35] LABS: BLOOD, URINE TRACE (NEG); GLUCOSE,URINE NEG (NEG); KETONE, URINE NEG (NEG); NITRITE,URINE NEG (NEG)
[2017-02-01 14:41] LABS: METHOD OF COLLECTION CLEAN CATCH
[2017-02-01 14:42] LABS: COMMENT (UR) CULT NOT INDICATED; CULTURE IF INDICATED CULT NOT INDICATED; RBC, URINE 0-3 /hpf (0-3); SQUAMOUS EPITHELIAL CELL URINE 0-5 /hpf (0-5); URINE COLOR YELLOW (YELLW/STRAW)
[2017-02-01 14:45] VITALS: BP 151/82; PULSE 82; RESP 19; O2SAT 97
[2017-02-01 14:58] LABS: CHLORIDE 108 MEQ/L (98-107); POTASSIUM 3.8 MEQ/L (3.5-5.1); SODIUM (NA) 140 MEQ/L (136-145)
[2017-02-01] MEDS ORDERED: HYDROmorphone HCL PF 1 MG/ML VIAL IV PUSH ONE (15:00)
[2017-02-01] MEDS ORDERED: ONDANSETRON HCL 4 MG/2 ML VIAL IV PUSH ONE (15:00)
[2017-02-01 15:01] LABS: ANION GAP 8 MEQ/L (5-15); BICARBONATE 24.3 MEQ/L (21.0-32.0)
[2017-02-01 15:02] LABS: BLOOD UREA NITROGEN 9 MG/DL (7-18)
[2017-02-01 15:05] LABS: ALT (GPT) 18 U/L (10-53); AST (GOT) 17 U/L (15-37); GLOMERULAR FILTRATION RATE 84 ML/MIN (>89)
[2017-02-01 15:06] LABS: TOTAL BILIRUBIN ADULT 0.2 MG/DL (0.2-1.0)
--- NOTE | 2017-02-01 15:06 | PD ---
HPI Chief Complaint: Abdominal Pain Time Seen by Provider: 13:16 Travel History International Travel<30 days: No Contact w/Intl Traveler<30days: No Traveled to known affect area: No History of Present Illness HPI Patient presents with abdominal pain for 2-3 days. Denies any nausea or vomiting. Denies any change in bowels. Gastric bypass. section.Fistula repair. Reports a history of intussusception 2 with surgical repair. Denies any chest pain shortness of breath urinary or bowel symptoms. Reports poor food intake. Denies fever. Pain is localized over her entire abdomen. Reports feeling bloated. States she has been burping more with less flatulence. PFSH Past Medical History ADD: Yes Arthritis: No Asthma: No Autoimmune Disease: No Blood Disorders: No Anxiety: Yes Depression: Yes Heart Rhythm Problems: No Cancer: No Cardiovascular Problems: Yes (htn on meds) High Cholesterol: No Chemotherapy: No Chest Pain: No Congestive Heart Failure: No COPD: No Cerebrovascular Accident: No Diabetes: No Diminished Hearing: No Endocrine: Yes Fibromyalgia: Yes Gastrointestinal Disorders: Yes (INTUSSUPATION, FISTULLA REPAIR SEPTEMBER 2016) GERD: Yes Glaucoma: No Genitourinary: No Headaches: Yes Hiatal Hernia: Yes Hypertension: Yes (A LITTLE HIGH SOMETIMES) Immune Disorder: No Implanted Vascular Access Dvce: No Kidney Stones: Yes Musculoskeletal: Yes (RIGHT ROTATOR CUFF REPAIR) Neurologic: No Psychiatric: Yes (ADD) Reproductive: No Respiratory: No Migraines: Yes Radiation Therapy: No Renal Failure: No Seizures: No Sickle Cell Disease: No Sleep Apnea: No Thyroid Disease: Yes Ulcer: No Influenza Vaccination: No PNEUMOCCOCAL Vaccine (Year): 1 ?: Not Menopausal: Yes Past Surgical History Abdominal Surgery: Yes (intestinal repair SEPTEMBER) AICD: No Arteriovenous Shunt: No Ear Surgery: No Endocrine Surgery: Yes (HYOTHYROIDISM, HYPOGLYCEMIA) Eye Surgery: Yes (LASIK) Gynecologic Surgery: Yes ( SECTION) Insulin Pump: No Oral Surgery: No Pacemaker: No Other Surgery: Yes (GASTRIC BYPASS 2002) Social History Alcohol Use: No Tobacco Use: No Substance Use: No Allergies-Medications (Allergen,Severity, Reaction): Coded Allergies: No Known Allergies (Verified , 02/01/17) Reported Meds & Prescriptions Reported Meds & Active Scripts Active Losartan (Losartan Potassium) 50 Mg Tab 50 Mg PO DAILY Vitamin D3 (Cholecalciferol) 5,000 Unit Cap 5,000 Units PO DAILY Reported Rizatriptan Odt (Rizatriptan Benzoate) 5 Mg Tab 5 Tab PO ONCE PRN Valacyclovir (Valacyclovir HCl) 1 Gm Tab 1,000 Mg PO DAILY Tegretol-Xr 12 HR (Carbamazepine) 100 Mg Tab 100 Mg PO Q12HR Wellbutrin SR 12 HR (Bupropion HCl) 150 Mg Tab 150 Mg PO BID Adderall (Amphetamine-Dextroamphetamine) 20 Mg Tab 20 Mg PO BID Avoid late evening doses. Space doses at least 4 to 6 hours if more than once/day dosing. Lortab (Hydrocodone-Acetaminophen) 5-325 Mg Tab 1 Tab PO Q6H PRN Topamax (Topiramate) 50 Mg Tab 50 Mg PO BID Synthroid (Levothyroxine Sodium) 100 Mcg Tab 100 Mcg PO DAILY Lyrica (Pregabalin) 100 Mg Cap 100 Mg PO TID Cymbalta DR (Duloxetine HCl) 60 Mg Capdr 60 Mg PO BID Xanax (Alprazolam) 0.25 Mg Tab 0.25 Mg PO Q4H PRN Review of Systems General / Constitutional: No: Fever Eyes: No: Visual changes HENT: No: Headaches Cardiovascular: No: Chest Pain or Discomfort Respiratory: No: Shortness of Breath Gastrointestinal: Positive: Abdominal Pain Genitourinary: No: Dysuria Musculoskeletal: No: Pain Skin: No Rash Neurologic: No: Weakness Psychiatric: No: Depression Endocrine: No: Polydipsia Hematologic/Lymphatic: No: Easy Bruising Physical Exam Narrative GENERAL: Well-nourished, well-developed patient. SKIN: Focused skin assessment warm/dry. HEAD: Normocephalic. EYES: No scleral icterus. No injection or drainage. NECK: Supple, trachea midline. No JVD or lymphadenopathy. CARDIOVASCULAR: Regular rate and rhythm without murmurs, gallops, or rubs. RESPIRATORY: Breath sounds equal bilaterally. No accessory muscle use. GASTROINTESTINAL: Diffusely tender with guarding, surgical scar noted MUSCULOSKELETAL: No cyanosis, or edema. BACK: Nontender without obvious deformity. No CVA tenderness. Data Data Last Documented VS Vital Signs Date Time Temp Pulse Resp B/P (MAP) Pulse Ox O2 Delivery O2 Flow Rate FiO2 02/01/17 14:45 82 19 151/82 (105) 97 02/01/17 13:30 Room Air 02/01/17 11:57 98.9 Orders Orders Complete Blood Count With Diff (02/01/17 13:16) Lipase (02/01/17 13:16) Lactic Acid (02/01/17 13:16) Urinalysis - C+S If Indicated (02/01/17 13:16) Ct Abd/Pel W Iv Contrast(Rout) (02/01/17 13:16) Iv Access Insert/Monitor (02/01/17 13:16) Ecg Monitoring (02/01/17 13:16) Oximetry (02/01/17 13:16) NPO (02/01/17 13:16) Sodium Chloride 0.9% Flush (Ns Flush) (02/01/17 13:30) Comprehensive Metabolic Panel (02/01/17 14:34) Hydromorphone Pf Inj (Dilaudid Pf Inj) (02/01/17 15:00) Ondansetron Inj (Zofran Inj) (02/01/17 15:00) Iohexol 350 Inj (Omnipaque 350 Inj) (02/01/17 15:19) Labs Laboratory Tests Test 02/01/17 13:22 02/01/17 13:55 White Blood Count 7.4 TH/MM3 Red Blood Count 4.15 MIL/MM3 Hemoglobin 9.8 GM/DL Hematocrit 31.9 % Mean Corpuscular Volume 76.9 FL Mean Corpuscular Hemoglobin 23.6 PG Mean Corpuscular Hemoglobin Concent 30.6 % Red Cell Distribution Width 16.4 % Platelet Count 221 TH/MM3 Mean Platelet Volume 10.4 FL Neutrophils (%) (Auto) 63.0 % Lymphocytes (%) (Auto) 26.0 % Monocytes (%) (Auto) 7.7 % Eosinophils (%) (Auto) 2.7 % Basophils (%) (Auto) 0.6 % Neutrophils # (Auto) 4.7 TH/MM3 Lymphocytes # (Auto) 1.9 TH/MM3 Monocytes # (Auto) 0.6 TH/MM3 Eosinophils # (Auto) 0.2 TH/MM3 Basophils # (Auto) 0.0 TH/MM3 CBC Comment AUTO DIFF Differential Comment AUTO DIFF CONFIRMED Platelet Estimate NORMAL Platelet Morphology Comment NORMAL Basophilic Stippling FAINT Rouleau PRESENT Blood Urea Nitrogen 9 MG/DL Creatinine 0.69 MG/DL Random Glucose 89 MG/DL Total Protein 6.8 GM/DL Albumin 3.4 GM/DL Calcium Level 8.7 MG/DL Alkaline Phosphatase 83 U/L Aspartate Amino Transf (AST/SGOT) 17 U/L Alanine Aminotransferase (ALT/SGPT) 18 U/L Total Bilirubin 0.2 MG/DL Sodium Level 140 MEQ/L Potassium Level 3.8 MEQ/L Chloride Level 108 MEQ/L Carbon Dioxide Level 24.3 MEQ/L Anion Gap 8 MEQ/L Estimat Glomerular Filtration Rate 84 ML/MIN Lactic Acid Level 1.3 mmol/L Lipase 147 U/L Urine Collection Type CLEAN CATCH Urine Color YELLOW Urine Turbidity CLEAR Urine pH 6.0 Urine Specific [place] 1.007 Urine Protein NEG mg/dL Urine Glucose (UA) NEG mg/dL Urine Ketones NEG mg/dL Urine Occult Blood TRACE Urine Nitrite NEG Urine Bilirubin NEG Urine Leukocyte Esterase NEG Urine RBC 0-3 /hpf Urine Squamous Epithelial Cells 0-5 /hpf Urine Amorphous Sediment FEW Microscopic Urinalysis Comment CULT NOT INDICATED Urine Collection Time 1538 MDM Medical Decision Making Medical Screen Exam Complete: Yes Emergency Medical Condition: Yes Differential Diagnosis Small bowel obstruction, intussusception, gastroenteritis, volvulus Narrative Course Assessment and plan discussed with patient at bedside. Abnormal bowel gas pattern with bowel wall thickening and enhancement distal ileum and distal descending colon. Small bowel is dilated to 4 cm. Evidence for previous gastric bypass surgery. History of previous right lower quadrant abscess. Spoke to the patient and offered admission for observation and GI consult. Patient declines. States she is scheduled to follow up with [facility]/Dr. Cervantes and will investigate her abdominal discomfort further with them. Diagnosis Primary Impression: Abdominal pain Qualified Codes: R10.84 - Generalized abdominal pain Additional Instructions: Follow-up with gastroenterology, return to emergency with any onset of new symptoms, follow-up with PCP, pain medication as needed Scripts Hydrocodone-Acetaminophen (Hydrocodone-Acetaminophen) 5-325 mg Tab 1 TAB PO Q4H Y for PAIN, #30 TAB 0 Refills Prov: Jean Clay MD 02/01/17 Disposition: 01 DISCHARGE HOME Condition: Good Jean Clay MD Feb 01, 2017 15:06
[2017-02-01 15:07] LABS: ALKALINE PHOSPHATASE 83 U/L (45-117)
[2017-02-01] MEDS ORDERED: IOHEXOL 350 MG/ML 10 ML VIAL (for RAD DIAG) IVCONTRAST ONE ×2 (15:15→15:19)
--- NOTE | 2017-02-01 15:33 | RADRPT ---
EXAM DATE/TIME: 02/01/2017 15:15 [place] COMPARISON: CT ABDOMEN & PELVIS W CONTRAST, November 12, 2016, 19:24. INDICATIONS : Abdominal distention and nausea. IV CONTRAST: 90 cc Omnipaque 350 (iohexol) IV ORAL CONTRAST: No oral contrast ingested. RADIATION DOSE: 5.01 CTDIvol (mGy) MEDICAL HISTORY : Hypertension. Hypothyroidism. SURGICAL HISTORY : Gastric bypass. section.Fistula repair. Intussupation. ENCOUNTER: Initial ACUITY: 4 - 6 days PAIN SCALE: 4/10 LOCATION: Bilateral abdomen TECHNIQUE: Volumetric scanning of the abdomen and pelvis was performed. Using automated exposure control and ad justment of the mA and/or kV according to patient size, radiation dose was kept as low as reasonably achievable to obtain optimal diagnostic quality images. DICOM format image data is available electro nically for review and comparison. FINDINGS: LOWER LUNGS: Mild emphysematous changes are evident. LIVER: Homogeneous density without lesion. There is no dilation of the biliary tree. No calcified gallston es. SPLEEN: Normal size without lesion. PANCREAS: Within normal limits. ADRENAL GLANDS: Within normal limits. RIGHT KIDNEY: 2 small nonobstructing stones LEFT KIDNEY: Normal in size and shape. There is no mass, stone, or hydronephrosis.. VASCULAR: There is no aortic aneurysm. BOWEL/MESENTERY: There is moderate distention of distal small bowel when compared to proximal. Stool is seen in the a scending and transverse colon. Abnormal loop of terminal ileum is evident with bowel wall thickening and enhancement. Minimal bowel wall thickening is seen in the descending colon with enhancement. T here is no free air. Trace ascites is evident. RETROPERITONEUM: There is no lymphadenopathy. PELVIC CONTENTS: Trace fluid is present with solid stool in the colon without diverticulitis. ABDOMINAL WALL: Within normal limits. INGUINAL: There is no lymphadenopathy or hernia. MUSCULOSKELETAL: Within normal limits for patient age. CONCLUSION: Abnormal bowel gas pattern with bowel wall thickening and enhancement distal ileum an d distal descending colon. Small bowel is dilated to 4 cm. Evidence for previous gastric bypass surgery. History of previous right lower quadrant abscess. I d on't see evidence for such on today's exam. Ty Rossi MD FACR on February 01, 2017 at 15:26 Board Certified Radiologist. This report was verified electronically.
[2017-02-01 15:45] VITALS: BP 141/70; PULSE 79; RESP 16; O2SAT 96
[2017-02-01] MEDS ORDERED: HYDR-3516 PO (15:47)
[2017-02-01 15:50] VITALS: BP 143/72; PULSE 81; RESP 16; O2SAT 97
[2017-02-11] MEDS ORDERED: CYMB60CA PO (13:45)
== END 2017-02-01 16:19 | disposition home or self-care (01) ==
LOC: PHED 11:46
DX: R10.84 Generalized abdominal pain (principal); E03.9 Hypothyroidism, unspecified; I10 Essential (primary) hypertension; Z87.442 Personal history of urinary calculi; M79.7 Fibromyalgia; K21.9 Gastro-esophageal reflux disease without esophagitis
CPT/HCPCS: 74177; 80053; 81001; 83605; 83690; 85025; 96374; 96375; 99285; J1170; J2405; Q9967